=== PATIENT | female | born 1950 | race Caucasian/White ===

== ENCOUNTER → 2016-12-30 | Outpatient (CLI) | payer MEDICARE ==
[2016-12-30 12:18] LABS: CH 31.4; CHCM 33.3; HCT 38.4 % (34.0-46.0); HDW 2.89; HGB 12.7 gm/dL (11.4-16.0); MCH 31.5 pg (25.0-35.0); MCHC 33.2 g/dL (31.0-37.0); MCV 94.9 fL (80.0-100.0); Mean Platelet Volume 6.9; RBC 4.04 m/uL (3.80-5.40)
[2016-12-30 13:51] LABS: Appearance,Urine Clear (Clear); Bilirubin,Urine Negative (Negative); Glucose,Urine (UA) Negative (Negative); Ketones,Urine Negative (Negative); Leukocyte Esterase,Urine Trace (Negative); Mucus,Urine Rare /hpf; Nitrite,Urine Negative (Negative); Particle Count 331; Protein,Urine Negative (Negative); Specific Gravity,Urine 1.002 (1.001-1.035); Squamous Epithelial Cell,Urine <1 /hpf (0-4); UA Billing (MACRO vs. MICRO) MICRO; Urobilinogen,Urine <2.0 mg/dL (<2.0); WBC,Urine 2 /hpf (0-5)
[2016-12-30 14:56] LABS: Anion Gap 14 mmol/L; Blood Urea Nitrogen 23 mg/dL (7-17); Calcium 10.2 mg/dL (8.4-10.2); Carbon Dioxide 25 mmol/L (22-30); Chloride 104 mmol/L (98-107); Glucose 91 mg/dL (74-99); Iron 91 ug/dL (37-170); Non-African American GFR(MDRD) 56 (>60 ml/min/1.73 sqM); Potassium 4.4 mmol/L (3.5-5.1); Sodium 143 mmol/L (137-145)
[2016-12-30 15:09] LABS: Total Iron Binding Capacity 325 ug/dL (265-497)
[2016-12-31 16:02] LABS: Vitamin D, 1, 25-Dihydroxy 49 pg/mL (20 - 79)
== END | disposition home or self-care (01) ==
LOC: LABWHC1 11:35
PROVIDERS: ATTEND Nurse Practitioner Family
DX: N18.3 Chronic kidney disease, stage 3 (moderate) (principal); E83.52 Hypercalcemia; D64.9 Anemia, unspecified; N39.0 Urinary tract infection, site not specified; E21.3 Hyperparathyroidism, unspecified; E55.9 Vitamin D deficiency, unspecified
CPT/HCPCS: 36415; 80048; 81001; 82164; 82306; 82652; 82728; 83540; 83550; 83970; 85027

== ENCOUNTER → 2017-07-04 | Outpatient (CLI) | payer MEDICARE ==
[2017-07-04 12:07] LABS: Appearance,Urine Clear (Clear); Bilirubin,Urine Negative (Negative); Glucose,Urine (UA) Negative (Negative); Ketones,Urine Negative (Negative); Leukocyte Esterase,Urine Negative (Negative); Nitrite,Urine Negative (Negative); Protein,Urine Negative (Negative); Specific Gravity,Urine 1.004 (1.001-1.035); UA Billing (MACRO vs. MICRO) CHEM; Urobilinogen,Urine <2.0 mg/dL (<2.0)
[2017-07-04 12:36] LABS: Calcium 10.2 mg/dL (8.4-10.2); Magnesium 1.9 mg/dL (1.6-2.3); Phosphorous 3.4 mg/dL (2.5-4.5); Potassium 4.3 mmol/L (3.5-5.1); Uric Acid 5.3 mg/dL (3.7-7.4)
[2017-07-04 12:42] LABS: Basophils # (A) 0.1 k/uL (0-0.2); Basophils % (A) 1 %; CH 32.3; CHCM 33.4; Eosinophils # (A) 0.2 k/uL (0-0.7); Eosinophils % (A) 4 %; HCT 38.3 % (34.0-46.0); HDW 2.79; HGB 12.5 gm/dL (11.4-16.0); Luc # (Auto) 0.12; Luc % (Auto) 2; Lymphocytes # (A) 1.9 k/uL (1.0-4.8); Lymphocytes % (A) 38 %; MCH 31.8 pg (25.0-35.0); MCHC 32.7 g/dL (31.0-37.0); MCV 97.2 fL (80.0-100.0); Mean Platelet Volume 7.6; Monocytes # (A) 0.3 k/uL (0-1.0); Monocytes % (A) 6 %; Neutrophils # (A) 2.4 k/uL (1.3-7.7); Neutrophils % (A) 48 %; RBC 3.94 m/uL (3.80-5.40); RDW 15.3 % (11.5-15.5); WBC (Perox) 3.46
[2017-07-04 18:44] LABS: Iron Saturation 29.34 (12.00-45.00)
== END | disposition home or self-care (01) ==
LOC: LABWHC1 11:27
PROVIDERS: ATTEND Internal Medicine Nephrology
DX: E55.9 Vitamin D deficiency, unspecified (principal); E21.3 Hyperparathyroidism, unspecified; M10.9 Gout, unspecified; N39.0 Urinary tract infection, site not specified; D63.1 Anemia in chronic kidney disease; N18.3 Chronic kidney disease, stage 3 (moderate)
CPT/HCPCS: 36415; 80048; 81003; 82306; 82728; 83540; 83550; 83735; 83970; 84100; 84550; 85025

== ENCOUNTER → 2017-08-11 | Outpatient (CLI) | payer MEDICARE ==
[2017-08-11 14:21] LABS: ALT 25 U/L (9-52); AST 21 U/L (14-36); Alkaline Phosphatase 87 U/L (38-126); Anion Gap 10 mmol/L; Blood Urea Nitrogen 16 mg/dL (7-17); Calcium 10.1 mg/dL (8.4-10.2); Carbon Dioxide 24 mmol/L (22-30); Chloride 108 mmol/L (98-107); Glucose 88 mg/dL (74-99); Non-African American GFR(MDRD) 52 (>60 ml/min/1.73 sqM); Potassium 4.3 mmol/L (3.5-5.1); Sodium 142 mmol/L (137-145); Total Bilirubin 0.3 mg/dL (0.2-1.3); Total Protein 7.3 g/dL (6.3-8.2)
== END | disposition home or self-care (01) ==
LOC: LABWHC1 13:32
PROVIDERS: ATTEND Internal Medicine Endocrinology, Diabetes & Metabolism
DX: E21.0 Primary hyperparathyroidism (principal)
CPT/HCPCS: 36415; 80053; 81050; 82306; 82340; 83970

== ENCOUNTER → 2017-08-20 | Outpatient (CLI) | payer MEDICARE ==
--- NOTE | 2017-08-20 16:57 | US ---
EXAMINATION TYPE: US thyroid st tissue head/neck DATE OF EXAM: 08/20/2017 COMPARISON: NM parathyroid 07/22/2017 CLINICAL HISTORY: E21.0 HYPERPARATHYROIDISM. Patient states she has been taking thyroid medication si [id number]. Had radiation treatment for thyroid in 1982 due to Graves Disease. Difficult exam due to pa tient body habitus GLAND SIZE: Right Lobe: Unable to visualize thyroid tissue with certainty Left Lobe: Unable to visualize thyroid tissue with certainty NODULES RIGHT: # of nodules measured on right: 0 LEFT: # of nodules measured on left: 0 ISTHMUS: # of nodules measured in the isthmus: 0 Unable to visualize thyroid tissue with certainty. Had second techShyla, come in to confirm. Bila teral neck scanned, no evidence of lymphadenopathy. IMPRESSION: No thyroid gland tissue identified. No evidence of a discrete neck mass.
--- NOTE | 2017-08-21 17:47 | BD ---
EXAMINATION TYPE: MG DEXA axial skeleton. DATE OF EXAM: 08/20/2017 COMPARISON: NONE CLINICAL HISTORY: 66-year-old female hyperparathyroidism Height: 5 FT 2 1/2 IN Weight: 210 FRAX RISK QUESTIONS: Alcohol (3 or more units per day): NO Family History (Parent hip fracture): NO Glucocorticoids (More than 3mos): NO (Ex: prednisone, prednisolone, methylprednisolone, dexamethasone, and hydrocortisone). History of Fracture in Adulthood: NO Secondary Osteoporosis: 1. Type 1 Diabetes: NO 2. Hyperthyroidism: YES 3. Menopause before 45: YES 4. Malnutrition: NO 5. Chronic liver disease: NO Rheumatoid Arthritis: YES Current Tobacco Use: NO RISK FACTORS HISTORY OF: Surgery to Spine/Hip(right/left)/Wrist (right/left): LUMBAR SURG When: 2014 RT HIP REPLACEMENT 1994 REVISION IN 2004 Family History of Osteoporosis: YES Active: YES Postmenopausal woman: AGE 47 MEDICATIONS: Thyroid Medications: YES Which medication: LEVOTHYROXINE How Long: SINCE 1982 Additional Medications: LISINOPRIL, LASIX, AMITRIPTYLINE, AMBIEN, MUSCLE RELAXER, LEVOTHYROXINE ,ALLP URINAL, POTASSIUM Additional History: BOTH SHOULDERS HAVE BEEN REPLACED EXAM MEASUREMENTS: Bone mineral density about the L hip (g/cm2): 0.738 T Score values are as follows: -----L Neck: -2.2 -----L Total: -1.2 Bone mineral density has: DECREASED -9.9% since study of: 2007 IMPRESSION: Osteopenia (T Score between -2.5 and -1 as noted by T score values There is slightly increased risk of fracture and the patient may be considered for treatment. Re-Screen 2-5 years. NOTE: T-SCORE=SD OF THE YOUNG ADULT MEAN.
== END | disposition home or self-care (01) ==
LOC: RADUSWWP 15:54
PROVIDERS: ATTEND Internal Medicine Endocrinology, Diabetes & Metabolism
DX: M85.80 Other specified disorders of bone density and structure, unspecified site (principal); E21.0 Primary hyperparathyroidism
CPT/HCPCS: 76536; 77080

== ENCOUNTER → 2017-11-03 | Outpatient (CLI) | payer MEDICARE ==
--- NOTE | 2017-11-04 11:31 | MM ---
Reason for exam: screening (asymptomatic). Last mammogram was performed 2 years and 4 months ago. History: Patient is postmenopausal and has history of other cancer at age 32. Physical Findings: A clinical breast exam by your physician is recommended on an annual basis and results should be correlated with mammographic findings. MG 3D Screening Mammo W/Cad Bilateral CC and MLO view(s) were taken. Prior study comparison: June 27, 2015, bilateral MG screening mammo w CAD. June 04, 2012, bilateral digital screening mammo w/CAD. There are scattered fibroglandular densities. There is no discrete abnormality. No significant changes when compared with prior studies. ASSESSMENT: Negative, BI-RAD 1 RECOMMENDATION: Routine screening mammogram of both breasts in 1 year.
== END | disposition home or self-care (01) ==
LOC: RADMAMWWP 12:59
PROVIDERS: ATTEND Family Medicine
DX: Z12.31 Encounter for screening mammogram for malignant neoplasm of breast (principal)
CPT/HCPCS: 77063; 77067

== ENCOUNTER 2017-11-04 09:31 | Day surgery (SDC) | payer MEDICARE ==
[2017-11-03 09:13] VITALS: BMI 36.6
[~2017-11-04 09:31] MED LIST: LACTATED RINGERS 1,000 ML IV SCH
[2017-11-04] MEDS ORDERED: LIDOCAINE 1% 20 ML VIAL (10MG/ML) FOR IV START INTRADERMA ONE (10:05)
[2017-11-04 10:07] VITALS: TEMP 98.2
[2017-11-04] MEDS ORDERED: PROPOFOL 10 MG/ML 20 ML VIAL IV ONE (10:50)
[2017-11-04 11:28] VITALS: PULSE 89; RESP 16
--- NOTE | 2017-11-04 11:33 | P.PCN ---
Date of Procedure: 11/04/17 Procedure(s) Performed: Procedure: Total colonoscopy. Preoperative diagnosis: Screening for neoplasia, patient has history of diverticulitis. Postoperative diagnosis: Diverticulosis with no evidence of acute diverticulitis , strictures, polyps or cancer. Preparation: HalfLytely prep. Sedation: Was provided by anesthesia. Brief clinical history: The patient is a 67-year-old female who is scheduled for this evaluation for screening for neoplasia age being her risk factor. She had a colonoscopy back in 2009 and that showed sigmoid diverticulosis. The patient had a bout of diverticulitis at that time. No recent such episodes or any overt bleeding or anemia. Procedure: With the patient on her left lateral decubitus position and after informed consent and adequate sedation, the perianal area was inspected and it did not show any fissures or fistulas. There were no masses felt on digital rectal examination. The Olympus CFQ 160L video colonoscope was then inserted in the rectum in the usual fashion and advanced to the cecum. There were multiple diverticular orifices seen scattered, mostly on the left side with some on the right side and around the hepatic flexure with no evidence of acute diverticulitis or strictures. The mucosa appeared healthy. No polyps or tumors were seen. The patient tolerated the procedure well. Plan: The patient was reassured. Discussed dietary measures. She will follow- up with you as planned and I recommended repeat exam in 10 years.
[2017-11-04 11:43] VITALS: BP 124/70
== END 2017-11-04 12:12 | disposition home or self-care (01) ==
LOC: ORWHC2ENDO 09:31
DX: Z12.11 Encounter for screening for malignant neoplasm of colon (principal); K57.30 Diverticulosis of large intestine without perforation or abscess without bleeding; K21.9 Gastro-esophageal reflux disease without esophagitis; M79.7 Fibromyalgia; I10 Essential (primary) hypertension; Z86.718 Personal history of other venous thrombosis and embolism; M19.90 Unspecified osteoarthritis, unspecified site; E07.9 Disorder of thyroid, unspecified; M06.9 Rheumatoid arthritis, unspecified; Z79.899 Other long term (current) drug therapy
CPT/HCPCS: J2704; G0121; 45378

== ENCOUNTER → 2017-12-08 | Outpatient (CLI) | payer MEDICARE ==
[2017-12-08 13:21] LABS: HCT 35.9 % (34.0-46.0); HGB 12.4 gm/dL (11.4-16.0); MCH 32.1 pg (25.0-35.0); MCHC 34.5 g/dL (31.0-37.0); Mean Platelet Volume 7.1; Platelet Count 256 k/uL (150-450); RBC 3.86 m/uL (3.80-5.40); RDW 14.4 % (11.5-15.5); WBC 5.8 k/uL (3.8-10.6)
[2017-12-08 13:48] LABS: Albumin 4.1 g/dL (3.5-5.0); Calcium 10.1 mg/dL (8.4-10.2); Potassium 4.6 mmol/L (3.5-5.1); Total Bilirubin 0.4 mg/dL (0.2-1.3); Total Protein 6.9 g/dL (6.3-8.2)
[2017-12-08 14:06] LABS: T4, Free (Free Thyroxine) 1.84 ng/dL (0.78-2.19)
[2017-12-08 20:27] LABS: Parathyroid Hormone Intact 43.4 pg/mL (14.0-72.0)
[2017-12-08 20:42] LABS: Vitamin D 25 Hydroxy 26.9 ng/mL (30.0-100.0)
[2017-12-08 20:57] LABS: Thyroid Peroxidase Antibodies <28.0 U/mL (0.0-60.0)
[2017-12-09 16:38] LABS: Thyroid Stim Immun Quant <0.10 IU/L (<0.10)
[2017-12-12 18:36] LABS: Selenium 61 mcg/L (63-160)
== END | disposition home or self-care (01) ==
LOC: LABWHC1 12:50
PROVIDERS: ATTEND Internal Medicine Endocrinology, Diabetes & Metabolism
DX: E83.52 Hypercalcemia (principal); D64.9 Anemia, unspecified; N18.3 Chronic kidney disease, stage 3 (moderate); D55.9 Anemia due to enzyme disorder, unspecified; E56.9 Vitamin deficiency, unspecified; E05.00 Thyrotoxicosis with diffuse goiter without thyrotoxic crisis or storm
CPT/HCPCS: 36415; 80053; 82306; 83970; 84255; 84439; 84443; 84445; 84481; 85027; 86376

== ENCOUNTER → 2018-06-08 | Outpatient (CLI) | payer MEDICARE ==
[2018-06-08 14:22] LABS: HCT 43.3 % (34.0-46.0); MCH 30.6 pg (25.0-35.0); MCHC 32.3 g/dL (31.0-37.0); MCV 94.8 fL (80.0-100.0); Mean Platelet Volume 7.2; Platelet Count 288 k/uL (150-450); RBC 4.57 m/uL (3.80-5.40); RDW 14.3 % (11.5-15.5); WBC 7.7 k/uL (3.8-10.6)
[2018-06-08 14:26] LABS: Creatinine,Urine Random 65.6 mg/dL
[2018-06-08 14:44] LABS: Albumin 4.5 g/dL (3.5-5.0); Calcium 10.1 mg/dL (8.4-10.2); Potassium 4.2 mmol/L (3.5-5.1); Total Bilirubin 0.6 mg/dL (0.2-1.3); Total Protein 7.7 g/dL (6.3-8.2); Uric Acid 5.3 mg/dL (3.7-7.4)
[2018-06-08 19:23] LABS: Vitamin D 25 Hydroxy 39.2 ng/mL (30.0-100.0)
[2018-06-08 19:59] LABS: Parathyroid Hormone Intact 95.3 pg/mL (14.0-72.0)
== END | disposition home or self-care (01) ==
LOC: LABWHC1 13:46
PROVIDERS: ATTEND Internal Medicine Endocrinology, Diabetes & Metabolism
DX: N18.3 Chronic kidney disease, stage 3 (moderate) (principal); D63.1 Anemia in chronic kidney disease; E55.9 Vitamin D deficiency, unspecified; M10.9 Gout, unspecified; E21.3 Hyperparathyroidism, unspecified; E03.8 Other specified hypothyroidism
CPT/HCPCS: 36415; 80053; 82306; 82570; 83970; 84156; 84443; 84550; 85027

== ENCOUNTER → 2018-12-21 | Outpatient (CLI) | payer MEDICARE ==
[2018-12-21 19:34] LABS: Albumin 4.6 g/dL (3.80-4.90); Albumin/Globulin Ratio 2.09 (1.60-3.17); Anion Gap 11.7 mmol/L (4.00-12.00); Carbon Dioxide 26.3 mmol/L (21.6-31.8); Globulin 2.2 g/dL (1.6-3.3); LDL Cholesterol,Calculated 82.8 mg/dL (0.0-131.0); Potassium 4.3 mmol/L (3.5-5.5); Total Bilirubin 0.5 mg/dL (0.2-1.2); Total Protein 6.8 g/dL (6.2-8.2); VLDL Calculation 48.2 mg/dL (5.00-40.00); Vitamin D 25 Hydroxy 36.7 ng/mL (30.0-100.0)
[2018-12-21 20:05] LABS: Parathyroid Hormone Intact 66.5 pg/mL (14.0-72.0)
== END | disposition home or self-care (01) ==
LOC: LABWHC1 11:38
PROVIDERS: ATTEND Family Medicine
DX: N18.3 Chronic kidney disease, stage 3 (moderate) (principal); E21.0 Primary hyperparathyroidism
CPT/HCPCS: 36415; 80053; 80061; 82306; 83970; 84443

== ENCOUNTER → 2019-02-02 | Outpatient (CLI) | payer MEDICARE ==
[2019-02-02 12:22] LABS: HCT 41.3 % (34.0-46.0); HGB 13.5 gm/dL (11.4-16.0); MCH 30.8 pg (25.0-35.0); MCHC 32.8 g/dL (31.0-37.0); Platelet Count 265 k/uL (150-450); RBC 4.39 m/uL (3.80-5.40); RDW 15.3 % (11.5-15.5); WBC 5.4 k/uL (3.8-10.6)
[2019-02-02 19:02] LABS: Parathyroid Hormone Intact 71.1 pg/mL (14.0-72.0)
[2019-02-02 20:11] LABS: Anion Gap 10.6 mmol/L (4.00-12.00); Calcium 9.6 mg/dL (8.7-10.3); Carbon Dioxide 24.4 mmol/L (21.6-31.8); Potassium 3.9 mmol/L (3.5-5.5); Uric Acid 4.9 mg/dL (2.9-7.7)
[2019-02-02 20:23] LABS: Creatinine,Urine Random 11.5 mg/dL; Vitamin D 25 Hydroxy 36.9 ng/mL (30.0-100.0)
[2019-02-02 20:24] LABS: Total Protein,Urine Random <4.0 mg/dL (0.0-13.5)
== END | disposition home or self-care (01) ==
LOC: LABWHC1 11:45
PROVIDERS: ATTEND Nurse Practitioner Family
DX: N18.3 Chronic kidney disease, stage 3 (moderate) (principal); N25.81 Secondary hyperparathyroidism of renal origin; E55.9 Vitamin D deficiency, unspecified; M10.9 Gout, unspecified
CPT/HCPCS: 36415; 80048; 82306; 82570; 83970; 84156; 84550; 85027

== ENCOUNTER → 2019-03-10 | Outpatient (CLI) | payer MEDICARE ==
--- NOTE | 2019-03-10 11:22 | XR ---
EXAM TYPE: LUMBAR SPINE X RAY SERIES COMPARISON: NONE HISTORY: Pain TECHNIQUE: 3 views are submitted. FINDINGS: Extensive postsurgical changes are seen. Diffuse osteopenia noted. Hypertrophic arthropathy of the SI joints. Multilevel degenerative disc disease. Vascular calcifications noted. Grade 1 anterolisthesis L4 on L5. IMPRESSION: 1. Extensive postsurgical change with grade 1 anterolisthesis L4 on L5. 2. Multilevel degenerative disc disease with diffuse osteopenia. Suspect multilevel foraminal encroac hment. There is poor definition of the superior margin of the L3 vertebral body which may be technica l rather than related pathology or infection. Recommend follow-up CT or MRI.
== END | disposition home or self-care (01) ==
LOC: RADXRMAIN 10:52
PROVIDERS: ATTEND Family Medicine
DX: M43.16 Spondylolisthesis, lumbar region (principal); M51.36 Other intervertebral disc degeneration, lumbar region; M85.88 Other specified disorders of bone density and structure, other site; Z98.890 Other specified postprocedural states
CPT/HCPCS: 72100

== ENCOUNTER → 2019-04-28 | Outpatient (CLI) | payer MEDICARE ==
[2019-04-28 19:27] LABS: Vitamin D 25 Hydroxy 42.2 ng/mL (30.0-100.0)
[2019-04-28 19:29] LABS: African American GFR (CKD) 54.5 (60.0-200.0); Albumin 4.5 g/dL (3.80-4.90); Albumin/Globulin Ratio 2.14 (1.60-3.17); Anion Gap 11.3 mmol/L (4.00-12.00); Calcium 9.7 mg/dL (8.7-10.3); Carbon Dioxide 24.7 mmol/L (21.6-31.8); Globulin 2.1 g/dL (1.6-3.3); Potassium 4.2 mmol/L (3.5-5.5); Total Bilirubin 0.3 mg/dL (0.2-1.2); Total Protein 6.6 g/dL (6.2-8.2)
== END | disposition home or self-care (01) ==
LOC: LABWHC1 12:30
PROVIDERS: ATTEND Internal Medicine Endocrinology, Diabetes & Metabolism
DX: E21.0 Primary hyperparathyroidism (principal)
CPT/HCPCS: 36415; 80053; 82306; 83970

== ENCOUNTER → 2019-10-05 | Outpatient (CLI) | payer MEDICARE ==
[2019-10-05 15:42] LABS: Basophils # (A) 0.1 k/uL (0-0.2); Basophils % (A) 1 %; Eosinophils # (A) 0.3 k/uL (0-0.7); Eosinophils % (A) 4 %; HCT 43.1 % (34.0-46.0); HGB 13.7 gm/dL (11.4-16.0); Lymphocytes # (A) 2.2 k/uL (1.0-4.8); Lymphocytes % (A) 27 %; MCH 30.1 pg (25.0-35.0); MCHC 31.8 g/dL (31.0-37.0); MCV 94.5 fL (80.0-100.0); Mean Platelet Volume 7.4; Monocytes # (A) 0.6 k/uL (0-1.0); Monocytes % (A) 7 %; Neutrophils # (A) 4.7 k/uL (1.3-7.7); Neutrophils % (A) 59 %; Platelet Count 298 k/uL (150-450); RBC 4.56 m/uL (3.80-5.40); RDW 13.5 % (11.5-15.5); WBC 8.1 k/uL (3.8-10.6)
[2019-10-05 16:16] LABS: Appearance,Urine Clear (Clear); Bilirubin,Urine Negative (Negative); Blood,Urine Negative (Negative); Color,Urine Light Yellow; Glucose,Urine (UA) Negative (Negative); Hyaline Casts,Urine 6 /lpf (0-2); Ketones,Urine Negative (Negative); Leukocyte Esterase,Urine Moderate (Negative); Mucus,Urine Rare /hpf; Nitrite,Urine Negative (Negative); PH, Urine 6.5 (5.0-8.0); Protein,Urine Negative (Negative); RBC,Urine <1 /hpf (0-5); Specific Gravity,Urine 1.013 (1.001-1.035); Squamous Epithelial Cell,Urine 1 /hpf (0-4); Urobilinogen,Urine <2.0 mg/dL (<2.0); WBC,Urine 15 /hpf (0-5)
[2019-10-05 16:29] LABS: Protein/Creatinine Ratio,Urine 0.1
[2019-10-06 00:11] LABS: % Iron Saturation 19.34 (12.00-45.00); African American GFR (CKD) 49.5 (60.0-200.0); Albumin 4.8 g/dL (3.80-4.90); Anion Gap 9.9 mmol/L (4.00-12.00); BUN/Creat Ratio 18.46 Ratio (12.00-20.00); Calcium 9.6 mg/dL (8.7-10.3); Carbon Dioxide 28.1 mmol/L (21.6-31.8); Magnesium 2.1 mg/dL (1.5-2.4); Non-African American GFR(CKD) 42.7 (60.0-200.0); Phosphorus 3.3 mg/dL (2.4-5.1); Potassium 4.1 mmol/L (3.5-5.5); Uric Acid 4.9 mg/dL (2.9-7.7)
[2019-10-06 00:19] LABS: Ferritin 120.2 ng/mL (10.0-291.0)
== END | disposition home or self-care (01) ==
LOC: LABWHC1 14:44
PROVIDERS: ATTEND Internal Medicine Nephrology
DX: N39.0 Urinary tract infection, site not specified (principal); D63.1 Anemia in chronic kidney disease; N18.9 Chronic kidney disease, unspecified; E55.9 Vitamin D deficiency, unspecified; N25.81 Secondary hyperparathyroidism of renal origin; R80.9 Proteinuria, unspecified
CPT/HCPCS: 36415; 80048; 81001; 82040; 82306; 82570; 82728; 83540; 83550; 83735; 83970; 84100; 84156; 84550; 85025

== ENCOUNTER → 2019-11-01 | Outpatient (CLI) | payer MEDICARE ==
[2019-11-02 01:01] LABS: African American GFR (CKD) 54.2 (60.0-200.0); Albumin 4.6 g/dL (3.80-4.90); Albumin/Globulin Ratio 2.09 (1.60-3.17); Anion Gap 12.7 mmol/L (4.00-12.00); BUN/Creat Ratio 21.67 Ratio (12.00-20.00); Calcium 9.8 mg/dL (8.7-10.3); Carbon Dioxide 26.3 mmol/L (21.6-31.8); Globulin 2.2 g/dL (1.6-3.3); Non-African American GFR(CKD) 46.7 (60.0-200.0); Potassium 4.4 mmol/L (3.5-5.5); Total Bilirubin 0.4 mg/dL (0.3-1.2); Total Protein 6.8 g/dL (6.2-8.2)
== END | disposition home or self-care (01) ==
LOC: LABWHC1 14:21
PROVIDERS: ATTEND Internal Medicine Endocrinology, Diabetes & Metabolism
DX: N18.3 Chronic kidney disease, stage 3 (moderate) (principal); E21.0 Primary hyperparathyroidism
CPT/HCPCS: 36415; 80053; 82306; 83970

== ENCOUNTER → 2020-03-29 | Outpatient (CLI) | payer MEDICARE ==
[2020-03-29 15:35] LABS: Appearance,Urine Clear (Clear); Bilirubin,Urine Negative (Negative); Blood,Urine Negative (Negative); Color,Urine Light Yellow; Glucose,Urine (UA) Negative (Negative); Hyaline Casts,Urine 4 /lpf (0-2); Ketones,Urine Negative (Negative); Leukocyte Esterase,Urine Small (Negative); Mucus,Urine Rare /hpf; Nitrite,Urine Negative (Negative); Protein,Urine Negative (Negative); Specific Gravity,Urine 1.008 (1.001-1.035); Squamous Epithelial Cell,Urine <1 /hpf (0-4); Urobilinogen,Urine <2.0 mg/dL (<2.0); WBC,Urine 3 /hpf (0-5)
[2020-03-29 15:45] LABS: Basophils # (A) 0.1 k/uL (0-0.2); Basophils % (A) 1 %; Eosinophils # (A) 0.2 k/uL (0-0.7); Eosinophils % (A) 3 %; HCT 41.3 % (34.0-46.0); HGB 13.1 gm/dL (11.4-16.0); Lymphocytes # (A) 1.4 k/uL (1.0-4.8); Lymphocytes % (A) 19 %; MCH 30.8 pg (25.0-35.0); MCHC 31.9 g/dL (31.0-37.0); MCV 96.6 fL (80.0-100.0); Mean Platelet Volume 8.4; Monocytes # (A) 0.5 k/uL (0-1.0); Monocytes % (A) 7 %; Neutrophils # (A) 5.2 k/uL (1.3-7.7); Neutrophils % (A) 69 %; Platelet Count 257 k/uL (150-450); RBC 4.27 m/uL (3.80-5.40); RDW 14.4 % (11.5-15.5); WBC 7.5 k/uL (3.8-10.6)
[2020-03-29 23:36] LABS: % Iron Saturation 12.65 (12.00-45.00)
[2020-03-29 23:37] LABS: African American GFR (CKD) 54.2 (60.0-200.0); Albumin 4.5 g/dL (3.80-4.90); BUN/Creat Ratio 15.83 Ratio (12.00-20.00); Calcium 9.9 mg/dL (8.7-10.3); Magnesium 2.2 mg/dL (1.5-2.4); Non-African American GFR(CKD) 46.7 (60.0-200.0); Phosphorus 2.8 mg/dL (2.4-5.1); Potassium 4.8 mmol/L (3.5-5.5)
[2020-03-29 23:44] LABS: Ferritin 63.8 ng/mL (10.0-291.0)
[2020-03-30 01:21] LABS: Creatinine,Urine Random 39.1 mg/dL
[2020-03-30 02:05] LABS: Total Protein,Urine Random <4.0 mg/dL (0.0-13.5)
== END | disposition home or self-care (01) ==
LOC: LABWHC1 12:52
PROVIDERS: ATTEND Internal Medicine Nephrology
DX: N18.3 Chronic kidney disease, stage 3 (moderate) (principal); D63.1 Anemia in chronic kidney disease; E55.9 Vitamin D deficiency, unspecified; N25.81 Secondary hyperparathyroidism of renal origin; M10.9 Gout, unspecified; N39.0 Urinary tract infection, site not specified; R80.9 Proteinuria, unspecified
CPT/HCPCS: 36415; 80048; 81001; 82040; 82306; 82570; 82728; 83540; 83550; 83735; 83970; 84100; 84156; 84550; 85025

== ENCOUNTER → 2020-04-05 | Outpatient (CLI) | payer MEDICARE ==
--- NOTE | 2020-04-05 14:11 | XR ---
EXAMINATION TYPE: XR chest 2V DATE OF EXAM: 04/05/2020 COMPARISON: 05/02/14 HISTORY: Shortness of breath TECHNIQUE: Frontal and lateral views of the chest are obtained. FINDINGS: Scattered senescent parenchymal changes noted. Hyperinflation compatible with COPD. No evidence for infiltrate. No evidence for atelectasis. Heart size is stable. Mediastinal structures are stable and grossly unremarkable. No evidence for hilar prominence. Degenerative changes dorsal spine. IMPRESSION: 1. No evidence for acute pulmonary disease.
== END | disposition home or self-care (01) ==
LOC: RADXRMAIN 13:51
PROVIDERS: ATTEND Family Medicine
DX: R06.09 Other forms of dyspnea (principal)
CPT/HCPCS: 71046

== ENCOUNTER → 2020-05-26 | Outpatient (CLI) | payer MEDICARE ==
[2020-05-26 20:45] LABS: African American GFR (CKD) 60.2 (60.0-200.0); Albumin 4.5 g/dL (3.80-4.90); Albumin/Globulin Ratio 1.88 (1.60-3.17); Anion Gap 7.2 mmol/L (4.00-12.00); Calcium 10.2 mg/dL (8.7-10.3); Carbon Dioxide 28.8 mmol/L (21.6-31.8); Globulin 2.4 g/dL (1.6-3.3); Non-African American GFR(CKD) 51.9 (60.0-200.0); Potassium 4.8 mmol/L (3.5-5.5); Total Bilirubin 0.5 mg/dL (0.2-1.2); Total Protein 6.9 g/dL (6.2-8.2)
== END | disposition home or self-care (01) ==
LOC: LABWHC1 11:44
PROVIDERS: ATTEND Internal Medicine Endocrinology, Diabetes & Metabolism
DX: E21.0 Primary hyperparathyroidism (principal); E03.8 Other specified hypothyroidism
CPT/HCPCS: 36415; 80053; 82306; 83970; 84443

== ENCOUNTER → 2020-05-26 | Outpatient (CLI) | payer MEDICARE ==
--- NOTE | 2020-05-30 13:55 | MM ---
Reason for exam: screening (asymptomatic). Last mammogram was performed 2 years and 7 months ago. History: Patient is postmenopausal and has history of other cancer at age 32. Physical Findings: A clinical breast exam by your physician is recommended on an annual basis and results should be correlated with mammographic findings. MG 3D Screening Mammo W/Cad Bilateral CC and MLO view(s) were taken. XCCL view(s) were taken of the left breast. Prior study comparison: November 03, 2017, bilateral MG 3d screening mammo w/cad. June 27, 2015, bilateral MG screening mammo w CAD. There are scattered fibroglandular densities. No significant changes when compared with prior studies. ASSESSMENT: Benign, BI-RAD 2 RECOMMENDATION: Routine screening mammogram of both breasts in 1 year.
== END | disposition home or self-care (01) ==
LOC: RADMAMWWP 11:03
PROVIDERS: ATTEND Family Medicine
DX: Z12.31 Encounter for screening mammogram for malignant neoplasm of breast (principal)
CPT/HCPCS: 77063; 77067

== ENCOUNTER → 2020-10-16 | Outpatient (CLI) | payer MEDICARE ==
[2020-10-16 13:23] LABS: Basophils # (A) 0.1 k/uL (0-0.2); Basophils % (A) 1 %; Eosinophils # (A) 0.4 k/uL (0-0.7); Eosinophils % (A) 5 %; HCT 42.5 % (34.0-46.0); HGB 13.7 gm/dL (11.4-16.0); Lymphocytes # (A) 2.1 k/uL (1.0-4.8); Lymphocytes % (A) 27 %; MCH 30.9 pg (25.0-35.0); MCHC 32.2 g/dL (31.0-37.0); MCV 95.8 fL (80.0-100.0); Mean Platelet Volume 7.6; Monocytes # (A) 0.5 k/uL (0-1.0); Monocytes % (A) 7 %; Neutrophils # (A) 4.5 k/uL (1.3-7.7); Neutrophils % (A) 59 %; Platelet Count 289 k/uL (150-450); RBC 4.43 m/uL (3.80-5.40); RDW 15.3 % (11.5-15.5); WBC 7.7 k/uL (3.8-10.6)
[2020-10-16 13:46] LABS: Creatinine,Urine Random 18.5 mg/dL; Protein/Creatinine Ratio,Urine 0.595
[2020-10-16 13:48] LABS: Appearance,Urine Clear (Clear); Bilirubin,Urine Negative (Negative); Blood,Urine Negative (Negative); Color,Urine Colorless; Glucose,Urine (UA) Negative (Negative); Ketones,Urine Negative (Negative); Leukocyte Esterase,Urine Small (Negative); Mucus,Urine Rare /hpf; Nitrite,Urine Negative (Negative); PH, Urine 5.5 (5.0-8.0); Protein,Urine Negative (Negative); Specific Gravity,Urine 1.005 (1.001-1.035); Urobilinogen,Urine <2.0 mg/dL (<2.0); WBC,Urine 2 /hpf (0-5)
[2020-10-16 21:03] LABS: Ferritin 90.1 ng/mL (10.0-291.0)
[2020-10-16 21:13] LABS: % Iron Saturation 43.17 (12.00-45.00); African American GFR (CKD) 60.2 (60.0-200.0); Albumin 4.9 g/dL (3.80-4.90); Anion Gap 12.4 mmol/L (4.00-12.00); Carbon Dioxide 26.6 mmol/L (21.6-31.8); Non-African American GFR(CKD) 51.9 (60.0-200.0); Phosphorus 3.2 mg/dL (2.4-5.1); Uric Acid 5.2 mg/dL (2.9-7.7)
== END | disposition home or self-care (01) ==
LOC: LABWHC1 11:50
PROVIDERS: ATTEND Nurse Practitioner Family
DX: N18.30 Chronic kidney disease, stage 3 unspecified (principal); D63.1 Anemia in chronic kidney disease; E55.9 Vitamin D deficiency, unspecified; N25.81 Secondary hyperparathyroidism of renal origin; M10.9 Gout, unspecified; N39.0 Urinary tract infection, site not specified; R80.9 Proteinuria, unspecified
CPT/HCPCS: 36415; 80048; 81001; 82040; 82306; 82570; 82728; 83540; 83550; 83735; 83970; 84100; 84156; 84550; 85025

== ENCOUNTER → 2020-10-18 | Outpatient (CLI) | payer MEDICARE ==
[2020-10-18 20:15] LABS: Chol/HDL Ratio 2.75; LDL Cholesterol,Calculated 50.4 mg/dL (0.0-131.0); VLDL Calculation 33.6 mg/dL (5.00-40.00)
== END | disposition home or self-care (01) ==
LOC: LABWHC1 12:30
PROVIDERS: ATTEND Family Medicine
DX: I10 Essential (primary) hypertension (principal)
CPT/HCPCS: 36415; 80061

== ENCOUNTER → 2021-07-27 | Outpatient (CLI) | payer MEDICARE ==
[2021-07-27 13:58] LABS: Appearance,Urine Clear (Clear); Bilirubin,Urine Negative (Negative); Blood,Urine Negative (Negative); Color,Urine Light Yellow; Glucose,Urine (UA) Negative (Negative); Hyaline Casts,Urine 1 /lpf (0-2); Ketones,Urine Negative (Negative); Leukocyte Esterase,Urine Large (Negative); Mucus,Urine Rare /hpf; Nitrite,Urine Negative (Negative); PH, Urine 5.5 (5.0-8.0); Protein,Urine Negative (Negative); RBC,Urine 1 /hpf (0-5); Specific Gravity,Urine 1.011 (1.001-1.035); Squamous Epithelial Cell,Urine <1 /hpf (0-4); Urobilinogen,Urine <2.0 mg/dL (<2.0); WBC,Urine 7 /hpf (0-5)
[2021-07-27 14:06] LABS: Basophils # (A) 0.1 k/uL (0-0.2); Basophils % (A) 1 %; Eosinophils # (A) 0.3 k/uL (0-0.7); Eosinophils % (A) 4 %; HCT 41.9 % (34.0-46.0); HGB 13.7 gm/dL (11.4-16.0); Lymphocytes % (A) 28 %; MCH 31.3 pg (25.0-35.0); MCHC 32.6 g/dL (31.0-37.0); MCV 95.8 fL (80.0-100.0); Mean Platelet Volume 7.9; Monocytes # (A) 0.5 k/uL (0-1.0); Monocytes % (A) 6 %; Neutrophils # (A) 4.4 k/uL (1.3-7.7); Neutrophils % (A) 59 %; Platelet Count 278 k/uL (150-450); RBC 4.37 m/uL (3.80-5.40); RDW 14.2 % (11.5-15.5); WBC 7.4 k/uL (3.8-10.6)
[2021-07-27 14:14] LABS: INR 0.9 (<1.2); Partial Thromboplastin Time 23.2 sec (22.0-30.0)
[2021-07-27 14:26] LABS: Albumin 4.5 g/dL (3.5-5.0); Calcium 10.7 mg/dL (8.4-10.2); Total Bilirubin 0.5 mg/dL (0.2-1.3); Total Protein 7.4 g/dL (6.3-8.2)
== END | disposition home or self-care (01) ==
LOC: LABPAT 13:06
PROVIDERS: ATTEND Orthopaedic Surgery
DX: Z01.812 Encounter for preprocedural laboratory examination (principal)
CPT/HCPCS: 80053; 81001; 85025; 85610; 85730; 86850; 86900; 86901; 87070

== ENCOUNTER 2021-08-07 11:49 | Day surgery (SDC) | payer MEDICARE ==
[2021-08-03 11:23] VITALS: BMI 38.4
[~2021-08-07 11:49] MED LIST changes: +ACETAMINOPHEN TAB 500 MG TAB PO PRN; +GABAPENTIN 300 MG CAP PO PRN; -LACTATED RINGERS 1,000 ML IV SCH; +MELOXICAM 7.5 MG TAB PO PRN; +TRANEXAMIC ACID 1,000 MG in SODIUM CHLORIDE 0.9% 100 ML IVPB PRN
[2021-08-07] MEDS ORDERED: MIDAZOLAM 2 MG/2 ML VIAL IV PRN (11:50)
[2021-08-07] MEDS ORDERED: ONDANSETRON 4 MG/2 ML VIAL IVP ONE (11:50)
[2021-08-07] MEDS ORDERED: LIDOCAINE 1% (10MG/ML) FOR IV START INTRADERMA PRN (11:50)
[2021-08-07] MEDS ORDERED: DEXAMETHASONE SOD PHOSPHATE 4 MG/ML 1 ML VIAL IV ONE (11:50)
[2021-08-07] MEDS ORDERED: LACTATED RINGERS 1,000 ML IV SCH (11:50)
[2021-08-07] MEDS ORDERED: HYDROmorphone 0.5 MG/0.5 ML SYRINGE IVP PRN ×2 (13:13)
[2021-08-07] MEDS ORDERED: ONDANSETRON 4 MG/2 ML VIAL IVP PRN (13:13)
[2021-08-07] MEDS ORDERED: NALOXONE 0.4 MG/ML 1 ML VIAL IV PRN (13:13)
[2021-08-07] MEDS ORDERED: HYDROmorphone 0.2 MG/1 ML SYRINGE IVP PRN (13:13)
[2021-08-07] MEDS ORDERED: MAGNESIUM HYDROXIDE 2,400 MG/10 ML CUP PO PRN (13:13)
[2021-08-07] MEDS ORDERED: SODIUM CHLORIDE 0.9% IRRIG 1,000 ML BTL IRRIGATION ONE (13:14)
[2021-08-07] MEDS ORDERED: PROPOFOL 10 MG/ML 20 ML VIAL IV ONE (13:14)
[2021-08-07] MEDS ORDERED: MIDAZOLAM 2 MG/2 ML VIAL ONE (13:14)
[2021-08-07] MEDS ORDERED: TRANEXAMIC ACID 1,000 MG/10 ML VIAL ONE (13:14)
[2021-08-07] MEDS ORDERED: HEPARIN SODIUM,PORCINE 10,000 UNIT/ML 1 ML VIAL ONE (13:14)
[2021-08-07] MEDS ORDERED: fentaNYL (PF) 50 MCG/ML 2 ML AMP ONE (13:14)
[2021-08-07] MEDS ORDERED: SODIUM CHLORIDE 0.9% 100 ML BAG ONE (13:14)
[2021-08-07] MEDS ORDERED: HYDROcodone/APAP 7.5-325MG 1 EACH TAB PO PRN (13:15)
[2021-08-07] MEDS ORDERED: ceFAZolin 1,000 MG in SODIUM CHLORIDE 0.9% 1,000 ML IRRIGATION ONE (13:19)
[2021-08-07] MEDS: ROPIVACAINE/EPI/CLONIDINE/KET 50 ML SYRINGE MISCELLANE PRN ×2 (13:44→14:24)
--- NOTE | 2021-08-07 14:27 | P.OP ---
Date of Procedure: 08/07/21 Preoperative Diagnosis: Severe osteoarthritis left hip Postoperative Diagnosis: Severe osteoarthritis left hip Procedure(s) Performed: Left total hip arthroplasty with a direct anterior approach Implants: [employer] Polarstem standard size 3 [employer] R3, 3 hole hemispherical acetabular shell, 48 mm [employer] Reflection 6.5 mm cancellus screw, 20 mm 2 [employer] R3, XLPE 20 acetabular liner [employer] Oxinium femoral head 32 mm, +0 All components were press-fit. The articulation is Oxinium on polyethylene. Anesthesia: spinal Surgeon: Edgar Ware Telephone Triage Nurse #1: Isabel Rain Estimated Blood Loss (ml): 50 Pathology: other (Femoral head) Condition: stable Disposition: PACU Indications for Procedure: After failure of conservative treatment we discussed the surgical and nonsurgical treatment options at length. Patient wishes to proceed with a total hip arthroplasty with a direct anterior approach. Complications specific to this procedure were discussed at length, including but not limited to infection, leg length discrepancy, dislocation, nerve injury, and fracture. Covid-19 was also discussed at length with the patient, and they are aware of the current policies and procedures. The patient was given the option of delaying surgery, but they elect to proceed knowing these risks. Patient is aware of all these complications and informed consent was obtained Operative Findings: The operative findings are consistent with severe osteoarthritis the left hip Description of Procedure: Patient was seen and evaluated in the preoperative area and the consent was reviewed. The operative site was marked with a skin marker. The patient was then brought to the operating room and given preoperative antibiotics intr avenously. 1 g of Tranexamic acid was also given intravenously. A spinal anesthetic was administered by the anesthesia department. The patient was then placed on the [place] table with the bony prominences well-padded. The hip area was then prepped with a ChloraPrep solution and draped in the usual sterile fashion. A universal timeout was then performed, which confirmed the patient's name, surg ical site, ALLERGIES, and procedure being performed on the consent. Next the incision site was located at 1 cm distal and 2 cm lateral to the anterior superior iliac spine. The skin and subcutaneous tissues were sharply incised. Incision was carefully dissected down to the fascia overlying the tensor fascia ga muscle. This fascia was then incised in line with the incision. Care was taken to stay laterally in order to avoid injuring the lateral femoral cutaneous nerve. Next, using blunt finger dissection, the tensor fascia ga muscle was dissected off its investing fascia. The muscle was then carefully retracted laterally with a cobra retractor over the lateral neck of the femur. Next, the circumflex vessels were identified and cauterized using the AquaMantis device. The anterior hip capsule was then exposed. The capsule was then opened and an inverted T fashion. Cobra retractors were then placed intracapsularly. The retractors were maintained intracapsular throughout the procedure. The proximal femur was then visualized. Fluoroscopic x-rays were then taken in order to evaluate the preoperative leg lengths. A small amount of traction was placed on the leg. The femoral neck was then osteotomized appropriate level above the lesser trochanter. A small wedge of bone was then removed from the remaining femoral head. Next, using a corkscrew the femoral head was removed from the acetabulum. On gross visual inspection, the femoral head had complete loss of articular cartilage and multiple periarticular osteophytes. The femoral head was then measured. Attention was then turned to the acetabulum. The acetabulum was exposed and any remaining labrum was excised. Sequential reaming of the acetabulum was performed using fluoroscopic guidance until there was a good bed of bleeding cancellus bone. When the appropriate size was reached, a trial was then placed. The position and fit of the trial was checked with fluoroscopy. The trial was then removed. Then, using fluoroscopic guidance, the final implant was impacted at 20 of anteversion and 40 of abduction, and fully seated in the acetabulum. 2 screws were then placed in the acetabulum. Again fluoroscopy was used to check position of the screws. Next, the liner was then impacted, with a 20 elevated liner located in the anterior superior quadrant. Component locking was confirmed. Attention was then directed to the femur. With the aid of the [place] table, the femur was externally rotated to approximately 130, extended, and adducted under the opposite leg. A side hook was then placed under the proximal femur, and the side hook elevator was used to elevate the proximal femur while releasing the capsule. Retractors were then placed. A capsular release was performed, as well as a release of the conjoined tendon, which afforded excellent visualization of the proximal femur. Next, a box osteotome was used to lateralize the proximal femur. A icer hand was then used to locate the femoral canal. Sequential broaching was then performed with appropriate size which afforded excellent fixation in the proximal femur. A trial was then placed with appropriate head and neck, and the hip was gently reduced with the aid of the [place] table. Fluoroscopy was then used to check position of the components, as well as to ensure equal leg lengths. The hip was then gently dislocated and the trials were then removed. Final implants were then impacted and the hip was again reduced. Final fluoroscopic x-rays confirmed that the components were in anatomic position, as well as equal leg lengths. The hip was also taken through range of motion, and found to be stable. The hip was then copiously irrigated with antibiotic solution with pulsatile lavage. The hip was then irrigated with Irrisept solution. The soft tissues were then injected with a ropivacaine solution, which consisted of 246.25 mg of ropivacaine, 0.5 mg of epinephrine, 30 mg of Toradol, 80 g of clonidine, and 48.45 mL of sterile water, for a total of 100 mL of fluid injected. A second dose of 1 g of Tranexamic acid was also given intravenously. Any blood collected by [employer] was then returned to the patient at this time. The fascia was then closed with 2-0 strata fix suture. The subcutaneous tissue was closed with 3-0 Vicryl. The subcuticular tissue was closed with 3-0 strata fix suture. The skin was then closed with Exofin skin glue. After the glue and dried, and Optifoam silver impregnated dressing was applied. The patient was then transferred to the recovery room in stable condition. The data entry assistant YOANNA Keyes was required due to the complexity of surgery, and the need for skilled neurosurgical nurse for positioning, draping, exposure, retraction, and closure of the wound.
[2021-08-07] MEDS ORDERED: LACTATED RINGERS 1,000 ML IV ONE (14:35)
--- NOTE | 2021-08-07 14:41 | FL ---
EXAMINATION TYPE: FL guidance operating room, XR Hip Limited LT DATE OF EXAM: 08/07/2021 CLINICAL HISTORY: Left hip pain and osteoarthritis. TECHNIQUE: Fluoroscopy. Intraoperative limited views left hip. COMPARISON: None. FINDINGS: Fluoroscopic guidance was provided during left hip replacement procedure performed by Dr. Ware. A total of 33 seconds of fluoroscopic time was utilized during the procedure and 5 spot in traoperative images are acquired. Images acquired show partial bony resection with placement of metallic prosthesis that appears satisf actory in position on frontal projection on intraoperative images obtained. IMPRESSION: As Above.
[2021-08-07] MEDS: HYDROmorphone 0.5 MG/0.5 ML SYRINGE IVP PRN ×2 (14:59→16:15)
--- NOTE | 2021-08-07 15:38 | XR ---
EXAMINATION TYPE: XR Hip Limited LT DATE OF EXAM: 08/07/2021 CLINICAL HISTORY: Left hip pain and osteoarthritis. TECHNIQUE: Single AP portable view of left hip is obtained immediately postoperatively. COMPARISON: None. FINDINGS: Metallic hardware from left hip arthroplasty is seen and appears satisfactory in alignment and position. There is evidence of recent surgery with surrounding subcutaneous gas. Oval calcifica tion in pelvis suspected 3.5 cm bladder calculus. Correlate clinically. Urology referral advised if n ot known finding. IMPRESSION: Metallic hardware from left hip arthroplasty is satisfactory in position.
[2021-08-07] MEDS: SODIUM CHLORIDE 0.9% 1,000 ML IV SCH (17:41)
[2021-08-07] MEDS ORDERED: SENNOSIDES-DOCUSATE SODIUM 1 EACH TAB PO SCH (21:00)
[2021-08-07 21:08] VITALS: RESP 20
[2021-08-07] MEDS: HYDROcodone/APAP 7.5-325MG 1 EACH TAB PO PRN (21:29)
[2021-08-08] MEDS: HYDROcodone/APAP 7.5-325MG 1 EACH TAB PO PRN ×2 (02:06→07:58)
[2021-08-08] MEDS: SODIUM CHLORIDE 0.9% 1,000 ML IV SCH (06:04)
[2021-08-08 06:18] VITALS: BP 110/68; PULSE 76; TEMP 97.6
[2021-08-08 06:21] LABS: Basophils # (A) 0.1 k/uL (0-0.2); Basophils % (A) 1 %; Eosinophils # (A) 0.2 k/uL (0-0.7); Eosinophils % (A) 2 %; HCT 33.9 % (34.0-46.0); HGB 11.6 gm/dL (11.4-16.0); Lymphocytes % (A) 24 %; MCH 32.8 pg (25.0-35.0); MCHC 34.2 g/dL (31.0-37.0); MCV 95.8 fL (80.0-100.0); Mean Platelet Volume 7.6; Monocytes # (A) 0.6 k/uL (0-1.0); Monocytes % (A) 7 %; Neutrophils # (A) 5.5 k/uL (1.3-7.7); Neutrophils % (A) 65 %; Platelet Count 228 k/uL (150-450); RBC 3.54 m/uL (3.80-5.40); RDW 14.7 % (11.5-15.5); WBC 8.4 k/uL (3.8-10.6)
--- NOTE | 2021-08-08 07:49 | P.DS ---
Providers Expected date of discharge: 08/08/21 Attending physician: Edgar Ware Consults: 08/07/21 13:13 Consult Physician Routine Consulting Provider: Vaughn Hazel Consult Reason/Comments: medical management Do you want consulting provider notified?: Yes Primary care physician: Vaughn Hazel - Discharge Diagnosis(es) (1) Primary localized osteoarthritis of left hip Current Visit: Yes Status: Acute (2) Status post total replacement of left hip Current Visit: Yes Status: Acute Hospital Course: This is a 70-year-old female with known history of degenerative arthritis of the left hip. The patient presents for evaluation. After discussion and consideration patient elects to proceed with total hip arthroplasty with direct anterior approach. The patient is seen preoperatively by primary care physician and cleared for surgery. Patient is admitted to [facility] on 08/07/2021 for total hip arthroplasty with direct anterior approach. The procedure is performed without complication or sequelae. The patient is doing well postoperatively. Labs and vital signs are stable on day of discharge. On day of discharge patient's hip incision is healing well. There is minimal erythema. There is no drainage noted at this time. There is minimal soft tissue swelling to the hip and thigh. Patient has full foot and ankle motion without difficulty or pain. Neurovascular status to the left lower extremity is intact. Patient is discharged to home in good condition. Please see med rec for accurate list of home medications. Patient Condition at Discharge: Good Plan - Discharge Summary Discharge Rx Participant: Yes New Discharge Prescriptions: New Sennosides [Senokot] 2 tab PO DAILY PRN #60 tablet PRN Reason: Constipation Ondansetron Odt [Zofran Odt] 1 tab PO Q8HR PRN #10 tab PRN Reason: Nausea Apixaban [Eliquis] 2.5 mg PO BID 35 Days #70 tab HYDROcodone/APAP 7.5-325MG [[place] 7.5-325] 1 - 2 tab PO Q6H PRN #32 tab PRN Reason: Pain No Action busPIRone HCl [Buspar] 10 mg PO DAILY PRN PRN Reason: Anxiety Cholecalciferol [Vitamin D3] 2,000 unit PO DAILY lisinopriL [Zestril] 20 mg PO HS Amitriptyline HCl [Elavil] 25 mg PO W/SUPPER Levothyroxine Sodium [Synthroid] 125 mcg PO QAM Furosemide [Lasix] 20 mg PO DAILY Aspirin 325 mg PO W/SUPPER allopurinoL [Zyloprim] 300 mg PO DAILY Cetirizine HCl [Zyrtec] 10 mg PO DAILY Potassium Chloride [Klor-Con 10] 10 meq PO BID L.acidoph/B.long/L.plant/B.lac [Probiotic Acidophilus Beads] 1 cap PO DAILY tiZANidine [Zanaflex] 2 mg PO HS Selenium 200 mcg PO W/SUPPER Zaleplon [Sonata] 10 mg PO HS Acetaminophen [Tylenol Extra Strength] 1,000 mg PO DIRECTED PRN PRN Reason: Pain Pravastatin Sodium [Pravachol] 40 mg PO HS Discharge Medication List Amitriptyline HCl [Elavil] 25 mg PO W/SUPPER 05/12/14 [History] Aspirin 325 mg PO W/SUPPER 05/12/14 [History] Cetirizine HCl [Zyrtec] 10 mg PO DAILY 05/12/14 [History] Cholecalciferol [Vitamin D3] 2,000 unit PO DAILY 05/12/14 [History] Furosemide [Lasix] 20 mg PO DAILY 05/12/14 [History] L.acidoph/B.long/L.plant/B.lac [Probiotic Acidophilus Beads] 1 cap PO DAILY 05/12/14 [History] Levothyroxine Sodium [Synthroid] 125 mcg PO QAM 05/12/14 [History] Potassium Chloride [Klor-Con 10] 10 meq PO BID 05/12/14 [History] allopurinoL [Zyloprim] 300 mg PO DAILY 05/12/14 [History] busPIRone HCl [Buspar] 10 mg PO DAILY PRN 05/12/14 [History] lisinopriL [Zestril] 20 mg PO HS 05/12/14 [History] tiZANidine [Zanaflex] 2 mg PO HS 05/13/14 [History] Selenium 200 mcg PO W/SUPPER 02/09/18 [History] Zaleplon [Sonata] 10 mg PO HS 02/09/18 [History] Acetaminophen [Tylenol Extra Strength] 1,000 mg PO DIRECTED PRN 08/03/21 [History] Pravastatin Sodium [Pravachol] 40 mg PO HS 11/12/21 [History] Apixaban [Eliquis] 2.5 mg PO BID 35 Days #70 tab 08/07/21 [Rx] HYDROcodone/APAP 7.5-325MG [[place] 7.5-325] 1 - 2 tab PO Q6H PRN #32 tab 08/07/21 [Rx] Ondansetron Odt [Zofran Odt] 1 tab PO Q8HR PRN #10 tab 08/07/21 [Rx] Sennosides [Senokot] 2 tab PO DAILY PRN #60 tablet 08/07/21 [Rx] Follow up Appointment(s)/Referral(s): Edgar Ware DO [Doctor of Osteopathic Medicine] - 2 Weeks Activity/Diet/Wound Care/Special Instructions: Weightbearing as tolerated with walker. Leave dressing intact. Dressing may be removed by home care nurse or by patient in 7 days. Then change dressing twice daily until follow up. May shower with initial dressing intact and after removal. If dressing become saturated, please remove. Please take Eliquis postoperatively to lower the risk of blood clots. Recommend use of compression stockings daily until follow up to help prevent swelling and blood clots. May remove at night before sleeping. Please follow-up with [facility] in 2 weeks and call with any questions or concerns, . Discharge Disposition: HOME WITH HOME HEALTH SERVICES
[2021-08-08] MEDS ORDERED: APIXABAN 2.5 MG TABLET PO SCH (09:00)
== END 2021-08-08 12:28 | disposition home health service (06) ==
LOC: OR 11:49 → 5NMEDONC 16:37 → OR 08-08 12:28
PROVIDERS: ATTEND Orthopaedic Surgery
DX: M16.12 Unilateral primary osteoarthritis, left hip (principal); I10 Essential (primary) hypertension; E03.9 Hypothyroidism, unspecified; N28.9 Disorder of kidney and ureter, unspecified; H91.90 Unspecified hearing loss, unspecified ear; Z87.891 Personal history of nicotine dependence; E05.00 Thyrotoxicosis with diffuse goiter without thyrotoxic crisis or storm; M06.9 Rheumatoid arthritis, unspecified; Z86.718 Personal history of other venous thrombosis and embolism; E66.01 Morbid (severe) obesity due to excess calories; Z68.38 Body mass index [BMI] 38.0-38.9, adult; M85.80 Other specified disorders of bone density and structure, unspecified site; N25.81 Secondary hyperparathyroidism of renal origin; G47.00 Insomnia, unspecified; F32.A Depression, unspecified; Z90.49 Acquired absence of other specified parts of digestive tract; Z98.890 Other specified postprocedural states; M79.7 Fibromyalgia; Z98.51 Tubal ligation status; Z98.49 Cataract extraction status, unspecified eye; Z97.3 Presence of spectacles and contact lenses; Z83.3 Family history of diabetes mellitus; Z82.49 Family history of ischemic heart disease and other diseases of the circulatory system; Z83.42 Family history of familial hypercholesterolemia; Z84.89 Family history of other specified conditions; Z83.49 Family history of other endocrine, nutritional and metabolic diseases; Z79.890 Hormone replacement therapy; Z79.82 Long term (current) use of aspirin; Z79.899 Other long term (current) drug therapy; Z88.1 Allergy status to other antibiotic agents; Z88.5 Allergy status to narcotic agent; Z88.2 Allergy status to sulfonamides; Z88.8 Allergy status to other drugs, medicaments and biological substances; Z88.0 Allergy status to penicillin
CPT/HCPCS: 97162; 97166; 86891; 86900; 86901; 85025; 86850; 88300; 87635; 73501; 27130; C1776; J2250; J1644; J0690 ×3; J2405; J3010; J2704; J1170

== ENCOUNTER 2021-09-05 13:17 | Emergency (ER) | payer MEDICARE ==
[2021-09-05 13:27] VITALS: TEMP 98.3
[2021-09-05] MEDS ORDERED: HYDROmorphone 1 MG/ML 1 ML SYRINGE IVP STA (13:44)
--- NOTE | 2021-09-05 14:40 | XR ---
EXAMINATION TYPE: XR Hip LT and AP Pelvis DATE OF EXAM: 09/05/2021 COMPARISON: 08/07/2021 HISTORY: Pain TECHNIQUE: A single AP view of the pelvis is obtained. Two views of the left hip are obtained. FINDINGS: There is postsurgical changes bilaterally with diffuse osteopenia. Correlate for bladder c alculus. Surgical change lower lumbar spine. SI joints symmetric. No acute fracture. No dislocation. IMPRESSION: 1. Postsurgical change with no acute fracture. If concern for loosening or infection correlate with n [place] medicine exam. 2. Correlate for bladder calculus.
--- NOTE | 2021-09-05 16:13 | ED ---
Lower Extremity Injury HPI - General Chief Complaint: Extremity Injury, Lower Stated Complaint: hip pain Time Seen by Provider: 09/05/21 13:33 Source: patient, RN notes reviewed Mode of arrival: wheelchair Limitations: no limitations - History of Present Illness Initial Comments: 70-year-old female presents to emergency department complaining of left hip pain. She notes she recently had a hip replacement done fell yesterday and thinks that her hip is out. She notes that she called her orthopedics they got her appointment at 1:15 today. She notes that she was unable to make it that long so she came to the emergency room for evaluation. She denied any other issues or complaints. She notes it is painful to walk on. She does have good range of motion sensation and strength in her left lower extremity. She denied chest pain shortness of breath headache nausea vomiting diarrhea constipation fever fatigue chills. - Related Data Home Medications Medication Instructions Recorded Confirmed Amitriptyline HCl [Elavil] 25 mg PO W/SUPPER 05/12/14 08/07/21 Aspirin 325 mg PO W/SUPPER 05/12/14 08/07/21 Cetirizine HCl [Zyrtec] 10 mg PO DAILY 05/12/14 08/07/21 Cholecalciferol [Vitamin D3] 2,000 unit PO DAILY 05/12/14 08/07/21 Furosemide [Lasix] 20 mg PO DAILY 05/12/14 08/07/21 L.acidoph/B.long/L.plant/B.lac 1 cap PO DAILY 05/12/14 08/07/21 [Probiotic Acidophilus Beads] Levothyroxine Sodium [Synthroid] 125 mcg PO QAM 05/12/14 08/07/21 Potassium Chloride [Klor-Con 10] 10 meq PO BID 05/12/14 08/07/21 allopurinoL [Zyloprim] 300 mg PO DAILY 05/12/14 08/07/21 busPIRone HCl [Buspar] 10 mg PO DAILY PRN 05/12/14 08/07/21 lisinopriL [Zestril] 20 mg PO HS 05/12/14 08/07/21 tiZANidine [Zanaflex] 2 mg PO HS 05/13/14 08/07/21 Selenium 200 mcg PO W/SUPPER 02/09/18 08/07/21 Zaleplon [Sonata] 10 mg PO HS 02/09/18 08/07/21 Acetaminophen [Tylenol Extra 1,000 mg PO DIRECTED PRN 08/03/21 08/07/21 Strength] Pravastatin Sodium [Pravachol] 40 mg PO HS 08/03/21 08/07/21 Previous Rx's Medication Instructions Recorded Apixaban [Eliquis] 2.5 mg PO BID 35 Days #70 tab 08/07/21 HYDROcodone/APAP 7.5-325MG [[place] 1 - 2 tab PO Q6H PRN #32 tab 08/07/21 7.5-325] Ondansetron Odt [Zofran Odt] 1 tab PO Q8HR PRN #10 tab 08/07/21 Sennosides [Senokot] 2 tab PO DAILY PRN #60 tablet 08/07/21 Allergies Allergy/AdvReac Type Severity Reaction Status Date / Time cephalexin Allergy Abdominal Verified 09/05/21 13:23 Pain codeine Allergy Abdominal Verified 09/05/21 13:23 Pain Neuromuscular Blockers, Allergy Rash/Hives Verified 09/05/21 13:23 Steroidal [Steroidal Neuromuscular Blockers] Penicillins Allergy Abdominal Verified 09/05/21 13:23 Pain propoxyphene napsylate Allergy ache all Verified 09/05/21 13:23 [From Darvocet-N] over-flu like symptoms Sulfa (Sulfonamide Allergy rash, ache Verified 09/05/21 13:23 Antibiotics) all over ciprofloxacin [From Cipro] AdvReac Nausea & Verified 09/05/21 13:23 Vomiting ciprofloxacin HCl AdvReac Nausea & Verified 09/05/21 13:23 [From Cipro] Vomiting levofloxacin [From Levaquin] AdvReac Vomiting Verified 09/05/21 13:23 Review of Systems ROS Statement: Those systems with pertinent positive or pertinent negative responses have been documented in the HPI. ROS Other: All systems not noted in ROS Statement are negative. Past Medical History Past Medical History: Deep Vein Thrombosis (DVT), Eye Disorder, Fibromyalgia, GERD/Reflux, Hypertension, Osteoarthritis (OA), Rheumatoid Arthritis (RA), Thyroid Disorder Additional Past Medical History / Comment(s): Gato cataracts, hx of kidney stones, past hx of kidney problems due to fci use of anti inflammatory meds, no problems now, hx DVT in leg, hx of diverticulitis History of Any Multi-Drug Resistant Organisms: None Reported Past Surgical History: Appendectomy, Back Surgery, Joint Replacement, Orthopedic Surgery, Tubal Ligation Additional Past Surgical History / Comment(s): right hip replaced & revision, left total shoulder, left fused ankle, sinus surg. x 2, RT SHOULDE ATHROPLASTY,back-rods and screws L1-L5 Past Anesthesia/Blood Transfusion Reactions: Previous Problems w/ Anesthesia, Postoperative Nausea & Vomiting (PONV) Additional Past Anesthesia/Blood Transfusion Reaction / Comment(s): BP low after one of surg. CLAUSTERPHOBIA Past Psychological History: Anxiety, Depression Smoking Status: Former smoker Past Alcohol Use History: Rare Past Drug Use History: None Reported - Past Family History Mother Family Medical History: Coronary Artery Disease (CAD) Additional Family Medical History / Comment(s): CABG Father Family Medical History: Myocardial Infarction ([place]) General Exam Limitations: no limitations General appearance: alert, in no apparent distress Head exam: Present: atraumatic, normocephalic, normal inspection Eye exam: Present: normal appearance, PERRL, EOMI. Absent: scleral icterus, conjunctival injection, periorbital swelling ENT exam: Present: normal exam, mucous membranes moist Neck exam: Present: normal inspection Respiratory exam: Present: normal lung sounds bilaterally. Absent: respiratory distress, wheezes, rales, rhonchi, stridor Cardiovascular Exam: Present: regular rate, normal rhythm, normal heart sounds. Absent: systolic murmur, diastolic murmur, rubs, gallop, clicks Extremities exam: Present: normal inspection, full ROM, normal capillary refill. Absent: tenderness, pedal edema, joint swelling, calf tenderness Left Hip exam: Present: normal inspection, tenderness (Round incision.). Absent: full ROM, swelling, abrasion, laceration, ecchymosis, deformity, crepitus, dislocation Neurological exam: Present: alert, oriented X3 Psychiatric exam: Present: normal affect, normal mood Skin exam: Present: warm, dry, intact, normal color. Absent: rash Course Vital Signs 09/05/21 13:23 Temperature 98.3 F Pulse Rate 79 Respiratory 20 Rate Blood Pressure 135/83 O2 Sat by Pulse 98 Oximetry Medical Decision Making - Medical Decision Making 70-year-old female with left hip pain after falling. Recent hip replacement. X-ray of the left hip, 1 mg of Dilaudid ordered. X-ray of the left hip and pelvis negative for any acute fractures dislocations or hardware malfunction. Patient was informed of results and is agreeable with discharge home with follow-up to orthopedics. Case discussed with Dr. Del Rio - Radiology Data Radiology results: report reviewed, image reviewed X-ray left hip and pelvis: Postsurgical change with no acute fracture. His concern for loosening or infection correlate with nuclear medicine exam. Correlate for bladder calculus. Disposition Clinical Impression: Left hip pain Disposition: HOME SELF-CARE Condition: Stable Instructions (If sedation given, give patient instructions): Hip Pain (ED) Additional Instructions: Please return to the Emergency Department if symptoms worsen or any other con cerns. Follow-up with orthopedics as soon as possible. Continue take at home pain medication as prescribed. Get plenty or rest. Avoid any strenuous activity or exercise. Is patient prescribed a controlled substance at d/c from ED?: No Referrals: Vaughn Hazel DO [Primary Care Provider] - 1-2 days Time of Disposition: 16:12
[2021-09-05 16:45] VITALS: BP 128/70; PULSE 89; RESP 16
== END 2021-09-05 16:42 | disposition home or self-care (01) ==
LOC: EC 13:17
DX: M25.552 Pain in left hip (principal); I10 Essential (primary) hypertension; M06.9 Rheumatoid arthritis, unspecified; M79.7 Fibromyalgia; K21.9 Gastro-esophageal reflux disease without esophagitis; F32.A Depression, unspecified; F41.9 Anxiety disorder, unspecified; Z87.891 Personal history of nicotine dependence; Z86.718 Personal history of other venous thrombosis and embolism; Z79.82 Long term (current) use of aspirin; Z79.890 Hormone replacement therapy; Z79.899 Other long term (current) drug therapy; Z96.642 Presence of left artificial hip joint; Z79.01 Long term (current) use of anticoagulants; Z88.5 Allergy status to narcotic agent; Z88.2 Allergy status to sulfonamides; Z88.0 Allergy status to penicillin; Z88.1 Allergy status to other antibiotic agents; Z88.8 Allergy status to other drugs, medicaments and biological substances; W19.XXXA Unspecified fall, initial encounter
CPT/HCPCS: 73502; 99284; 96374; J1170

== ENCOUNTER → 2021-09-07 | Outpatient (CLI) | payer MEDICARE ==
--- NOTE | 2021-09-07 19:22 | CT ---
EXAMINATION TYPE: CT hip LT wo con CT DLP: 464.4 mGycm, Automated exposure control for dose reduction was used. DATE OF EXAM: 09/07/2021 10:32 AM COMPARISON: Extremity radiograph 09/05/2021. CLINICAL INDICATION:Female, 70 years old with history of m25.552 L hip pain, inability to ambulate, p ain, post hip replacement TECHNIQUE: Axial images were obtained of the left hip without the use of IV contrast. Additional cor onal and sagittal reformatted images and soft tissue and bone window were obtained for review. 3-D re construction was created on a separate workstation. FINDINGS: Left hip arthroplasty changes. There is periprosthetic fractures through the proximal porti on of the femur. This fracture line is seen extending from the pleural femur along the the anterior c ortex and rotating medially and terminating approximately 4.2 cm from the stem tip inferiorly. It gutierrez dware appears intact. About 6 mm displacement noted of the cortex. Tissues trach mild left lateral hi p subcutaneous edema. Few scattered colonic diverticula are present. IMPRESSION: Left proximal femur periprosthetic fracture 6 mm displacement cortex. Hardware appears intact.
== END | disposition home or self-care (01) ==
LOC: RADCTMAIN 09:58
PROVIDERS: ATTEND Orthopaedic Surgery
DX: M97.02XA Periprosthetic fracture around internal prosthetic left hip joint, initial encounter (principal)

== ENCOUNTER 2021-09-11 12:57 | Observation (INO) | payer MEDICARE ==
[2021-09-11] MEDS ORDERED: LACTATED RINGERS 1,000 ML IV ONE ×2 (13:52→17:30)
[2021-09-11] MEDS ORDERED: ONDANSETRON 4 MG/2 ML VIAL ONE (13:55)
[2021-09-11 14:30] LABS: Basophils # (A) 0.1 k/uL (0-0.2); Basophils % (A) 1 %; Eosinophils # (A) 0.1 k/uL (0-0.7); Eosinophils % (A) 2 %; HCT 39.5 % (34.0-46.0); HGB 12.8 gm/dL (11.4-16.0); Lymphocytes # (A) 1.1 k/uL (1.0-4.8); Lymphocytes % (A) 17 %; MCH 31.3 pg (25.0-35.0); MCHC 32.4 g/dL (31.0-37.0); MCV 96.5 fL (80.0-100.0); Mean Platelet Volume 8.3; Monocytes # (A) 0.3 k/uL (0-1.0); Monocytes % (A) 4 %; Neutrophils # (A) 4.7 k/uL (1.3-7.7); Neutrophils % (A) 74 %; Platelet Count 266 k/uL (150-450); RBC 4.09 m/uL (3.80-5.40); RDW 14.6 % (11.5-15.5); WBC 6.3 k/uL (3.8-10.6)
[2021-09-11 14:40] LABS: Albumin 4.1 g/dL (3.5-5.0); Calcium 10.1 mg/dL (8.4-10.2); Potassium 4.1 mmol/L (3.5-5.1); Total Bilirubin 0.4 mg/dL (0.2-1.3)
[2021-09-11 14:44] LABS: Partial Thromboplastin Time 25.9 sec (22.0-30.0); Prothrombin Time 10.8 sec (9.0-12.0)
[2021-09-11] MEDS ORDERED: MAGNESIUM HYDROXIDE 2,400 MG/10 ML CUP PO PRN (15:23)
[2021-09-11] MEDS ORDERED: HYDROmorphone 0.2 MG/1 ML SYRINGE IVP PRN (15:23)
[2021-09-11] MEDS ORDERED: NALOXONE 0.4 MG/ML 1 ML VIAL IV PRN (15:23)
[2021-09-11] MEDS ORDERED: ONDANSETRON 4 MG/2 ML VIAL IVP PRN (15:23)
[2021-09-11] MEDS ORDERED: HYDROmorphone 0.5 MG/0.5 ML SYRINGE IVP PRN (15:23)
[2021-09-11] MEDS ORDERED: HYDROcodone/APAP 7.5-325MG 1 EACH TAB PO PRN (15:27)
[2021-09-11] MEDS ORDERED: CISATRACURIUM 2 MG/ML 5 ML VIAL IV ONE (15:58)
[2021-09-11] MEDS ORDERED: KETAMINE 10 MG/ML 20 ML VIAL ONE (15:58)
[2021-09-11] MEDS ORDERED: SODIUM CHLORIDE 0.9% IRRIG 1,000 ML BTL IRRIGATION ONE (15:58)
[2021-09-11] MEDS ORDERED: TRANEXAMIC ACID 1,000 MG/10 ML VIAL ONE (15:58)
[2021-09-11] MEDS ORDERED: HEPARIN SODIUM,PORCINE 10,000 UNIT/ML 1 ML VIAL ONE (15:58)
[2021-09-11] MEDS ORDERED: PROPOFOL 10 MG/ML 20 ML VIAL IV ONE (15:58)
[2021-09-11] MEDS ORDERED: HYDROmorphone (PF) 1 MG/ML ONE (15:58)
[2021-09-11] MEDS ORDERED: fentaNYL (PF) 50 MCG/ML 2 ML AMP ONE (15:58)
[2021-09-11] MEDS ORDERED: SODIUM CHLORIDE 0.9% 100 ML BAG ONE (15:58)
[2021-09-11] MEDS ORDERED: NEOSTIGMINE 1 MG/ML 10 ML VIAL ONE (15:58)
[2021-09-11] MEDS ORDERED: MIDAZOLAM 2 MG/2 ML VIAL ONE (15:58)
[2021-09-11] MEDS ORDERED: LIDOCAINE 1% INJ 10MG/ML (20 ML MDV) ONE (15:58)
[2021-09-11] MEDS ORDERED: GLYCOPYRROLATE 0.2 MG/ML 2 ML VIAL ONE (15:58)
[2021-09-11] MEDS ORDERED: SUCCINYLCHOLINE CHLORIDE 100 MG/5 ML SYR IV ONE (15:58)
[2021-09-11] MEDS ORDERED: CLINDAMYCIN 600 MG in SODIUM CHLORIDE 0.9% 1,000 ML IRRIGATION ONE ×4 (16:33)
--- NOTE | 2021-09-11 18:05 | P.OP ---
Date of Procedure: 09/11/21 Preoperative Diagnosis: Periprosthetic femur fracture left hip Postoperative Diagnosis: Periprosthetic femur fracture left hip Procedure(s) Performed: 1. Open reduction and internal fixation left periprosthetic femur fracture 2. Revision left total hip arthroplasty Implants: [employer] readapt femoral standard offset size 18, 190 mm revision femoral component [employer] OR30, 36 mm ID, 48 mm OD, Oxinium dual mobility liner [employer] OR30, 22 mm ID, 36 mm OD, XLPE Dual mobility insert [employer] Oxinium femoral head 22 m, +0 Accord 2.0 mm cable 5 All components were press-fit. The articulation is Oxinium on polyethylene. Anesthesia: ABHISHEK Surgeon: Edgar Ware Ammonia Operator #1: Isabel Rain Estimated Blood Loss (ml): 400 (150 mL returned with Cell Saver) Pathology: none sent Condition: stable Disposition: PACU Indications for Procedure: This is a 62-year-old female that has had a recent total hip arthroplasty approximately 1 month ago. Last week she experienced immediate pain in her left hip and presented to the emergency room where x-rays were obtained. X-rays were read as negative and told to follow-up with me in the office. Patient was seen and evaluated in the office and a CAT scan was ordered of her left hip which showed a periprosthetic fracture of her left hip. After discussing the surgical nonsurgical treatment options with her at length I've recommended a revision of her total hip arthroplasty with open reduction and internal fixation of the periprosthetic fracture. Informed Consent was obtained. Operative Findings: The operative findings are consistent with a periprosthetic fracture of the left proximal femur and subsidence of the femoral stem. Description of Procedure: Patient was seen and evaluated in the preoperative area, consent was reviewed, and the surgical site was marked with a skin marker. Patient was then brought to the operating room and given prophylactic antibiotics intravenously. 1 g of Tranexamic acid was also given. A general anesthetic was administered by the anesthesia department. The patient was then placed on the operative table and placed in the lateral decubitus position with the bony prominences well-padded. The hip area was then prepped and draped in usual sterile fashion. A universal timeout was then performed, which confirmed the patient's name, surgical site, ALLERGIES, and procedure being performed. Next the incision site was located in the lateral aspect of the hip, centered at the tip of the greater trochanter.. The skin and subcutaneous tissues were sharply incised. Incision was carefully dissected down to the fascia. This fascia was then incised in line with the incision. Next, a Charnley retractor was then placed in the abductors were identified. The anterior one third of the abductors was released off the trochanter and one large sleeve. The anterior hip capsule was then exposed. The capsule was then opened. The proximal femur was then visualized. The hip was then gently dislocated. The proximal femur was then evaluated and found to have a periprosthetic fracture of the medial aspect of the proximal femur. The femoral stem had subsided as well. The femoral stem was easily removed with a Rominger. Next, using a cable passer 5 cables were passed across the proximal femur which afforded excellent reduction and fixation of the fracture. Attention was then directed to the acetabulum. The acetabulum was found to be well fixed. The acetabular liner was easily removed removed with removal tool. A dual mobility liner was then inserted with component locking confirmed. Attention was then directed to re-directed to the femur. The proximal femur was reexposed. Retractors were then placed. The potential reaming of the femoral canal was performed to 18 mm, which afforded excellent fixation a trial head neck was then placed in the hip was then reduced. The leg lengths were checked and found to be equal. Hip was then taken through full range of motion, was stable throughout. Next, the hip was gently dislocated, and the trials were removed. Final implants were then impacted and the hip was again reduced. The leg lengths were again examined and found to be equal. The hip was also taken through range of motion, and found to be stable. The hip was then copiously irrigated with antibiotic solution with pulsatile lavage. The hip was then irrigated with Irrisept solution. The abductors were then repaired with #5 Ethibond suture with drill holes to the bone. The fascia was closed with #2 strata fix suture. The subcutaneous tissue was closed with 3-0 Vicryl. The subcuticular tissue was closed with 3-0 strata fix suture. The skin was then closed with Exofin glue. The patient was then transferred to the recovery room in stable condition. The Asst.Isabel José Antonio, PA was required due to the complexity of surgery, and the need for skilled surgical garment inspector for positioning, draping, exposure, retraction, and closure of the wound.and closure of the wound.
[2021-09-11] MEDS ORDERED: HYDROmorphone 0.5 MG/0.5 ML SYRINGE IVP ONE ×2 (18:50→18:55)
[2021-09-11] MEDS: HYDROmorphone 1 MG/ML 1 ML SYRINGE IVP ONE ×4 (19:02→19:22)
--- NOTE | 2021-09-11 19:55 | XR ---
EXAMINATION TYPE: XR Hip Limited LT DATE OF EXAM: 09/11/2021 COMPARISON: 09/05/2021 HISTORY: Hip surgery TECHNIQUE: Single view FINDINGS: There is left hip prosthesis. Components appear in anatomic position. There is a revision c ompared to last exam. IMPRESSION: No complicating process seen.
[2021-09-11] MEDS ORDERED: APIXABAN 5 MG TAB PO SCH (21:00)
[2021-09-11] MEDS: SENNOSIDES-DOCUSATE SODIUM 1 EACH TAB PO SCH (21:44)
[2021-09-11] MEDS: SODIUM CHLORIDE 0.9% 1,000 ML IV SCH (21:44)
[2021-09-12] MEDS: HYDROmorphone 0.5 MG/0.5 ML SYRINGE IVP PRN ×5 (00:04→19:21)
[2021-09-12] MEDS: APIXABAN 2.5 MG TABLET PO SCH ×2 (07:36→20:23)
[2021-09-12] MEDS: HYDROcodone/APAP 7.5-325MG 1 EACH TAB PO PRN ×3 (08:37→22:31)
[2021-09-12] MEDS: SODIUM CHLORIDE 0.9% 1,000 ML IV SCH ×2 (08:38→21:37)
[2021-09-12 09:26] LABS: Basophils # (A) 0.04 X 10*3/uL (0.00-0.10); Basophils % (A) 0.4 %; Eosinophils # (A) 0 X 10*3/uL (0.04-0.35); Eosinophils % (A) 0 %; HCT 33.6 % (37.2-46.3); HGB 10.2 g/dL (12.0-15.0); Lymphocytes # (A) 1.52 X 10*3/uL (0.90-5.00); Lymphocytes % (A) 16.3 %; MCH 30.6 pg (27.0-32.0); MCHC 30.4 g/dL (32.0-37.0); MCV 100.9 fL (80.0-97.0); Mean Platelet Volume 9.9 fL (9.5-12.2); Monocytes # (A) 0.89 X 10*3/uL (0.20-1.00); Monocytes % (A) 9.5 %; Neutrophils # (A) 6.85 X 10*3/uL (1.80-7.70); Neutrophils % (A) 73.5 %; Platelet Count 254 X 10*3/uL (140-440); RBC 3.33 X 10*6/uL (4.10-5.20); RDW 14.8 % (11.5-14.5); WBC 9.33 X 10*3/uL (4.50-10.00)
--- NOTE | 2021-09-12 11:18 | P.PN ---
Subjective Progress Note Date: 09/12/21 This patient is a 70- year old female who is status-post open reduction and internal fixation left periprosthetic femur fracture on 09/11/[address] Edgar Ware. Patient is also status-post left total hip arthoplasty on 08/07/21. Today is post-operative day #1. Patient is seen and examined bedside. She has not yet been up with physical therapy, she has been up to the bedside commode this morning. Patient is feeling ok without any specific complaints. She denies chest pain, shortness of breath, nausea, vomiting. Vital signs stable. Objective - Vital Signs Vital signs: Vital Signs Temp 97.6 F 09/12/21 08:18 Pulse 100 09/12/21 08:18 Resp 16 09/12/21 08:18 BP 90/57 09/12/21 08:18 Pulse Ox 98 09/12/21 08:18 Intake & Output 09/11/21 09/12/21 09/12/21 18:59 06:59 18:59 Intake Total 1151 0 Output Total 400 Balance 751 0 Weight 92.079 kg 92.079 kg Intake: IV 1151 0 Output: Estimated Blood Loss 400 Other: Voiding Method Bedside Commode # Voids 1 - Exam On examination, the patient is sitting up in bed in no apparent distress. She is alert and oriented 3. On inspection of the left hip, there is a clean, dry, intact Optifoam dressing in place along the lateral hip. There is also a well- healing incision at the anterior hip. There is mild swelling of the thigh, the thigh is soft and compressible. Patient has good strength and gxawa-ud-pegeue of her left ankle and toes. Motor and sensory function is intact of the left lower extremity. Left lower extremity warm and well perfused with brisk capillary refill distally. The calf is soft and nontender to palpation. - Labs CBC & Chem 7: 09/12/21 05:52 09/11/21 14:14 Labs: Abnormal Lab Results - Last 24 Hours (Table) 09/12/21 Range/Units 05:52 RBC 3.33 L (4.10-5.20) X 10*6/uL Hgb 10.2 L (12.0-15.0) g/dL Hct 33.6 L (37.2-46.3) % MCV 100.9 H (80.0-97.0) fL MCHC 30.4 L (32.0-37.0) g/dL RDW 14.8 H (11.5-14.5) % Eosinophils # 0 L (0.04-0.35) X 10*3/uL Assessment and Plan Assessment: Status-post open reduction and internal fixation left periprosthetic femur fracture on 09/11/21. Post-operative day #1. Plan: - 50% weightbearing on operative extremity. Up with assistance, up with a walker. - Physical therapy for gait and balance training. - Resume Eliquis for DVT prophylaxis. - Pain management as needed. Decrease use of IV diluadid as tolerated. - Post-operative antibiotics complete. - Internal medicine consulted for yumiko-operative medical management. - Anticipate discharge home with home health care on Friday.
[2021-09-12] MEDS ORDERED: SENNOSIDES 8.6 MG TAB PO PRN (12:16)
[2021-09-12] MEDS ORDERED: ONDANSETRON ODT 4 MG TAB PO PRN (12:16)
[2021-09-12] MEDS ORDERED: busPIRone HCl 10 MG TAB PO PRN (12:16)
--- NOTE | 2021-09-12 12:26 | P.HPIM ---
History of Present Illness Patient is a 70-year-old female admitted for open reduction and internal fixation of the periprosthetic fracture. Patient is still in a lot of pain because of which is not being discharged today. Patient is on Eliquis for DVT prophylaxis. Patient does have history of insomnia. Patient denied any fever chills nausea dysuria. REVIEW OF SYSTEMS: CONSTITUTIONAL: No fever, no malaise, no fatigue. HEENT: No recent visual problems or hearing problems. Denied any sore throat. CARDIOVASCULAR: No chest pain, orthopnea, PND, no palpitations, no syncope. PULMONARY: No shortness of breath, no cough, no hemoptysis. GASTROINTESTINAL: No diarrhea, no nausea, no vomiting, no abdominal pain. NEUROLOGICAL: No headaches, no weakness, no numbness. HEMATOLOGICAL: Denies any bleeding or petechiae. GENITOURINARY: Denies any burning micturition, frequency, or urgency. MUSCULOSKELETAL/RHEUMATOLOGICAL: Denies any joint pain, swelling, or any muscle pain. ENDOCRINE: Denies any polyuria or polydipsia. The rest of the 14-point review of systems is negative. PHYSICAL EXAMINATION: GENERAL: The patient is alert and oriented x3, not in any acute distress. obese HEENT: Pupils are round and equally reacting to light. EOMI. No scleral icterus. No conjunctival pallor. Normocephalic, atraumatic. No pharyngeal erythema. No thyromegaly. CARDIOVASCULAR: S1 and S2 present. No murmurs, rubs, or gallops. PULMONARY: Chest is clear to auscultation, no wheezing or crackles. ABDOMEN: Soft, nontender, nondistended, normoactive bowel sounds. No palpable organomegaly. MUSCULOSKELETAL: Deferred to orthopedic surgery EXTREMITIES: No cyanosis, clubbing, or pedal edema. NEUROLOGICAL: Gross neurological examination did not reveal any focal deficits. SKIN: No rashes. Assessment and plan -Open reduction and and internal fixation and intramedullary nailing: Pain management as per primary service patient is on Eliquis for DVT prophylaxis Hypogastrics. 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 x 2, RT SHOULDE ATHROPLASTY,back-rods and screws L1-L5 Past Anesthesia/Blood Transfusion Reactions: Previous Problems w/ Anesthesia, Postoperative Nausea & Vomiting (PONV) Additional Past Anesthesia/Blood Transfusion Reaction / Comment(s): BP low after one of surg. CLAUSTERPHOBIA Past Psychological History: Anxiety, Depression Smoking Status: Former smoker Past Alcohol Use History: Rare Additional Past Alcohol Use History / Comment(s): quit smoking 1990, smoked for 20 yrs-< 1 PPD Past Drug Use History: None Reported - Past Family History Mother Family Medical History: Coronary Artery Disease (CAD) Additional Family Medical History / Comment(s): CABG Father Family Medical History: Myocardial Infarction (MO) Medications and Allergies Home Medications Medication Instructions Recorded Confirmed Type Amitriptyline HCl [Elavil] 25 mg PO W/SUPPER 05/12/14 09/11/21 History Aspirin 325 mg PO W/SUPPER 05/12/14 09/11/21 History Cetirizine HCl [Zyrtec] 10 mg PO DAILY 05/12/14 09/11/21 History Cholecalciferol [Vitamin D3] 2,000 unit PO DAILY 05/12/14 09/11/21 History Furosemide [Lasix] 20 mg PO DAILY 05/12/14 09/11/21 History L.acidoph/B.long/L.plant/B.lac 1 cap PO DAILY 05/12/14 09/11/21 History [Probiotic Acidophilus Beads] Levothyroxine Sodium [Synthroid] 125 mcg PO QAM 05/12/14 09/11/21 History Potassium Chloride [Klor-Con 10] 10 meq PO BID 05/12/14 09/11/21 History allopurinoL [Zyloprim] 300 mg PO DAILY 05/12/14 09/11/21 History busPIRone HCl [Buspar] 10 mg PO DAILY PRN 05/12/14 09/11/21 History lisinopriL [Zestril] 20 mg PO HS 05/12/14 09/11/21 History tiZANidine [Zanaflex] 2 mg PO HS 05/13/14 09/11/21 History Selenium 200 mcg PO W/SUPPER 02/09/18 09/11/21 History Zaleplon [Sonata] 10 mg PO HS 02/09/18 09/11/21 History Acetaminophen [Tylenol Extra 1,000 mg PO DIRECTED PRN 08/03/21 09/11/21 History Strength] Pravastatin Sodium [Pravachol] 40 mg PO HS 08/03/21 09/11/21 History Apixaban [Eliquis] 2.5 mg PO BID 35 Days #70 tab 08/07/21 09/11/21 Rx HYDROcodone/APAP 7.5-325MG [[place] 1 - 2 tab PO Q6H PRN #32 tab 08/07/21 09/11/21 Rx 7.5-325] Ondansetron Odt [Zofran Odt] 1 tab PO Q8HR PRN #10 tab 08/07/21 09/11/21 Rx Sennosides [Senokot] 2 tab PO DAILY PRN #60 tablet 08/07/21 09/11/21 Rx Apixaban [Eliquis] 2.5 mg PO BID 35 Days #70 tab 09/11/21 Rx Cyclobenzaprine [Flexeril] 10 mg PO TID 09/11/21 09/11/21 History HYDROcodone/APAP 7.5-325MG [[place] 1 - 2 tab PO Q6H PRN #32 tab 09/11/21 Rx 7.5-325] Ibuprofen 200 mg PO Q8H 09/11/21 09/11/21 History Ondansetron Odt [Zofran Odt] 1 tab PO Q8HR PRN #10 tab 09/11/21 Rx Red Yeast Rice 500 mg PO ONCE 09/11/21 09/11/21 History Sennosides [Senokot] 2 tab PO DAILY PRN #60 tablet 09/11/21 Rx Turmeric Root Extract [Turmeric] 500 mg PO ONCE 09/11/21 09/11/21 History Ubidecarenone [Co Q-10] 400 mg PO ONCE 09/11/21 09/11/21 History Allergies Allergy/AdvReac Type Severity Reaction Status Date / Time codeine Allergy Abdominal Verified 09/11/21 15:11 Pain Neuromuscular Blockers, Allergy Rash/Hives Verified 09/11/21 15:11 Steroidal [Steroidal Neuromuscular Blockers] Penicillins Allergy Abdominal Verified 09/11/21 15:11 Pain propoxyphene napsylate Allergy ache all Verified 09/11/21 15:11 [From Darvocet-N] over-flu like symptoms Sulfa (Sulfonamide Allergy rash, ache Verified 09/11/21 15:11 Antibiotics) all over ciprofloxacin [From Cipro] AdvReac Nausea & Verified 09/11/21 15:11 Vomiting ciprofloxacin HCl AdvReac Nausea & Verified 09/11/21 15:11 [From Cipro] Vomiting levofloxacin [From Levaquin] AdvReac Vomiting Verified 09/11/21 15:11 STEROIDS Allergy Rash/Hives Uncoded 09/11/21 15:11 Physical Exam Vitals: Vital Signs Temp Pulse Pulse Resp BP Pulse Ox 09/12/21 08:18 97.6 F 100 16 90/57 98 09/12/21 00:34 97.5 F L 102 H 15 108/58 97 09/11/21 22:25 99 112/78 09/11/21 22:10 99 110/75 09/11/21 21:55 94 110/77 09/11/21 21:40 98 123/88 09/11/21 21:25 97.4 F L 95 97/64 09/11/21 21:10 85 15 112/66 100 09/11/21 20:16 97 16 134/68 99 09/11/21 20:01 97 16 136/73 99 09/11/21 19:47 92 16 142/95 99 09/11/21 19:31 86 16 113/58 99 09/11/21 19:16 69 16 113/55 99 09/11/21 19:01 92 16 127/59 99 09/11/21 18:45 79 16 108/58 99 09/11/21 18:38 96.5 F L 68 13 117/58 99 09/11/21 13:50 98 F 80 17 139/60 97 Intake and Output 09/11/21 09/12/21 09/12/21 22:59 06:59 14:59 Intake Total 1051 Output Total 400 Balance 651 Intake: IV 1051 Output: Estimated Blood Loss 400 Other: Voiding Method Bedside Commode # Voids 1 Weight 92.079 kg Results CBC & Chem 7: 09/12/21 05:52 09/11/21 14:14 Labs: Abnormal Lab Results - Last 24 Hours (Table) 09/12/21 Range/Units 05:52 RBC 3.33 L (4.10-5.20) X 10*6/uL Hgb 10.2 L (12.0-15.0) g/dL Hct 33.6 L (37.2-46.3) % MCV 100.9 H (80.0-97.0) fL MCHC 30.4 L (32.0-37.0) g/dL RDW 14.8 H (11.5-14.5) % Eosinophils # 0 L (0.04-0.35) X 10*3/uL Thrombosis Risk Factor Assmnt - Choose All That Apply Any of the Below Risk Factors Present?: Yes Each Factor Represents 1 point: Obesity (BMI >25) Each Risk Factor Represents 2 Points: Age 61-74 years, Major surgery Each Risk Factor Represents 5 Points: Elective major lower extremity arthoplasty Thrombosis Risk Factor Assessment Total Risk Factor Score: 10 Thrombosis Risk Factor Assessment Level: High Risk
[2021-09-12] MEDS: AMITRIPTYLINE HCL 25 MG TAB PO SCH (15:53)
[2021-09-12] MEDS ORDERED: SELENIUM 200 MCG PO SCH (17:30)
[2021-09-12] MEDS: SENNOSIDES-DOCUSATE SODIUM 1 EACH TAB PO SCH (20:23)
[2021-09-12] MEDS: TEMAZEPAM 15 MG CAP PO SCH (20:23)
[2021-09-12] MEDS: PRAVASTATIN SODIUM 40 MG TAB PO SCH (20:23)
[2021-09-13] MEDS: HYDROmorphone 0.5 MG/0.5 ML SYRINGE IVP PRN ×2 (02:36→08:35)
[2021-09-13] MEDS: LEVOTHYROXINE 125 MCG TAB PO SCH (06:06)
[2021-09-13] MEDS: HYDROcodone/APAP 7.5-325MG 1 EACH TAB PO PRN ×3 (06:08→21:05)
[2021-09-13] MEDS: LACTOBACILLUS ACIDOPH & BULGAR 1 EACH PACKET PO SCH (07:50)
[2021-09-13] MEDS: APIXABAN 2.5 MG TABLET PO SCH ×2 (07:50→20:59)
[2021-09-13] MEDS: allopurinoL 300 MG TAB PO SCH (07:50)
[2021-09-13] MEDS: CHOLECALCIFEROL 25 MCG (1000 IU) TABLET PO SCH (07:51)
[2021-09-13] MEDS: LORATADINE 10 MG TAB PO SCH (07:52)
--- NOTE | 2021-09-13 10:56 | P.PN ---
Subjective Patient is a 70-year-old female admitted for open reduction and internal fixation of the periprosthetic fracture. Patient is still in a lot of pain because of which is not being discharged today. Patient is on Eliquis for DVT prophylaxis. Patient does have history of insomnia. Patient denied any fever chills nausea dysuria. 09/13/2021 Patient's pain is better no overnight events, passing gas. Constitutional: Denied any fatigue denied any fever. Cardio vascular: denied any chest pain, palpitations Gastrointestinal denied any nausea vomiting Pulmonary: Denied any shortness of breath cough Neurologic denied any new focal deficits All inpatient medications were reviewed and appropriate changes in these medications as dictated in the interval history and assessment and plan. PHYSICAL EXAMINATION: GENERAL: The patient is alert and oriented x3, not in any acute distress. obese HEENT: Pupils are round and equally reacting to light. EOMI. No scleral icterus. No conjunctival pallor. Normocephalic, atraumatic. No pharyngeal erythema. No thyromegaly. CARDIOVASCULAR: S1 and S2 present. No murmurs, rubs, or gallops. PULMONARY: Chest is clear to auscultation, no wheezing or crackles. ABDOMEN: Soft, nontender, nondistended, normoactive bowel sounds. No palpable organomegaly. MUSCULOSKELETAL: Deferred to orthopedic surgery EXTREMITIES: No cyanosis, clubbing, or pedal edema. NEUROLOGICAL: Gross neurological examination did not reveal any focal deficits. SKIN: No rashes. Assessment and plan -Open reduction and and internal fixation and intramedullary nailing: Pain management as per primary service patient is on Eliquis for DVT prophylaxis Hypogastrics. Reflux disease -Hypertension -Obesity -Hypothyroidism -Chronic insomnia -History of DVT in the past patient is presently on Eliquis for DVT prophylaxis Objective - Vital Signs Vital signs: Vital Signs Temp 98.2 F 09/13/21 08:00 Pulse 105 H 09/13/21 08:00 Resp 16 09/13/21 08:00 BP 99/62 09/13/21 08:00 Pulse Ox 92 L 09/13/21 08:00 Intake & Output 09/12/21 09/13/21 09/13/21 18:59 06:59 18:59 Intake Total 354 1000 236 Balance 354 1000 236 Intake: Intake, IV Titration 700 Amount Sodium Chloride 0.9% 1, 700 000 ml @ 70 mls/hr IV . [id number] [facility] Rx#:[id number] Oral 354 300 236 Other: Voiding Method Bedside Commode # Voids 1 2 - Labs CBC & Chem 7: 09/12/21 05:52 09/11/21 14:14
--- NOTE | 2021-09-13 11:18 | P.PN ---
Subjective Progress Note Date: 09/13/21 This is a 70-year-old female who is status post revision left total hip arthroplasty and ORIF left periprosthetic femur fracture. This is postoperative day #2 and patient is seen and evaluated at bedside today. Patient states that her pain is well controlled and she denies any new complaints today. Objective - Vital Signs Vital signs: Vital Signs Temp 98.2 F 09/13/21 08:00 Pulse 105 H 09/13/21 08:00 Resp 16 09/13/21 08:00 BP 99/62 09/13/21 08:00 Pulse Ox 92 L 09/13/21 08:00 Intake & Output 09/12/21 09/13/21 09/13/21 18:59 06:59 18:59 Intake Total 354 1000 236 Balance 354 1000 236 Intake: Intake, IV Titration 700 Amount Sodium Chloride 0.9% 1, 700 000 ml @ 70 mls/hr IV . [id number] [facility] Rx#:[id number] Oral 354 300 236 Other: Voiding Method Bedside Commode # Voids 1 2 - Exam Vital signs are stable. Patient is in no acute distress and is alert and oriented 3. Calf is soft and nontender to palpation. Dressing is clean, dry, and intact. Anterior hip incision is healing. Patient has full foot and ankle motion without pain or difficulty. Sensation intact. Neurovascular status and circulatory status are intact. - Labs CBC & Chem 7: 09/12/21 05:52 09/11/21 14:14 Assessment and Plan (1) Periprosthetic fracture of hip Current Visit: Yes Status: Acute Code(s): M97.8XXA - PERIPROSTH FRACTURE AROUND OTHER INTERNAL PROSTH JOINT, INIT; Z96.649 - PRESENCE OF UNSPECIFIED ARTIFICIAL HIP JOINT SNOMED Code(s): 202774907 (2) Status post revision of total hip replacement Current Visit: Yes Status: Acute Code(s): Z96.649 - PRESENCE OF UNSPECIFIED ARTIFICIAL HIP JOINT SNOMED Code(s): 906761355 Plan: 1. 50% weightbearing to the left lower extremity. 2. Dressing to stay intact for 10 days. Patient is instructed to let her anterior hip incision air out to keep it as clean and dry as possible. 3. Recommend physical therapy for mobilization. 4. Continue routine postoperative care and pain control. 5. Planning for discharge home with home care tomorrow.
[2021-09-13] MEDS: SODIUM CHLORIDE 0.9% 1,000 ML IV SCH (11:30)
[2021-09-13 14:36] LABS: Appearance,Urine Clear (Clear); Bilirubin,Urine Negative (Negative); Blood,Urine Negative (Negative); Color,Urine Light Yellow; Glucose,Urine (UA) Negative (Negative); Ketones,Urine Negative (Negative); Leukocyte Esterase,Urine Trace (Negative); Mucus,Urine Rare /hpf; Nitrite,Urine Negative (Negative); PH, Urine 5.5 (5.0-8.0); Protein,Urine Negative (Negative); RBC,Urine <1 /hpf (0-5); Squamous Epithelial Cell,Urine <1 /hpf (0-4); Urobilinogen,Urine <2.0 mg/dL (<2.0); WBC,Urine 5 /hpf (0-5)
[2021-09-13] MEDS: AMITRIPTYLINE HCL 25 MG TAB PO SCH (17:52)
[2021-09-13] MEDS: SENNOSIDES-DOCUSATE SODIUM 1 EACH TAB PO SCH (20:59)
[2021-09-13] MEDS: TEMAZEPAM 15 MG CAP PO SCH (20:59)
[2021-09-13] MEDS: PRAVASTATIN SODIUM 40 MG TAB PO SCH (20:59)
[2021-09-14] MEDS: SODIUM CHLORIDE 0.9% 1,000 ML IV SCH (00:59)
[2021-09-14] MEDS: HYDROcodone/APAP 7.5-325MG 1 EACH TAB PO PRN ×2 (04:15→08:40)
[2021-09-14] MEDS: LEVOTHYROXINE 125 MCG TAB PO SCH (05:45)
[2021-09-14] MEDS: LORATADINE 10 MG TAB PO SCH (08:40)
[2021-09-14] MEDS: APIXABAN 2.5 MG TABLET PO SCH (08:40)
[2021-09-14] MEDS: allopurinoL 300 MG TAB PO SCH (08:40)
[2021-09-14] MEDS: LACTOBACILLUS ACIDOPH & BULGAR 1 EACH PACKET PO SCH (08:40)
[2021-09-14] MEDS: CHOLECALCIFEROL 25 MCG (1000 IU) TABLET PO SCH (08:40)
[2021-09-14 09:09] VITALS: BP 124/70; PULSE 99; RESP 16; TEMP 98.2
[2021-09-14 09:23] LABS: Basophils # (A) 0.05 X 10*3/uL (0.00-0.10); Basophils % (A) 0.6 %; Eosinophils # (A) 0.35 X 10*3/uL (0.04-0.35); Eosinophils % (A) 4.2 %; HCT 26.7 % (37.2-46.3); HGB 8.3 g/dL (12.0-15.0); Lymphocytes # (A) 1.74 X 10*3/uL (0.90-5.00); Lymphocytes % (A) 20.8 %; MCH 30.7 pg (27.0-32.0); MCHC 31.1 g/dL (32.0-37.0); MCV 98.9 fL (80.0-97.0); Mean Platelet Volume 10.1 fL (9.5-12.2); Monocytes # (A) 0.98 X 10*3/uL (0.20-1.00); Monocytes % (A) 11.7 %; Neutrophils # (A) 5.23 X 10*3/uL (1.80-7.70); Neutrophils % (A) 62.3 %; Platelet Count 223 X 10*3/uL (140-440); RDW 15.2 % (11.5-14.5); WBC 8.38 X 10*3/uL (4.50-10.00)
--- NOTE | 2021-09-14 10:01 | P.DS ---
Providers Date of admission: 09/13/21 10:55 Expected date of discharge: 09/14/21 Attending physician: Edgar Ware Consults: 09/11/21 21:15 Consult Physician Routine Consulting Provider: Alonso Ramirez Consult Reason/Comments: medical management Do you want consulting provider notified?: Yes, Notify in am Primary care physician: Vaughn Hazel - Discharge Diagnosis(es) (1) Periprosthetic fracture of hip Current Visit: Yes Status: Acute (2) Status post revision of total hip replacement Current Visit: Yes Status: Acute Hospital Course: This is a 70-year-old female who is admitted for periprosthetic femur fracture of her left hip. Patient is status post left total hip arthroplasty on 08/07/2021. The patient presented for evaluation as an outpatient and a CT scan revealed periprosthetic fracture of her left hip. After discussion and consideration patient elects to proceed with revision left total hip arthroplasty with open reduction and internal fixation of periprosthetic femur fracture. The patient is seen preoperatively by Dr. Ware. Patient is admitted to [facility] on 09/11/2021 for revision left total hip arthroplasty with open reduction and internal fixation of periprosthetic femur fracture. The procedure is performed without complication or sequelae. The patient is doing well postoperatively. Labs and vital signs are stable on day of discharge. On day of discharge patient's hip incision is healing well. There is minimal erythema. There is no drainage noted at this time. There is minimal soft tissue swelling to the hip and thigh. Patient has full foot and ankle motion without difficulty or pain. Calf is soft and nontender to palpation. Neurovascular status to the left lower extremity is intact. Patient is discharged home in good condition. Please see med rec for accurate list of home medications. Plan - Discharge Summary Discharge Rx Participant: Yes New Discharge Prescriptions: New Sennosides [Senokot] 2 tab PO DAILY PRN #60 tablet PRN Reason: Constipation Ondansetron Odt [Zofran Odt] 1 tab PO Q8HR PRN #10 tab PRN Reason: Nausea Apixaban [Eliquis] 2.5 mg PO BID 35 Days #70 tab HYDROcodone/APAP 7.5-325MG [[place] 7.5-325] 1 - 2 tab PO Q6H PRN #32 tab PRN Reason: Pain No Action busPIRone HCl [Buspar] 10 mg PO DAILY PRN PRN Reason: Anxiety Cholecalciferol [Vitamin D3] 2,000 unit PO DAILY lisinopriL [Zestril] 20 mg PO HS Amitriptyline HCl [Elavil] 25 mg PO W/SUPPER Levothyroxine Sodium [Synthroid] 125 mcg PO QAM Furosemide [Lasix] 20 mg PO DAILY Aspirin 325 mg PO W/SUPPER allopurinoL [Zyloprim] 300 mg PO DAILY Cetirizine HCl [Zyrtec] 10 mg PO DAILY Potassium Chloride [Klor-Con 10] 10 meq PO BID L.acidoph/B.long/L.plant/B.lac [Probiotic Acidophilus Beads] 1 cap PO DAILY tiZANidine [Zanaflex] 2 mg PO HS Selenium 200 mcg PO W/SUPPER Zaleplon [Sonata] 10 mg PO HS Acetaminophen [Tylenol Extra Strength] 1,000 mg PO DIRECTED PRN PRN Reason: Pain Sennosides [Senokot] 2 tab PO DAILY PRN #60 tablet PRN Reason: Constipation Ondansetron Odt [Zofran Odt] 1 tab PO Q8HR PRN #10 tab PRN Reason: Nausea Apixaban [Eliquis] 2.5 mg PO BID 35 Days #70 tab Cyclobenzaprine [Flexeril] 10 mg PO TID Ubidecarenone [Co Q-10] 400 mg PO ONCE Turmeric Root Extract [Turmeric] 500 mg PO ONCE Pravastatin Sodium [Pravachol] 40 mg PO HS HYDROcodone/APAP 7.5-325MG [[place] 7.5-325] 1 - 2 tab PO Q6H PRN #32 tab PRN Reason: Pain Ibuprofen 200 mg PO Q8H Red Yeast Rice 500 mg PO ONCE Discharge Medication List Amitriptyline HCl [Elavil] 25 mg PO W/SUPPER 05/12/14 [History] Aspirin 325 mg PO W/SUPPER 05/12/14 [History] Cetirizine HCl [Zyrtec] 10 mg PO DAILY 05/12/14 [History] Cholecalciferol [Vitamin D3] 2,000 unit PO DAILY 05/12/14 [History] Furosemide [Lasix] 20 mg PO DAILY 08/21/14 [History] L.acidoph/B.long/L.plant/B.lac [Probiotic Acidophilus Beads] 1 cap PO DAILY 05/12/14 [History] Levothyroxine Sodium [Synthroid] 125 mcg PO QAM 05/12/14 [History] Potassium Chloride [Klor-Con 10] 10 meq PO BID 05/12/14 [History] allopurinoL [Zyloprim] 300 mg PO DAILY 05/12/14 [History] busPIRone HCl [Buspar] 10 mg PO DAILY PRN 05/12/14 [History] lisinopriL [Zestril] 20 mg PO HS 05/12/14 [History] tiZANidine [Zanaflex] 2 mg PO HS 05/13/14 [History] Selenium 200 mcg PO W/SUPPER 02/09/18 [History] Zaleplon [Sonata] 10 mg PO HS 02/09/18 [History] Acetaminophen [Tylenol Extra Strength] 1,000 mg PO DIRECTED PRN 08/03/21 [History] Pravastatin Sodium [Pravachol] 40 mg PO HS 08/03/21 [History] Apixaban [Eliquis] 2.5 mg PO BID 35 Days #70 tab 08/07/21 [Rx] HYDROcodone/APAP 7.5-325MG [[place] 7.5-325] 1 - 2 tab PO Q6H PRN #32 tab 08/07/21 [Rx] Ondansetron Odt [Zofran Odt] 1 tab PO Q8HR PRN #10 tab 08/07/21 [Rx] Sennosides [Senokot] 2 tab PO DAILY PRN #60 tablet 08/07/21 [Rx] Apixaban [Eliquis] 2.5 mg PO BID 35 Days #70 tab 09/11/21 [Rx] Cyclobenzaprine [Flexeril] 10 mg PO TID 09/11/21 [History] Ibuprofen 200 mg PO Q8H 09/11/21 [History] Ondansetron Odt [Zofran Odt] 1 tab PO Q8HR PRN #10 tab 09/11/21 [Rx] Red Yeast Rice 500 mg PO ONCE 09/11/21 [History] Sennosides [Senokot] 2 tab PO DAILY PRN #60 tablet 09/11/21 [Rx] Turmeric Root Extract [Turmeric] 500 mg PO ONCE 09/11/21 [History] Ubidecarenone [Co Q-10] 400 mg PO ONCE 09/11/21 [History] HYDROcodone/APAP 7.5-325MG [[place] 7.5-325] 1 - 2 tab PO Q6H PRN #32 tab 09/13/21 [Rx] Follow up Appointment(s)/Referral(s): Edgar Ware DO [Doctor of Osteopathic Medicine] - 2 Weeks Activity/Diet/Wound Care/Special Instructions: 50% weightbearing left lower extremity. Continue dislocation precautions with abductor pillow for 6 weeks. Leave dressing intact. Dressing may be removed by home care nurse or by patient in 7 days. Then change dressing twice daily until follow up. May shower with initial dressing intact and after removal. If dressing become saturated, please remove. Keep anterior hip incision clean and as dry as possible, cover in the shower. Please take Eliquis as prescribed to help prevent blood clots. Recommend use of compression stockings daily until follow up to help prevent swelling and blood clots. May remove at night before sleeping. Please follow-up with [facility] in 2 weeks and call with any questions or concerns, . Patient requires a bedside commode because she is room confined due to left femur fracture. Discharge Disposition: HOME WITH HOME HEALTH SERVICES
== END 2021-09-14 11:58 | disposition home health service (06) ==
LOC: OR 12:57 → 4SSUR 20:14 → OR 09-13 10:47 → 4SSUR 09-13 10:55
PROVIDERS: ADMIT Orthopaedic Surgery; ATTEND Orthopaedic Surgery
DX: M97.02XA Periprosthetic fracture around internal prosthetic left hip joint, initial encounter (principal); I10 Essential (primary) hypertension; K21.9 Gastro-esophageal reflux disease without esophagitis; E03.9 Hypothyroidism, unspecified; F51.04 Psychophysiologic insomnia; M79.7 Fibromyalgia; M06.9 Rheumatoid arthritis, unspecified; M19.90 Unspecified osteoarthritis, unspecified site; K57.90 Diverticulosis of intestine, part unspecified, without perforation or abscess without bleeding; M10.9 Gout, unspecified; I25.10 Atherosclerotic heart disease of native coronary artery without angina pectoris; F32.A Depression, unspecified; F41.9 Anxiety disorder, unspecified; E66.9 Obesity, unspecified; Z68.37 Body mass index [BMI] 37.0-37.9, adult; H91.90 Unspecified hearing loss, unspecified ear; F40.240 Claustrophobia; H26.9 Unspecified cataract; Z20.822 Contact with and (suspected) exposure to COVID-19; Z79.01 Long term (current) use of anticoagulants; Z79.82 Long term (current) use of aspirin; Z79.890 Hormone replacement therapy; Z79.899 Other long term (current) drug therapy; Z88.6 Allergy status to analgesic agent; Z88.1 Allergy status to other antibiotic agents; Z88.5 Allergy status to narcotic agent; Z88.0 Allergy status to penicillin; Z88.2 Allergy status to sulfonamides; Z88.8 Allergy status to other drugs, medicaments and biological substances; Z86.718 Personal history of other venous thrombosis and embolism; Z87.442 Personal history of urinary calculi; Z98.51 Tubal ligation status; Z96.641 Presence of right artificial hip joint; Z87.891 Personal history of nicotine dependence; Z97.3 Presence of spectacles and contact lenses; Z90.49 Acquired absence of other specified parts of digestive tract; Z98.1 Arthrodesis status; Z96.612 Presence of left artificial shoulder joint; Z96.611 Presence of right artificial shoulder joint; Z98.890 Other specified postprocedural states; Z82.49 Family history of ischemic heart disease and other diseases of the circulatory system; Z83.3 Family history of diabetes mellitus
CPT/HCPCS: 27134; 27236; 97530; 97162; 97166; 86891; 86900; 86901; 80053; 85025 ×3; 85610; 85730; 86850; 81001; 87635; 73501; G0378 ×2; P9022; C1776; J2250; J1644; J2710; J0690 ×2; J2405; J2001; J3010; J1170 ×4; J0330; J2704

== ENCOUNTER → 2021-10-23 | Outpatient (CLI) | payer MEDICARE ==
--- NOTE | 2021-10-23 14:28 | BD ---
EXAMINATION TYPE: Axial Bone Density DATE OF EXAM: 10/23/2021 COMPARISON: DEXA bone scan 2017 CLINICAL HISTORY: Postmenopausal female Height: 5 FT 2 IN Weight: 200 FRAX RISK QUESTIONS: Alcohol (3 or more units per day): NO Family History (Parent hip fracture): NO Glucocorticoids (More than 3mos): NO (Ex: prednisone, prednisolone, methylprednisolone, dexamethasone, and hydrocortisone). History of Fracture in Adulthood: YES Secondary Osteoporosis: 1. Type 1 Diabetes: NO 2. Hyperthyroidism: 1982 IODINE TREATMENT 3. Menopause before 45: YES 4. Malnutrition: NO 5. Chronic liver disease: NO Rheumatoid Arthritis: YES Current Tobacco Use: NO RISK FACTORS HISTORY OF: Surgery to Spine/Hip(right/left)/Wrist (right/left): RT 1994 REVISION 2005 LEFT JUL 2021 AND AUG 2021 , SPINE SURG 2013 Family History of Osteoporosis: YES Active: NO Diet low in dairy products/other sources of calcium: NO Postmenopausal woman: YES Take estrogen and/or progesterone medications: TOOK HRT FOR [employer] 10 YEARS Lost more than 2 inches in height since high school: NO Frequent falls: NO Poor Health: GOOD Hyperparathyroidism: NO Adrenal Insufficiency: NO MEDICATIONS: Thyroid Medications: YES Which medication: LEVOTHYROXINE How Long: SINCE 1982 Additional Medications: VIT D , LEVOTHYROXINE, LISINOPRIL, AMITRIPTYLINE, ZALEPLON, MUSCLE RELAXER, A LL ADE NAL, POTASSIUM Additional History: DOUG HIP REPLACEMENT SPINE SURG DOUG SHOULDER REPLACEMENTS EXAM MEASUREMENTS: Bone mineral density about the R Wrist (g/cm2): 0.585 T Score values are as follows: -----Dist. R+U: -0.4 -----Prox. R+U: -2.1 -----Radius total: -1.6 FIRST TIME FOR WRIST IMPRESSION: Osteopenia (T Score between -2.5 and -1). There is slightly increased risk of fracture and the patient may be considered for treatment. Re-Screen 2-5 years. NOTE: T-SCORE=SD OF THE YOUNG ADULT MEAN.
--- NOTE | 2021-10-24 12:12 | MM ---
Reason for exam: screening (asymptomatic). Last mammogram was performed 1 year and 5 months ago. History: Patient is postmenopausal and has history of other cancer at age 32. Physical Findings: A clinical breast exam by your physician is recommended on an annual basis and results should be correlated with mammographic findings. MG 3D Screening Mammo W/Cad Bilateral CC, MLO, and XCCL view(s) were taken. Prior study comparison: May 26, 2020, bilateral MG 3d screening mammo w/cad. November 03, 2017, bilateral MG 3d screening mammo w/cad. There are scattered fibroglandular densities. No significant changes when compared with prior studies. ASSESSMENT: Negative, BI-RAD 1 RECOMMENDATION: Routine screening mammogram of both breasts in 1 year.
== END | disposition home or self-care (01) ==
LOC: RADMAMWWP 11:32
PROVIDERS: ATTEND Family Medicine
DX: Z12.31 Encounter for screening mammogram for malignant neoplasm of breast (principal); M85.89 Other specified disorders of bone density and structure, multiple sites; Z78.0 Asymptomatic menopausal state
CPT/HCPCS: 77063; 77067; 77080

== ENCOUNTER → 2021-11-19 | Outpatient (CLI) | payer MEDICARE ==
[2021-11-19 12:52] LABS: Appearance,Urine Clear (Clear); Bilirubin,Urine Negative (Negative); Blood,Urine Negative (Negative); Color,Urine Colorless; Glucose,Urine (UA) Negative (Negative); Ketones,Urine Negative (Negative); Leukocyte Esterase,Urine Moderate (Negative); Nitrite,Urine Negative (Negative); Protein,Urine Negative (Negative); RBC,Urine <1 /hpf (0-5); Specific Gravity,Urine 1.005 (1.001-1.035); Squamous Epithelial Cell,Urine <1 /hpf (0-4); Urobilinogen,Urine <2.0 mg/dL (<2.0); WBC,Urine 8 /hpf (0-5)
[2021-11-19 12:53] LABS: Creatinine,Urine Random 14.8 mg/dL; Protein/Creatinine Ratio,Urine 0.608
[2021-11-19 18:20] LABS: Basophils # (A) 0.12 X 10*3/uL (0.00-0.10); Basophils % (A) 1.6 %; Eosinophils % (A) 3.9 %; HCT 43.3 % (37.2-46.3); HGB 12.9 g/dL (12.0-15.0); Immature Grans, Automated 0.3 %; Lymphocytes # (A) 2.53 X 10*3/uL (0.90-5.00); Lymphocytes % (A) 32.8 %; MCHC 29.8 g/dL (32.0-37.0); MCV 94.1 fL (80.0-97.0); Mean Platelet Volume 10.4 fL (9.5-12.2); Monocytes # (A) 0.66 X 10*3/uL (0.20-1.00); Monocytes % (A) 8.6 %; NRBC Per 100 WBC 0 /100 WBCS (0.0-0.0); Neutrophils # (A) 4.08 X 10*3/uL (1.80-7.70); Neutrophils % (A) 52.8 %; Platelet Count 334 X 10*3/uL (140-440); RDW 15.6 % (11.5-14.5); WBC 7.71 X 10*3/uL (4.50-10.00)
[2021-11-19 19:01] LABS: Albumin 4.9 g/dL (3.8-4.9); Ferritin 45.9 ng/mL (10.0-291.0)
[2021-11-19 20:18] LABS: % Iron Saturation 14.87 (12.00-45.00); African American GFR (CKD) 69.6 (60.0-200.0); Anion Gap 15.7 mmol/L (10.00-18.00); BUN/Creat Ratio 22.82 Ratio (12.00-20.00); Calcium 10.5 mg/dL (8.7-10.3); Carbon Dioxide 21.8 mmol/L (20.0-27.5); Magnesium 2.1 mg/dL (1.5-2.4); Phosphorus 3.5 mg/dL (2.4-5.1); Potassium 4.4 mmol/L (3.5-5.5); Uric Acid 4.6 mg/dL (2.9-7.7)
== END | disposition home or self-care (01) ==
LOC: LABWHC1 10:10
PROVIDERS: ATTEND Nurse Practitioner Family
DX: N25.81 Secondary hyperparathyroidism of renal origin (principal); E55.9 Vitamin D deficiency, unspecified; M10.9 Gout, unspecified; N39.0 Urinary tract infection, site not specified; D64.9 Anemia, unspecified; R80.9 Proteinuria, unspecified; N18.30 Chronic kidney disease, stage 3 unspecified
CPT/HCPCS: 36415; 80048; 81001; 82040; 82306; 82570; 82728; 83540; 83550; 83735; 83970; 84100; 84156; 84550; 85025

== ENCOUNTER 2022-08-07 16:36 | Emergency (ER) | payer MEDICARE ==
[2022-08-07 18:03] LABS: Basophils # (A) 0.1 k/uL (0-0.2); Basophils % (A) 1 %; Eosinophils # (A) 0.2 k/uL (0-0.7); Eosinophils % (A) 3 %; HCT 42.4 % (34.0-46.0); HGB 14.3 gm/dL (11.4-16.0); Lymphocytes # (A) 1.9 k/uL (1.0-4.8); Lymphocytes % (A) 20 %; MCH 31.5 pg (25.0-35.0); MCHC 33.8 g/dL (31.0-37.0); MCV 93.1 fL (80.0-100.0); Monocytes # (A) 0.5 k/uL (0-1.0); Monocytes % (A) 5 %; Neutrophils # (A) 6.5 k/uL (1.3-7.7); Neutrophils % (A) 69 %; Platelet Count 261 k/uL (150-450); RBC 4.56 m/uL (3.80-5.40); RDW 14.2 % (11.5-15.5); WBC 9.4 k/uL (3.8-10.6)
[2022-08-07] MEDS: HYDROmorphone 0.5 MG/0.5 ML SYRINGE IVP PRN ×2 (18:08→20:34)
[2022-08-07 18:12] LABS: Calcium 9.7 mg/dL (8.4-10.2); Potassium 4.3 mmol/L (3.5-5.1)
[2022-08-07 18:27] LABS: INR 0.9 (<1.2); Prothrombin Time 9.8 sec (9.0-12.0)
[2022-08-07 18:28] LABS: Partial Thromboplastin Time 21.9 sec (22.0-30.0)
--- NOTE | 2022-08-07 19:40 | CT ---
EXAMINATION TYPE: CT brain cspine wo con, CT facial bones wo con CT DLP: 1461.1 mGycm, Automated exposure control for dose reduction was used. DATE OF EXAM: 08/07/2022 7:08 PM COMPARISON: None. CLINICAL INDICATION:Female, 71 years old with history of head trauma, moderate; FALL, LEFT EYE AND FA CIAL SWELLING TECHNIQUE: Brain: Multiple axial CT images of the brain were obtained without IV contrast. Cspine: Axial CT images from the skull base to the inferior aspect of T2 we obtained without intraven ous contrast. Coronal and sagittal reformatted images were also reviewed. Facial: Axial images of the facial structures with sagittal and coronal reformats. FINDINGS: Brain: Extra-axial spaces: Density blood products are layering within the sylvian fissure on the left. Ventricular system: Within normal limits Cerebral parenchyma: No acute intraparenchymal hemorrhage or mass effect. The polanco-white junction is well differentiated. Cerebellum: Unremarkable. Mass effect: No evidence of midline shift. Intracranial vasculature: unremarkable Soft tissues: Normal. Calvarium/osseous structures: No depressed skull fracture. Paranasal sinuses and mastoid air cells: High density blood product in left maxillary sinus. Cervical spine: Fracture: None. Osseous structures: Unremarkable Vertebral alignment: Within normal limits. Spinal canal/Neural Foramina: No evidence of significant spinal canal narrowing. No evidence for sign ificant neural foraminal stenosis. Neck soft tissues: Prevertebral soft tissues are within normal limits. Other: The airway is patent. The lung apices are clear. Facial: Left inferior orbital wall fracture with at least 8 mm displacement inferiorly. The inferior rectus m uscle is in close proximity to this fracture site. Blood products are layering within the left maxill antionette sinus. Additional nondisplaced fracture of the medial left orbital wall. The left globe has a irregular morphology with high density retrobulbar density series 2 image 13. Hi gh density material is also seen within the posterior chamber of the globe. Curvilinear material is s een within the globe best appreciated on sagittal imaging suggestive of retinal detachment. A there is acute fracture of the left nasal bone with mild displacement up to 2 mm. Soft tissue edema involving the left cheek with suspected subcutaneous hematoma measuring 23 x 8 mm. Right antrostomy changes of the maxillary sinus. Findings communicated to Dr. Sami Masters on 08/07/2022 7:[address] Lucio Tlaavera. IMPRESSION: 1. Findings suspicious for left retinal detachment with vitreous hemorrhage. Additionally there is a asymmetric morphology to the left globe suggestive of globe rupture with questionable small retrobul bar hematoma. Ophthalmology consultation is recommended. 2. Left inferior orbital wall fracture with 8 mm displacement and left medial orbital wall fracture without displacement. Associated layering blood products within the maxillary sinus. 3. Subarachnoid hemorrhage layering within the left sylvian fissure. 4. Left nasal bone fracture with minimal displacement. 5. No evidence of cervical spine fracture. 6. Mild multilevel degenerative disc disease.
--- NOTE | 2022-08-07 19:42 | XR ---
EXAMINATION TYPE: XR shoulder complete LT DATE OF EXAM: 08/07/2022 7:13 PM INDICATION: Patient age:Female; 71 years old; Reason for study: fall; COMPARISON: None TECHNIQUE: The left shoulder was examined in AP, internally rotated and scapular Y projections. . FINDINGS: Arthroplasty changes with hardware placement in appropriate position. No evidence of fracture. No evidence of acute osseous pathology, joint dislocation, or soft tissue swelling. The remaining por tions of the visualized chest are unremarkable. IMPRESSION: 1. No acute osseous pathology. 2. Postsurgical changes of left shoulder with hardware in appropriate position.
--- NOTE | 2022-08-07 19:45 | XR ---
EXAMINATION TYPE: XR Hip LT and AP Pelvis DATE OF EXAM: 08/07/2022 7:13 PM INDICATION: Patient age:Female; 71 years old; Reason for study: Fall; PHH. COMPARISON: None. TECHNIQUE: The left hip was examined in the frontal and lateral projections and a AP pelvis. FINDINGS: Bilateral arthroplasty changes of the hips. The right hip is mildly elevated compared to th e left. Hardware appears intact. The lower spine demonstrates fixation changes with hardware intact. No evidence of fracture. IMPRESSION: 1. No acute process. 2. Post surgical changes of the hips and lower spine. Hardware appears intact.
[2022-08-07 20:55] VITALS: BP 138/82; PULSE 68; RESP 16; TEMP 97.9
[2022-08-07] MEDS ORDERED: VANCOMYCIN 1,000 MG in SODIUM CHLORIDE 0.9% 250 ML IVPB STA (21:10)
--- NOTE | 2022-08-07 21:14 | ED ---
General Adult HPI - General Chief complaint: Fall Stated complaint: Fall,Head injury Time Seen by Provider: 08/07/22 17:07 Source: patient, family Mode of arrival: wheelchair Limitations: no limitations - History of Present Illness Initial comments: This is 71-year-old female who presents emergency department after mechanical fall. The patient stated that she was going out of the hair salon when she tripped and fell, landing on the left side of her face. The patient stated that she had pain in the left eye left side of the face and was unable to [place] after this as she has had previous prosthetics of the bilateral hips as well as bilateral shoulders. The patient stated that her left shoulder with source of she could not get up at that time. The patient did call her family and she was picked up and brought to the emergency department. On arrival, the patient had pain in the left side her face with decreased vision in the left eye. The patient had full range of motion of her upper and lower extremities without any numbness or tingling noted. The patient denied any loss of consciousness. The patient did state that she had a left-sided headache as well but does not have any lightheadedness or dizziness currently. - Related Data Home Medications Medication Instructions Recorded Confirmed Amitriptyline HCl [Elavil] 25 mg PO W/SUPPER 05/12/14 09/11/21 Aspirin 325 mg PO W/SUPPER 05/12/14 09/11/21 Cetirizine HCl [Zyrtec] 10 mg PO DAILY 05/12/14 09/11/21 Cholecalciferol [Vitamin D3] 2,000 unit PO DAILY 05/12/14 09/11/21 Furosemide [Lasix] 20 mg PO DAILY 05/12/14 09/11/21 L.acidoph,Plant/B.animal,Long 1 cap PO DAILY 05/12/14 09/11/21 [Probiotic Acidophilus Beads] Levothyroxine Sodium [Synthroid] 125 mcg PO QAM 05/12/14 09/11/21 Potassium Chloride [Klor-Con 10] 10 meq PO BID 05/12/14 09/11/21 allopurinoL [Zyloprim] 300 mg PO DAILY 05/12/14 09/11/21 busPIRone HCl [Buspar] 10 mg PO DAILY PRN 05/12/14 09/11/21 lisinopriL [Zestril] 20 mg PO HS 05/12/14 09/11/21 tiZANidine [Zanaflex] 2 mg PO HS 05/13/14 09/11/21 Selenium 200 mcg PO W/SUPPER 02/09/18 09/11/21 Zaleplon [Sonata] 10 mg PO HS 02/09/18 09/11/21 Acetaminophen [Tylenol Extra 1,000 mg PO DIRECTED PRN 08/03/21 09/11/21 Strength] Pravastatin Sodium [Pravachol] 40 mg PO HS 08/03/21 09/11/21 Cyclobenzaprine [Flexeril] 10 mg PO TID 09/11/21 09/11/21 Ibuprofen 200 mg PO Q8H 09/11/21 09/11/21 Red Yeast Rice 500 mg PO ONCE 09/11/21 09/11/21 Turmeric Root Extract [Turmeric] 500 mg PO ONCE 09/11/21 09/11/21 Ubidecarenone [Co Q-10] 400 mg PO ONCE 09/11/21 09/11/21 Previous Rx's Medication Instructions Recorded Apixaban [Eliquis] 2.5 mg PO BID 35 Days #70 tab 08/07/21 HYDROcodone/APAP 7.5-325MG [[place] 1 - 2 tab PO Q6H PRN #32 tab 08/07/21 7.5-325] Ondansetron Odt [Zofran Odt] 1 tab PO Q8HR PRN #10 tab 08/07/21 Sennosides [Senokot] 2 tab PO DAILY PRN #60 tablet 08/07/21 Apixaban [Eliquis] 2.5 mg PO BID 35 Days #70 tab 09/11/21 Ondansetron Odt [Zofran Odt] 1 tab PO Q8HR PRN #10 tab 09/11/21 Sennosides [Senokot] 2 tab PO DAILY PRN #60 tablet 09/11/21 HYDROcodone/APAP 7.5-325MG [[place] 1 - 2 tab PO Q6H PRN #32 tab 09/13/21 7.5-325] Allergies Allergy/AdvReac Type Severity Reaction Status Date / Time codeine Allergy Abdominal Verified 09/11/21 15:11 Pain Neuromuscular Blockers, Allergy Rash/Hives Verified 09/11/21 15:11 Steroidal [Steroidal Neuromuscular Blockers] Penicillins Allergy Abdominal Verified 09/11/21 15:11 Pain propoxyphene napsylate Allergy ache all Verified 09/11/21 15:11 [From Darvocet-N] over-flu like symptoms Sulfa (Sulfonamide Allergy rash, ache Verified 09/11/21 15:11 Antibiotics) all over ciprofloxacin [From Cipro] AdvReac Nausea & Verified 09/11/21 15:11 Vomiting ciprofloxacin HCl AdvReac Nausea & Verified 09/11/21 15:11 [From Cipro] Vomiting levofloxacin [From Levaquin] AdvReac Vomiting Verified 09/11/21 15:11 STEROIDS Allergy Rash/Hives Uncoded 09/11/21 15:11 Review of Systems ROS Statement: Those systems with pertinent positive or pertinent negative responses have been documented in the HPI. ROS Other: All systems not noted in ROS Statement are negative. Past Medical History Past Medical History: Deep Vein Thrombosis (DVT), Eye Disorder, Fibromyalgia, GERD/Reflux, Hypertension, Osteoarthritis (OA), Rheumatoid Arthritis (RA), Thyroid Disorder Additional Past Medical History / Comment(s): Gato cataracts, hx of kidney stones, past hx of kidney problems due to fdc use of anti inflammatory meds, no problems now, hx DVT in leg, hx of diverticulitis History of Any Multi-Drug Resistant Organisms: None Reported Past Surgical History: Appendectomy, Back Surgery, Joint Replacement, Orthopedic Surgery, Tubal Ligation Additional Past Surgical History / Comment(s): right hip replaced & revision, left total shoulder, left fused ankle, sinus surg. x 2, RT SHOULDE ATHROPLASTY,back-rods and screws L1-L5 Past Anesthesia/Blood Transfusion Reactions: Previous Problems w/ Anesthesia, Postoperative Nausea & Vomiting (PONV) Additional Past Anesthesia/Blood Transfusion Reaction / Comment(s): BP low after one of surg. CLAUSTERPHOBIA Past Psychological History: Anxiety, Depression Smoking Status: Former smoker Past Alcohol Use History: Rare Past Drug Use History: None Reported - Past Family History Mother Family Medical History: Coronary Artery Disease (CAD) Additional Family Medical History / Comment(s): CABG Father Family Medical History: Myocardial Infarction ([place]) General Exam Limitations: no limitations General appearance: alert, in no apparent distress Head exam: Present: other (Contusion noted around the left orbit. There was abrasions noted around the left orbit as well.) Eye exam: Present: other (Right eye normal, without any abrasion or injected s clera present. Left eye proptotic with hemorrhagic chemosis noted. The patient reported no vision noted in the left eye. No visual field testing to be performed left eye is a patient denied any vision noted.) Pupils: Present: normal accommodation ENT exam: Present: normal exam, mucous membranes moist Neck exam: Present: normal inspection, full ROM Respiratory exam: Present: normal lung sounds bilaterally Cardiovascular Exam: Present: regular rate, normal rhythm, normal heart sounds GI/Abdominal exam: Present: soft, normal bowel sounds Extremities exam: Present: normal inspection, full ROM, normal capillary refill Back exam: Present: normal inspection, full ROM Neurological exam: Present: alert, oriented X3 Psychiatric exam: Present: normal affect, normal mood Skin exam: Present: warm, dry Course Vital Signs 08/07/22 08/07/22 08/07/22 16:47 18:16 20:51 Temperature 97.6 F 97.9 F Pulse Rate 92 86 68 Respiratory 18 18 16 Rate Blood Pressure 157/90 133/68 138/82 O2 Sat by Pulse 97 98 97 Oximetry Medical Decision Making - Medical Decision Making The patient was seen and evaluated in the emergency department. Physical exam, the patient was resting in bed without any acute distress. Did have a left- sided headache noted. On physical exam, vital signs were stable and within normal limits. Due to the nature the patient's injuries, CT head, CT maxillofacial as well as x-rays were obtained. X-rays were within normal limits. CT of the had and facial bones showed findings suspicious for a left retinal detachment with vitreous hemorrhage. There was additionally asymmetric morphologies the left globe suggestive of globe rupture with questionable small retrobulbar hematoma. There was a left inferior wall fracture with 8 mm displacement and left medial orbital wall fracture without displacement. There was subarachnoid hemorrhage with layering within the left sylvian fissure. There was also a left nasal bone fracture with minimal displacement. Due to these findings, our classer, Dr. Menjivar, was contacted but stated that this was beyond his scope of practice. He suggested referring to [facility] for a retinal specialist. I did get in contact with [facility] and spoke with the classer, Dr. Fernandes, and she did accept the patient for transfer. She did recommend 1 g of vancomycin as well as an eye shield. She did recommended neurosurgery and trauma surgery consultation as soon as the patient does arrive. Due to the patient's subarachnoid hemorrhage, the patient's head of the bed was raised at 45 and she remained stable and within n ormal limits with normal blood pressures. Dr. Roth also accepted the patient from the emergency room and the patient's family was told this plan. The patient's family had all their questions answered appropriate. The patient was acceptable of this plan and was transferred via EMS in stable condition. - Lab Data Result diagrams: 08/07/22 17:56 08/07/22 17:56 Lab Results 08/07/22 08/07/22 08/07/22 Range/Units 17:56 17:56 17:56 WBC 9.4 (3.8-10.6) k/uL RBC 4.56 (3.80-5.40) m/uL Hgb 14.3 (11.4-16.0) gm/dL Hct 42.4 (34.0-46.0) % MCV 93.1 (80.0-100.0) fL MCH 31.5 (25.0-35.0) pg MCHC 33.8 (31.0-37.0) g/dL RDW 14.2 (11.5-15.5) % Plt Count 261 (150-450) k/uL MPV 8.0 Neutrophils % 69 % Lymphocytes % 20 % Monocytes % 5 % Eosinophils % 3 % Basophils % 1 % Neutrophils # 6.5 (1.3-7.7) k/uL Lymphocytes # 1.9 (1.0-4.8) k/uL Monocytes # 0.5 (0-1.0) k/uL Eosinophils # 0.2 (0-0.7) k/uL Basophils # 0.1 (0-0.2) k/uL PT 9.8 (9.0-12.0) sec INR 0.9 (<1.2) APTT 21.9 L (22.0-30.0) sec Sodium 141 (137-145) mmol/L Potassium 4.3 (3.5-5.1) mmol/L Chloride 105 (98-107) mmol/L Carbon Dioxide 26 (22-30) mmol/L Anion Gap 10 mmol/L BUN 29 H (7-17) mg/dL Creatinine 1.02 (0.52-1.04) mg/dL Est GFR (CKD-EPI)AfAm 65 (>60 ml/min/1.73 sqM) Est GFR (CKD-EPI)NonAf 57 (>60 ml/min/1.73 sqM) Glucose 100 H (74-99) mg/dL Calcium 9.7 (8.4-10.2) mg/dL Critical Care Time Critical Care Time: Yes Total Critical Care Time: 124 Disposition Clinical Impression: Fall, Retinal detachment, Vitreous hemorrhage, Ruptured globe of left eye, Subarachnoid bleed, Retrobulbar hematoma Disposition: OTHER INSTITUTION NOT DEFINED Condition: Stable Is patient prescribed a controlled substance at d/c from ED?: No Referrals: None,Stated [REFERRING] - 1-2 days Time of Disposition: 20:30 - Out of Hospital Transfer - Req. Specs Out of Hospital Transfer - Requested Specifics: Other Emergency Center ([facility]
[2022-08-07] MEDS ORDERED: VANCOMYCIN IV PER PHARMACY 1 EACH MISC MISCELLANE PRN (21:15)
[2022-08-07] MEDS ORDERED: VANCOMYCIN 1,500 MG in SODIUM CHLORIDE 0.9% 500 ML 500 ML IVPB STA (21:15)
[2022-08-08] MEDS ORDERED: VANCOMYCIN 1,500 MG in SODIUM CHLORIDE 0.9% 500 ML 500 ML IVPB SCH (22:00)
== END 2022-08-07 21:39 | disposition other institution (70) ==
LOC: EC 16:36
DX: S05.32XA Ocular laceration without prolapse or loss of intraocular tissue, left eye, initial encounter (principal); S06.9X1A Unspecified intracranial injury with loss of consciousness of 30 minutes or less, initial encounter; H33.22 Serous retinal detachment, left eye; H43.12 Vitreous hemorrhage, left eye; H05.231 Hemorrhage of right orbit; I82.409 Acute embolism and thrombosis of unspecified deep veins of unspecified lower extremity; K21.9 Gastro-esophageal reflux disease without esophagitis; I10 Essential (primary) hypertension; M19.90 Unspecified osteoarthritis, unspecified site; E07.9 Disorder of thyroid, unspecified; F32.A Depression, unspecified; F41.9 Anxiety disorder, unspecified; Z87.891 Personal history of nicotine dependence; Z79.82 Long term (current) use of aspirin; Z79.83 Long term (current) use of bisphosphonates; Z79.01 Long term (current) use of anticoagulants; Z88.6 Allergy status to analgesic agent; Z88.5 Allergy status to narcotic agent; Z88.2 Allergy status to sulfonamides; Z88.1 Allergy status to other antibiotic agents; Z79.899 Other long term (current) drug therapy; Z88.8 Allergy status to other drugs, medicaments and biological substances; W01.0XXA Fall on same level from slipping, tripping and stumbling without subsequent striking against object, initial encounter
CPT/HCPCS: 36415; 80048; 85025; 85610; 85730; 73030; 73502; 72125; 70486; 70450; 99285; 96374; J1170

== ENCOUNTER → 2024-01-02 | Outpatient (CLI) | payer MEDICARE ==
[2024-01-02 18:32] LABS: Basophils # (A) 0.08 X 10*3/uL (0.00-0.10); Basophils % (A) 0.7 %; Eosinophils # (A) 0.15 X 10*3/uL (0.04-0.35); Eosinophils % (A) 1.3 %; HCT 44.9 % (37.2-46.3); HGB 14.5 g/dL (12.0-15.0); Lymphocytes # (A) 2.45 X 10*3/uL (0.90-5.00); Lymphocytes % (A) 20.9 %; MCH 30.5 pg (27.0-32.0); MCHC 32.3 g/dL (32.0-37.0); MCV 94.5 FL (80.0-97.0); Mean Platelet Volume 9.9 FL (9.5-12.2); Monocytes # (A) 0.92 X 10*3/uL (0.20-1.00); Monocytes % (A) 7.8 %; NRBC Per 100 WBC 0 X 10*3/uL (0.00-0.01); Neutrophils # (A) 8.09 X 10*3/uL (1.80-7.70); Platelet Count 264 X 10*3/uL (140-440); RBC 4.75 X 10*6/uL (4.10-5.20); RDW 14.7 % (11.5-14.5); WBC 11.73 X 10*3/uL (4.50-10.00)
[2024-01-02 19:16] LABS: % Iron Saturation 27.11 (12.00-45.00); Albumin 4.4 g/dL (3.8-4.9); BUN/Creat Ratio 26.45 Ratio (12.00-20.00); Blood Urea Nitrogen 29.1 mg/dL (9.0-27.0); Calcium 10.5 mg/dL (8.7-10.3); Carbon Dioxide 27.2 mmol/L (21.6-31.8); Chloride 100 mmol/L (96-109); Glucose 106 mg/dL (70-110); Iron 106 UG/DL (50-170); Phosphorus 3.2 mg/dL (2.4-5.1); Potassium 3.4 mmol/L (3.5-5.5); Sodium 143 mmol/L (135-145); Total Iron Binding Capacity 391 UG/DL (228-460); Uric Acid 7.9 mg/dL (2.9-7.7)
[2024-01-03 04:59] LABS: Appearance,Urine Clear (Clear); Bilirubin,Urine Negative (Negative); Blood,Urine Negative (Negative); Color,Urine Yellow (Yellow); Ketones,Urine Negative (Negative); Nitrite,Urine Negative (Negative); PH, Urine 7.5; Specific Gravity,Urine 1.007 (1.001-1.030); Urobilinogen,Urine 0.2 E.U./DL
[2024-01-03 05:06] LABS: Bacteria,Urine 4+ (None Seen)
[2024-01-03 05:40] LABS: Microalbumin Creatinine Ratio <41 mg/g Cr (0-30); Urine Creatinine 29.4 mg/dL (28.0-217.0)
== END | disposition home or self-care (01) ==
LOC: LABWHC1 13:32
PROVIDERS: ATTEND Internal Medicine Nephrology
DX: N18.2 Chronic kidney disease, stage 2 (mild) (principal)
CPT/HCPCS: 36415; 80048; 81001; 82040; 82043; 82306; 82570; 82728; 83540; 83550; 83735; 83970; 84100; 84550; 85025

== ENCOUNTER → 2024-01-02 | Outpatient (CLI) | payer MEDICARE ==
--- NOTE | 2024-01-02 14:48 | CT ---
EXAMINATION TYPE: CT facial bones wo con DATE OF EXAM: 01/02/2024 COMPARISON: 08/07/2022 HISTORY: chronic sinusitis CT DLP: 749 mGycm Automated exposure control for dose reduction was used. TECHNIQUE: CT scan of the sinuses is performed without contrast, axial images are obtained, coronal r eformatted images are also reviewed. FINDINGS: There has been fixation of a blowout fracture of the left infraorbital rim. Currently the intraorbita l contents are normal and symmetric. There is moderate to marked mucosal thickening and mucous retention cysts or polyp in the left maxill antionette sinus consistent with chronic sinusitis. There have been bilateral sinonasal antrostomies.. The f rontal ethmoid and sphenoid sinuses as well as the mastoid air cells and middle ear cavities are well aerated IMPRESSION: 1. Postsurgical changes of fixation of a blowout fracture of the left intraorbital rim and bilateral sinonasal antrostomies 2. Moderate chronic inflammatory change in the left maxillary sinus.
== END | disposition home or self-care (01) ==
LOC: RADCTMAIN 12:36
PROVIDERS: ATTEND Otolaryngology
DX: S02.32XA Fracture of orbital floor, left side, initial encounter for closed fracture (principal); J32.9 Chronic sinusitis, unspecified
CPT/HCPCS: 70486

== ENCOUNTER 2025-04-12 13:40 | Inpatient (IN) | payer MEDICARE ==
--- NOTE | 2025-04-12 14:07 | ED ---
General Adult HPI - General Chief complaint: Recheck/Abnormal Lab/Rx Stated complaint: R Hip Injury Time Seen by Provider: 04/12/25 13:43 Source: patient, family, EMS, RN notes reviewed Mode of arrival: EMS Limitations: no limitations - History of Present Illness Initial comments: 74-year-old female presenting to the emergency department via EMS for complaints of right hip pain after a fall. Patient states that she was walking to get a manicure and pedicure when she planted her left foot on a mildly elevated surface and went to lift her right foot up to get onto the surface with felt uneasy falling back onto her right hand side striking her right hip, scraping her elbow and hitting her head on the pavement. Patient states that she did not lose consciousness. She denies headache, neck pain, nausea or vomiting, blurry or double vision. She is denying neck pain. Denies blood thinner use. Patient endorses pain to the right hip and unable to complete range of motion due to this. She denies loss of bladder bowel control or saddle anesthesia since the fall. 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 Ware. - Related Data Home Medications Medication Instructions Recorded Confirmed Amitriptyline HCl [Elavil] 25 mg PO W/SUPPER 05/12/14 09/11/21 Aspirin 325 mg PO W/SUPPER 05/12/14 09/11/21 Cetirizine HCl [Zyrtec] 10 mg PO DAILY 05/12/14 09/11/21 Cholecalciferol [Vitamin D3] 2,000 unit PO DAILY 05/12/14 09/11/21 Furosemide [Lasix] 20 mg PO DAILY 05/12/14 09/11/21 L.acidoph,Plant/B.animal,Long 1 cap PO DAILY 05/12/14 09/11/21 [Probiotic Acidophilus Beads] Levothyroxine Sodium [Synthroid] 125 mcg PO QAM 05/12/14 09/11/21 Potassium Chloride [Klor-Con 10] 10 meq PO BID 05/12/14 09/11/21 allopurinoL [Zyloprim] 300 mg PO DAILY 05/12/14 09/11/21 busPIRone HCl [Buspar] 10 mg PO DAILY PRN 05/12/14 09/11/21 lisinopriL [Zestril] 20 mg PO HS 05/12/14 09/11/21 tiZANidine [Zanaflex] 2 mg PO HS 05/13/14 09/11/21 Selenium 200 mcg PO W/SUPPER 02/09/18 09/11/21 Zaleplon [Sonata] 10 mg PO HS 02/09/18 09/11/21 Acetaminophen [Tylenol Extra 1,000 mg PO DIRECTED PRN 08/03/21 09/11/21 Strength] Pravastatin Sodium [Pravachol] 40 mg PO HS 08/03/21 09/11/21 Cyclobenzaprine [Flexeril] 10 mg PO TID 09/11/21 09/11/21 Ibuprofen 200 mg PO Q8H 09/11/21 09/11/21 Red Yeast Rice 500 mg PO ONCE 09/11/21 09/11/21 Turmeric Root Extract [Turmeric] 500 mg PO ONCE 09/11/21 09/11/21 Ubidecarenone [Co Q-10] 400 mg PO ONCE 09/11/21 09/11/21 Previous Rx's Medication Instructions Recorded Apixaban [Eliquis] 2.5 mg PO BID 35 Days #70 tab 08/07/21 HYDROcodone/APAP 7.5-325MG [[place]xton 1 - 2 tab PO Q6H PRN #32 tab 08/07/21 7.5-325] Ondansetron Odt [Zofran Odt] 1 tab PO Q8HR PRN #10 tab 08/07/21 Sennosides [Senokot] 2 tab PO DAILY PRN #60 tablet 08/07/21 Apixaban [Eliquis] 2.5 mg PO BID 35 Days #70 tab 09/11/21 Ondansetron Odt [Zofran Odt] 1 tab PO Q8HR PRN #10 tab 09/11/21 Sennosides [Senokot] 2 tab PO DAILY PRN #60 tablet 09/11/21 HYDROcodone/APAP 7.5-325MG [[place] 1 - 2 tab PO Q6H PRN #32 tab 09/13/21 7.5-325] Allergies Allergy/AdvReac Type Severity Reaction Status Date / Time codeine Allergy Abdominal Verified 04/12/25 13:47 Pain Neuromuscular Blockers, Allergy Rash/Hives Verified 04/12/25 13:47 Steroidal [Steroidal Neuromuscular Blockers] Penicillins Allergy Abdominal Verified 04/12/25 13:47 Pain propoxyphene napsylate Allergy ache all Verified 04/12/25 13:47 [From Darvocet-N] over-flu like symptoms Sulfa (Sulfonamide Allergy rash, ache Verified 04/12/25 13:47 Antibiotics) all over ciprofloxacin [From Cipro] AdvReac Nausea & Verified 04/12/25 13:47 Vomiting ciprofloxacin HCl AdvReac Nausea & Verified 04/12/25 13:47 [From Cipro] Vomiting levofloxacin [From Levaquin] AdvReac Vomiting Verified 04/12/25 13:47 STEROIDS Allergy Rash/Hives Uncoded 04/12/25 13:47 Review of Systems ROS Statement: Those systems with pertinent positive or pertinent negative responses have been documented in the HPI. ROS Other: All systems not noted in ROS Statement are negative. Past Medical History Past Medical History: Deep Vein Thrombosis (DVT), Eye Disorder, Fibromyalgia, GERD/Reflux, Hypertension, Osteoarthritis (OA), Rheumatoid Arthritis (RA), Thyroid Disorder Additional Past Medical History / Comment(s): Gato cataracts, hx of kidney stones, past hx of kidney problems due to senior living use of anti inflammatory meds, no problems now, hx DVT in leg, hx of diverticulitis History of Any Multi-Drug Resistant Organisms: None Reported Past Surgical History: Appendectomy, Back Surgery, Joint Replacement, Orthopedic Surgery, Tubal Ligation Additional Past Surgical History / Comment(s): right hip replaced & revision, left total shoulder, left fused ankle, sinus surg. x 2, RT SHOULDE ATHROPLASTY,back-rods and screws L1-L5 Past Anesthesia/Blood Transfusion Reactions: Previous Problems w/ Anesthesia, Postoperative Nausea & Vomiting (PONV) Additional Past Anesthesia/Blood Transfusion Reaction / Comment(s): BP low after one of surg. CLAUSTERPHOBIA Past Psychological History: Anxiety, Depression Smoking Status: Former smoker Past Alcohol Use History: Rare Past Drug Use History: None Reported - Past Family History Mother Family Medical History: Coronary Artery Disease (CAD) Additional Family Medical History / Comment(s): CABG Father Family Medical History: Myocardial Infarction ([place]) General Exam Limitations: no limitations Respiratory exam: Present: normal lung sounds bilaterally. Absent: respiratory distress, wheezes, rales, rhonchi, stridor Cardiovascular Exam: Present: regular rate, normal rhythm, normal heart sounds. Absent: systolic murmur, diastolic murmur, rubs, gallop, clicks GI/Abdominal exam: Present: soft, normal bowel sounds. Absent: distended, tenderness, guarding, rebound, rigid Right Hip exam: Present: normal inspection, tenderness. Absent: full ROM, ecchymosis, deformity Gait: unable to bear weight Back exam: Present: normal inspection Course Vital Signs 04/12/25 04/12/25 04/12/25 13:43 15:39 16:57 Temperature 98 F 97.7 F 98 F Pulse Rate 104 H 79 99 Respiratory 18 16 18 Rate Blood Pressure 148/91 127/58 139/84 O2 Sat by Pulse 96 96 96 Oximetry Medical Decision Making - Medical Decision Making Was pt. sent in by a medical professional or institution (, PA, TRANSLATOR INTERPRETER, urgent care, hospital, or shelter...) When possible be specific @ -No Did you speak to anyone other than the patient for history (EMS, parent, family, police, friend...)? What history was obtained from this source @ -No Did you review nursing and triage notes (agree or disagree)? Why? @ -I reviewed and agree with nursing and triage notes Were old charts reviewed (outside hosp., previous admission, EMS record, old EKG, old radiological studies, urgent care reports/EKG's, shelter records)? Report findings @ -No old charts were reviewed Differential Diagnosis (chest pain, altered mental status, abdominal pain women, abdominal pain men, vaginal bleeding, weakness, fever, dyspnea, syncope, headache, dizziness, GI bleed, back pain, seizure, CVA, palpatations, mental health, musculoskeletal)? @ -Differential Musculoskeletal Muscular strain, contusion, ligament sprain, fracture, arthritis, septic arthritis, bursitis, cellulitis, muscle spasm, nerve compression, DVT, arterial occlusion, herpes zoster, electrolyte abnormality, tumor.... This is not meant to be in all inclusive list EKG interpreted by me (3pts min.). @ -None X-rays interpreted by me (1pt min.). @ -XR of the right hip and AP pelvis Clinical consideration for occult fracture of the mid right pubic ramus CT interpreted by me (1pt min.). @ -CT imaging of the right hip without contrast reveals an acute minimally displaced and comminuted right inferior pubic ramus fracture with a acute minimally displaced right ilium fracture hardware appears intact with appropriate alignment. U/S interpreted by me (1pt. min.). @ -None done What testing was considered but not performed or refused? (CT, X-rays, U/S, labs)? Why? @ -None What meds were considered but not given or refused? Why? @ -None Did you discuss the management of the patient with other professionals (professionals i.e. , PA, TRANSLATOR INTERPRETER, lab, RT, psych nurse, social service agency director, service delivery consultant, teacher, lead security officer, manager case management)? Give summary @ -I spoke with Gloria from [facility] was agreed to meet the patient for pain control with orthopedics on consult. Was smoking cessation discussed for >3mins.? @ -No Was critical care preformed (if so, how long)? @ -No Were there social determinants of health that impacted care today? How? (Homelessness, low income, unemployed, alcoholism, drug addiction, transportation, low edu. Level, literacy, decrease access to med. care, snf, rehab)? @ -No Was there de-escalation of care discussed even if they declined (Discuss DNR or withdrawal of care, Hospice)? DNR status @ -No What co-morbidities impacted this encounter? (DM, HTN, Smoking, COPD, CAD, Cancer, CVA, ARF, Chemo, Hep., AIDS, mental health diagnosis, sleep apnea, morbid obesity)? @ -None Was patient admitted / discharged? Hospital course, mention meds given and route, prescriptions, significant lab abnormalities, going to OR and other pertinent info. @ -Admitted. 72-year-old female presenting with family via EMS after a fall. Patient patient is unable to complete range of motion of the right hip despite pain medication. X-ray imaging possible fracture of the pubic ramus, with poor quality of x-ray CT imaging is ordered. CT reveals a minimally displaced and comminuted right inferior pubic rami fracture with acute minimally displaced right ilium fracture with hardware intact. Attempt to ambulate/transfer patient however she is unable to bear weight on the right leg. She will be admitted for intractable pain of the right hip with consults placed to orthopedics, physical therapy and Occupational Therapy. As needed medication orders placed. Case discussed with my attending Dr. Balbuena and Dr. Monet Undiagnosed new problem with uncertain prognosis? @ -No Drug Therapy requiring intensive monitoring for toxicity (Heparin, Nitro, Insulin, Cardizem)? @ -No Were any procedures done? @ -No Diagnosis/symptom? @ -Pubic rami fracture Acute, or Chronic, or Acute on Chronic? @ -Acute Uncomplicated (without systemic symptoms) or Complicated (systemic symptoms)? @ -Uncomplicated Side effects of treatment? @ -No Exacerbation, Progression, or Severe Exacerbation? @ -No Poses a threat to life or bodily function? How? (Chest pain, [place], [place], pneumonia, PE, COPD, DKA, ARF, appy, cholecystitis, CVA, Diverticulitis, Homicidal, Suicidal, threat to staff... and all critical care pts) @ -No Disposition Clinical Impression: Pubic ramus fracture Disposition: ADMITTED IP TO THIS [facility] Condition: Stable Additional Instructions: Please return to the Emergency Department if symptoms worsen or any other concerns. Please only weight-bear as tolerated and follow-up with provided pest control specialist. Take pain medication as needed and muscle relaxer as needed. Please do not take muscle relaxer with Paxton. You may take ibuprofen/Motrin with the Paxton. Referrals: Susannah Fischer DO [Primary Care Provider] - 1-2 days Time of Disposition: 16:37 Decision to Admit Reason: Admit from EC Decision Date: 04/12/25 Decision Time: 17:10
[2025-04-12] MEDS: HYDROmorphone 1 MG/ML 1 ML SYRINGE IM STA ×2 (14:09→16:58)
--- NOTE | 2025-04-12 14:50 | XR ---
EXAMINATION TYPE: XR Hip RT and AP Pelvis DATE OF EXAM: 04/12/2025 2:42 PM COMPARISON: Left hip 08/17/2022 CLINICAL INDICATION: Female, 74 years old with history of fall, pain, previous replacement, pain TECHNIQUE: 2 view(s) obtained right hip. Exam supplemented with an AP pelvis. FINDINGS: Bilateral hip prostheses are present. Femoral components appear to articulate with the acetabular com ponents on these images. No acute displaced fractures are evident. There is some subtle change along the mid right pubic ramus . An occult fracture should be considered. This may be an interval change from 2021. Symphysis pubis and sacroiliac joints are normal. Normal bowel gas is present. Right hip: Right hip prosthesis with acetabular component is present. Prosthesis appears to articulat e normally without dislocation identified. No acute fractures are evident. IMPRESSION: 1. Clinical consideration for an occult fracture of the mid right pubic ramus. 2. Bilateral hip prostheses without obvious dislocation or fracture. [facility], Workstation: [facility], 04/12/2025 2:47 PM
--- NOTE | 2025-04-12 16:17 | CT ---
EXAMINATION TYPE: CT hip RT wo con CT DLP: 1047.6 mGycm, Automated exposure control for dose reduction was used. DATE OF EXAM: 04/12/2025 3:49 PM COMPARISON: Right hip/pelvic radiographs 04/12/2025 CLINICAL INDICATION:Female, 74 years old with history of fall, possible fx of pubic rami, pain; PHH, FALL, POSS FX OF PUBIC RAMI TECHNIQUE: Axial images were obtained of the right hip without the use of IV contrast. Additional co elvira and sagittal reformatted images and soft tissue and bone window were obtained for review. 3-D r econstruction was created on a separate workstation. FINDINGS: Postsurgical changes from right hip arthroplasty. Hardware appears intact with appropriate alignment. No periprosthetic lucency to suggest loosening. This creates streak artifact which limits evaluation . Acute minimally comminuted and displaced fracture of the inferior pubic ramus. Acute minimally disp laced fracture of the right ilium extending from the level of the hip arthroplasty superiorly. The pu bic symphysis and right SI joint are intact. No dislocation. No significant surrounding soft tissue s welling. No visualized pelvic hematoma. Left proximal femur arthroplasty hardware with cerclage wires on claim analyst radiograph. Additional fixatio n hardware involving the lumbar spine on claim analyst radiograph. Sigmoid diverticulosis without evidence for acute diverticulitis. 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 One of the tracts extends to the anterior aspect of the L5-S1 disc. Calcified left fundal fibroid measuring up to 2.7 cm. IMPRESSION: 1. Acute minimally displaced and comminuted right inferior pubic ramus fracture. 2. Acute minimally displaced right ilium fracture. 3. Sigmoid diverticulosis without evidence for acute diverticulitis. 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 4. Postsurgical changes from right hip arthroplasty. Hardware appears intact with appropriate alignm ent. No evidence for loosening. 5. Fibroid changes of the uterus. [facility], , 04/12/2025 4:14 PM
[2025-04-12] MEDS ORDERED: ACETAMINOPHEN TAB 325 MG TAB PO PRN (17:17)
[2025-04-12] MEDS ORDERED: NALOXONE 0.4 MG/ML 1 ML VIAL IV PRN (17:17)
[2025-04-12] MEDS ORDERED: HYDROmorphone 1 MG/ML 1 ML SYRINGE IVP PRN (17:17)
[2025-04-12] MEDS ORDERED: AMITRIPTYLINE HCL 25 MG TAB PO PRN (20:08)
[2025-04-12] MEDS: PRAVASTATIN SODIUM 20 MG TAB PO SCH (21:42)
[2025-04-12] MEDS: TRIAMCINOLONE 0.1% CREAM 80 GM TUBE TOPICAL SCH (21:42)
[2025-04-12] MEDS: HYDROmorphone 0.5 MG/0.5 ML SYRINGE IVP PRN (21:43)
[2025-04-13] MEDS: LEVOTHYROXINE 100 MCG TAB PO SCH (05:40)
[2025-04-13] MEDS: HYDROcodone/APAP 5-325MG 1 EACH TAB PO PRN (05:40)
[2025-04-13 07:57] LABS: Basophils # (A) 0.10 X 10*3/uL (0.00-0.10); Basophils % (A) 1.1 %; Eosinophils # (A) 0.07 X 10*3/uL (0.04-0.35); Eosinophils % (A) 0.7 %; HCT 43.4 % (37.2-46.3); HGB 14.3 g/dL (12.0-15.0); Immature Grans, Automated 0.70 %; Lymphocytes # (A) 2.41 X 10*3/uL (0.90-5.00); Lymphocytes % (A) 25.6 %; MCH 31.0 pg (27.0-32.0); MCHC 32.9 g/dL (32.0-37.0); MCV 94.1 FL (80.0-97.0); Monocytes # (A) 1.03 X 10*3/uL (0.20-1.00); Monocytes % (A) 10.9 %; NRBC Per 100 WBC 0 X 10*3/uL (0.00-0.01); Neutrophils # (A) 5.73 X 10*3/uL (1.80-7.70); Neutrophils % (A) 61.0 %; Platelet Count 269 X 10*3/uL (140-440); RBC 4.61 X 10*6/uL (4.10-5.20); RDW 14.7 % (11.5-14.5); WBC 9.41 X 10*3/uL (4.50-10.00)
[2025-04-13] MEDS: METOPROLOL SUCCINATE (ER) 25 MG TAB.ER.24H PO SCH (07:57)
[2025-04-13] MEDS: TORSEMIDE 20 MG TAB PO SCH (07:58)
[2025-04-13 08:32] LABS: ALT 18 U/L (8-44); AST 33 U/L (13-35); Albumin 4.1 g/dL (3.8-4.9); Albumin/Globulin Ratio 1.58 Ratio (1.60-3.17); Alkaline Phosphatase 76 U/L (41-126); Anion Gap 17.20 mmol/L (4.00-12.00); BUN/Creat Ratio 20.23 Ratio (12.00-20.00); Blood Urea Nitrogen 26.3 mg/dL (9.0-27.0); Calcium 9.6 mg/dL (8.7-10.3); Carbon Dioxide 25.8 mmol/L (21.6-31.8); Chloride 94 mmol/L (96-109); Globulin 2.6 g/dL (1.6-3.3); Glucose 163 mg/dL (70-110); Potassium 3.7 mmol/L (3.5-5.5); Sodium 137 mmol/L (135-145); Total Protein 6.7 g/dL (6.2-8.2)
--- NOTE | 2025-04-13 11:41 | P.CNOR ---
History of Present Illness - HPI Consult date: 04/13/25 History of present illness: This is a 74-year-old female who is admitted after a fall. Orthopedics is consulted for further evaluation. Patient is seen and evaluated at bedside today. Patient states that she was walking to get her nails done when she lost balance and fell on the right hip. Patient states that she presented to the emergency room and x-rays revealed a right inferior pubic rami fracture. Patient states that she had difficulty with transfers due to pain. Patient states that she has a history of right total hip arthroplasty last [place] [address] Hernandez. Patient denies any numbness, tingling, weakness, fever/chills. Patient's past medical history is significant for DVT, fibromyalgia, GERD, history of kidney stones, hypertension, osteoarthritis, rheumatoid arthritis, kidney disease, diverticulitis, thyroid disorder and cataracts. Review of Systems See HPI. 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 x 2, RT SHOULDE ATHROPLASTY,back-rods and screws L1-L5 Past Anesthesia/Blood Transfusion Reactions: Previous Problems w/ Anesthesia, P ostoperative Nausea & Vomiting (PONV) Additional Past Anesthesia/Blood Transfusion Reaction / Comm: BP low after one of surg. CLAUSTERPHOBIA Past Psychological History: Anxiety, Depression Smoking Status: Former smoker Past Alcohol Use History: Rare Additional Past Alcohol Use History / Comment(s): quit smoking 1990, smoked for 20 yrs-< 1 PPD Past Drug Use History: None Reported - Past Family History Mother Family Medical History: Coronary Artery Disease (CAD) Additional Family Medical History / Comment(s): CABG Father Family Medical History: Myocardial Infarction ([place]) Medications and Allergies Home Medications Medication Instructions Recorded Confirmed Type Amitriptyline HCl [Elavil] 25 mg PO HS PRN 05/12/14 04/12/25 History Potassium Chloride [Klor-Con 10] 10 meq PO TID 05/12/14 04/12/25 History Cyclobenzaprine [Flexeril] 10 mg PO TID PRN 09/11/21 04/12/25 History HYDROcodone/APAP 10-325MG [[place] 1 tab PO Q6HR PRN 04/12/25 04/12/25 History 10-325] Levothyroxine Sodium [Synthroid] 100 mcg PO SUMOWEFR 04/12/25 04/12/25 History Levothyroxine Sodium [Synthroid] 112 mcg PO TUTHSA 04/12/25 04/12/25 History Metoprolol Succinate (ER) [Toprol 25 mg PO DAILY 04/12/25 04/12/25 History Xl] Pravastatin Sodium [Pravachol] 20 mg PO HS 04/12/25 04/12/25 History Torsemide [Demadex] 20 mg PO DAILY 04/12/25 04/12/25 History Triamcinolone 0.1% Cream [Kenalog 1 applicatio TOPICAL BID 04/12/25 04/12/25 History 0.1% Cream] allopurinoL [Zyloprim] 100 mg PO DAILY 04/12/25 04/12/25 History busPIRone HCl [Buspar] 5 mg PO BID 04/12/25 04/12/25 History Allergies Allergy/AdvReac Type Severity Reaction Status Date / Time codeine Allergy Abdominal Verified 04/12/25 19:00 Pain Neuromuscular Blockers, Allergy Rash/Hives Verified 04/12/25 19:00 Steroidal [Steroidal Neuromuscular Blockers] Penicillins Allergy Abdominal Verified 04/12/25 19:00 Pain propoxyphene napsylate Allergy ache all Verified 04/12/25 19:00 [From Darvocet-N] over-flu like symptoms Sulfa (Sulfonamide Allergy rash, ache Verified 04/12/25 19:00 Antibiotics) all over ciprofloxacin [From Cipro] AdvReac Nausea & Verified 04/12/25 19:00 Vomiting ciprofloxacin HCl AdvReac Nausea & Verified 04/12/25 19:00 [From Cipro] Vomiting levofloxacin [From Levaquin] AdvReac Vomiting Verified 04/12/25 19:00 STEROIDS Allergy Rash/Hives Uncoded 04/12/25 19:00 Physical Examination On exam patient is resting comfortably in bed in no acute distress. Patient is alert and oriented 3. Right lower extremity exam: Skin is intact. Minimal soft tissue swelling. Mild pain with logroll of the right lower extremity. Patient is able to actively flex and extend the right lower extremity with some limitation secondary to pain. Calf is soft and non tender to palpation. Patient has full motion of the right foot and ankle. Sensation intact. Neurovascular status and circulatory status are intact. Results X-rays of the right hip and pelvis dated 04/12/2025 shows: 1. Clinical consideration for an occult fracture of the mid right pubic ramus. 2. Bilateral hip prosthesis without obvious dislocation or fracture. A CT of the right hip dated 04/12/2025 shows: 1. Acute minimally displaced and comminuted right inferior pubic ramus fracture. 2. Acute minimally displaced right ilium fracture. 3. Sigmoid diverticulosis without evidence for acute diverticulitis. There is an adjacent complex gas containing fistula involving the sigmoid colon. - Labs Labs: Abnormal Lab Results - Last 24 Hours (Table) 04/13/25 04/13/25 Range/Units 02:47 02:47 RDW 14.7 H (11.5-14.5) % Immature Gran # 0.07 H (0.00-0.04) X 10*3/uL Monocytes # 1.03 H (0.20-1.00) X 10*3/uL Chloride 94 L (96-109) mmol/L Anion Gap 17.20 H (4.00-12.00) mmol/L Est GFR (CKD-EPI) 44 L (>=60) BUN/Creatinine Ratio 20.23 H (12.00-20.00) Ratio Glucose 163 H (70-110) mg/dL Albumin/Globulin Ratio 1.58 L (1.60-3.17) Ratio H & H 04/13/25 Range/Units 02:47 Hgb 14.3 (12.0-15.0) g/dL Hct 43.4 (37.2-46.3) % Result Diagrams: 04/13/25 02:47 04/13/25 02:47 Assessment and Plan (1) Fracture of inferior pubic ramus Current Visit: Yes Status: Acute Code(s): S32.599A - OTH FRACTURE OF UNSP PUBIS, INIT ENCNTR FOR CLOSED FRACTURE SNOMED Code(s): 387055639 Plan: 1. X-rays and CT are reviewed. Recommend toe-touch weightbearing to the right lower extremity with a walker. 2. Continue pain control. 3. Patient has a history of DVT. Recommend aspirin for DVT prophylaxis. 4. No indication for surgical intervention. Recommend physical therapy for mobilization. Patient may follow-up on an outpatient basis.
[2025-04-13] MEDS: CYCLOBENZAPRINE 10 MG TAB PO PRN (14:28)
--- NOTE | 2025-04-13 22:56 | P.HPIM ---
History of Present Illness This is a pleasant 74 years old female who presents because of fall from home. Patient states she tripped and fell. After her fall she was complaining from pain in her right hip area about 10/10. The pain was radiating to her right knee She described the pain as dull increased by movement. After fall she remained on the ground. Patient states that she fell because she lost balance when she was trying to process 1 step She states she has chronic kidney disease and follow-up with Dr. Doan as an outpatient. She denies chest pain or dyspnea. No diarrhea or vomiting. No dysuria urgency. No headache dizziness weakness numbness./ She is hemodynamically stable. No fever. CBC and LFT were unremarkable creatinine 1.3 unknown baseline but from history it looks like this is part of her chronic kidney disease. Hip CT showing acute comminuted fracture of the right inferior pubic ramus and right ilium fracture. Review of Systems Review of systems CONSTITUTIONAL: No fever, no malaise, no fatigue. HEENT: No recent visual problems or hearing problems. Denied any sore throat. CARDIOVASCULAR: No orthopnea, PND, no palpitations, no syncope. PULMONARY: No shortness of breath, no cough, no hemoptysis. GASTROINTESTINAL: No diarrhea, no nausea, no vomiting, no abdominal pain. Normoactive bowel sounds. NEUROLOGICAL: No headaches, no weakness, no numbness. HEMATOLOGICAL: Denies any bleeding or petechiae. GENITOURINARY: Denies any burning micturition, frequency, or urgency. MUSCULOSKELETAL/RHEUMATOLOGICAL: Denies any joint pain, swelling, or any muscle pain. ENDOCRINE: Denies any polyuria or polydipsia. Past Medical History Past Medical History: Deep Vein Thrombosis (DVT), Eye Disorder, Fibromyalgia, GERD/Reflux, Hypertension, Osteoarthritis (OA), Rheumatoid Arthritis (RA), Thyroid Disorder Additional Past Medical History / Comment(s): [place] cataracts, hx of kidney stones, past hx of kidney problems due to group home use of anti inflammatory meds, no problems now, hx DVT in leg, hx of diverticulitis History of Any Multi-Drug Resistant Organisms: None Reported Past Surgical History: Appendectomy, Back Surgery, Joint Replacement, Orthopedic Surgery, Tubal Ligation Additional Past Surgical History / Comment(s): right hip replaced & revision, left total shoulder, left fused ankle, sinus surg. x 2, RT SHOULDE ATHROPLASTY,back-rods and screws L1-L5 Past Anesthesia/Blood Transfusion Reactions: Previous Problems w/ Anesthesia, Postoperative Nausea & Vomiting (PONV) Additional Past Anesthesia/Blood Transfusion Reaction / Comment(s): BP low after one of surg. CLAUSTERPHOBIA Past Psychological History: Anxiety, Depression Smoking Status: Former smoker Past Alcohol Use History: Rare Additional Past Alcohol Use History / Comment(s): quit smoking 1990, smoked for 20 yrs-< 1 PPD Past Drug Use History: None Reported - Past Family History Mother Family Medical History: Coronary Artery Disease (CAD) Additional Family Medical History / Comment(s): CABG Father Family Medical History: Myocardial Infarction (NC) Medications and Allergies Home Medications Medication Instructions Recorded Confirmed Type Amitriptyline HCl [Elavil] 25 mg PO HS PRN 05/12/14 04/12/25 History Potassium Chloride [Klor-Con 10] 10 meq PO TID 05/12/14 04/12/25 History Cyclobenzaprine [Flexeril] 10 mg PO TID PRN 09/11/21 04/12/25 History HYDROcodone/APAP 10-325MG [[place] 1 tab PO Q6HR PRN 04/12/25 04/12/25 History 10-325] Levothyroxine Sodium [Synthroid] 100 mcg PO SUMOWEFR 04/12/25 04/12/25 History Levothyroxine Sodium [Synthroid] 112 mcg PO TUTHSA 04/12/25 04/12/25 History Metoprolol Succinate (ER) [Toprol 25 mg PO DAILY 04/12/25 04/12/25 History Xl] Pravastatin Sodium [Pravachol] 20 mg PO HS 04/12/25 04/12/25 History Torsemide [Demadex] 20 mg PO DAILY 04/12/25 04/12/25 History Triamcinolone 0.1% Cream [Kenalog 1 applicatio TOPICAL BID 04/12/25 04/12/25 History 0.1% Cream] allopurinoL [Zyloprim] 100 mg PO DAILY 04/12/25 04/12/25 History busPIRone HCl [Buspar] 5 mg PO BID 04/12/25 04/12/25 History Allergies Allergy/AdvReac Type Severity Reaction Status Date / Time codeine Allergy Abdominal Verified 04/12/25 19:00 Pain Neuromuscular Blockers, Allergy Rash/Hives Verified 04/12/25 19:00 Steroidal [Steroidal Neuromuscular Blockers] Penicillins Allergy Abdominal Verified 04/12/25 19:00 Pain propoxyphene napsylate Allergy ache all Verified 04/12/25 19:00 [From Darvocet-N] over-flu like symptoms Sulfa (Sulfonamide Allergy rash, ache Verified 04/12/25 19:00 Antibiotics) all over ciprofloxacin [From Cipro] AdvReac Nausea & Verified 04/12/25 19:00 Vomiting ciprofloxacin HCl AdvReac Nausea & Verified 04/12/25 19:00 [From Cipro] Vomiting levofloxacin [From Levaquin] AdvReac Vomiting Verified 04/12/25 19:00 STEROIDS Allergy Rash/Hives Uncoded 04/12/25 19:00 Physical Exam Vitals: Vital Signs Temp Pulse Pulse Resp BP Pulse Ox 04/13/25 20:09 101 H 132/77 04/13/25 13:41 98.4 F 102 H 17 137/81 93 L 04/13/25 07:21 97.4 F L 96 17 130/81 93 L 04/13/25 02:04 98.1 F 94 18 128/78 95 Intake and Output 04/13/25 04/13/25 04/13/25 06:59 14:59 22:59 Output Total 850 Balance -850 Output: Urine 850 Other: Voiding Method External Catheter # Voids 1 GENERAL: The patient is alert and oriented x3, not in any acute distress. Well developed, well nourished. HEENT: Pupils are round and equally reacting to light. EOMI. No scleral icterus. No conjunctival pallor. Normocephalic, atraumatic. No pharyngeal erythema. No thyromegaly. CARDIOVASCULAR: S1 and S2 present. No murmurs, rubs, or gallops. PULMONARY: Chest is clear to auscultation, no wheezing , no crackles. ABDOMEN: Soft, nontender, nondistended, normoactive bowel sounds. No palpable organomegaly. MUSCULOSKELETAL: No joint swelling or deformity. EXTREMITIES: No cyanosis, clubbing, or pedal edema. NEUROLOGICAL: Gross neurological examination did not reveal any focal deficits. SKIN: No rashes. no petechiae. Results CBC & Chem 7: 04/13/25 02:47 04/13/25 02:47 Labs: Abnormal Lab Results - Last 24 Hours (Table) 04/13/25 04/13/25 Range/Units 02:47 02:47 RDW 14.7 H (11.5-14.5) % Immature Gran # 0.07 H (0.00-0.04) X 10*3/uL Monocytes # 1.03 H (0.20-1.00) X 10*3/uL Chloride 94 L (96-109) mmol/L Anion Gap 17.20 H (4.00-12.00) mmol/L Est GFR (CKD-EPI) 44 L (>=60) BUN/Creatinine Ratio 20.23 H (12.00-20.00) Ratio Glucose 163 H (70-110) mg/dL Albumin/Globulin Ratio 1.58 L (1.60-3.17) Ratio Thrombosis Risk Factor Assmnt - Choose All That Apply Any of the Below Risk Factors Present?: Yes Each Factor Represents 1 point: Obesity (BMI >25) Other Risk Factors: Yes Each Risk Factor Represents 2 Points: Age 61-74 years Each Risk Factor Represents 3 Points: History of DVT/PE Other congenital or acquired thrombophilia - If yes, enter type in comment: No Thrombosis Risk Factor Assessment Total Risk Factor Score: 6 Thrombosis Risk Factor Assessment Level: High Risk Assessment and Plan Assessment: Fall without syncope Acute commuted fracture of the right inferior pubic ramus and acute commuted fracture of the right ilium Hypothyroidism Hypertension Dyslipidemia Depression History of DVT and PE Gastroesophageal flux disease Fibromyalgia Osteoarthritis Plan: Continue with pain management Orthopedic team consult Monitor creatinine check urinalysis and rule out bladder obstruction Labs and medication were reviewed.. Continue same treatment. Continue with symptomatic treatment. Resume home medication. Monitor labs and vitals. DVT and GI prophylaxis. Further recommendations as per clinical course of the patient DVT prophylaxis: Subcutaneous heparin GI Prophylaxis: Pepcid PT/OT: Pending Prognosis is guarded
[2025-04-14 02:13] LABS: Bacteria,Urine Rare /hpf; Bilirubin,Urine Negative (Negative); Blood,Urine Negative (Negative); Budding Yeast,Urine Rare /hpf; Calcium Oxalate Crystals,Urine Rare /hpf; Color,Urine Colorless; Glucose,Urine (UA) Negative (Negative); Hyaline Casts,Urine 16 /lpf (0-2); Ketones,Urine Negative (Negative); Leukocyte Esterase,Urine Small (Negative); Nitrite,Urine Negative (Negative); PH, Urine 6.0 (5.0-8.0); Protein,Urine Negative (Negative); RBC,Urine <1 /hpf (0-5); Specific Gravity,Urine 1.010 (1.001-1.035); Squamous Epithelial Cell,Urine 1 /hpf (0-4); Urobilinogen,Urine <2.0 mg/dL (<2.0); WBC,Urine 3 /hpf (0-5)
[2025-04-14 05:27] LABS: African American GFR (CKD) 55 (>60 ml/min/1.73 sqM); Anion Gap 13 mmol/L; Blood Urea Nitrogen 30 mg/dL (7-17); Calcium 9.4 mg/dL (8.4-10.2); Carbon Dioxide 25 mmol/L (22-30); Chloride 92 mmol/L (98-107); Glucose 152 mg/dL (74-99); Non-African American GFR(CKD) 47 (>60 ml/min/1.73 sqM); Potassium 3.3 mmol/L (3.5-5.1); Sodium 130 mmol/L (137-145)
[2025-04-14] MEDS: LEVOTHYROXINE 112 MCG TAB PO SCH (07:38)
[2025-04-14] MEDS: LEVOTHYROXINE 100 MCG TAB PO STA (07:38)
[2025-04-14 09:30] LABS: Basophils # (A) 0.09 X 10*3/uL (0.00-0.10); Basophils % (A) 0.9 %; Eosinophils # (A) 0.24 X 10*3/uL (0.04-0.35); Eosinophils % (A) 2.5 %; HCT 42.1 % (37.2-46.3); HGB 14.0 g/dL (12.0-15.0); Immature Grans, Automated 0.60 %; Lymphocytes # (A) 2.24 X 10*3/uL (0.90-5.00); Lymphocytes % (A) 23.2 %; MCH 31.3 pg (27.0-32.0); MCHC 33.3 g/dL (32.0-37.0); MCV 94.2 FL (80.0-97.0); Monocytes # (A) 0.96 X 10*3/uL (0.20-1.00); Monocytes % (A) 10.0 %; NRBC Per 100 WBC 0 X 10*3/uL (0.00-0.01); Neutrophils # (A) 6.05 X 10*3/uL (1.80-7.70); Neutrophils % (A) 62.8 %; Platelet Count 211 X 10*3/uL (140-440); RBC 4.47 X 10*6/uL (4.10-5.20); RBC Morphology Normal (Normal); RDW 14.4 % (11.5-14.5); WBC 9.64 X 10*3/uL (4.50-10.00)
[2025-04-14] MEDS: LEVOTHYROXINE 25 MCG TAB PO STA (11:00)
[2025-04-14] MEDS ORDERED: Potassium Replacement Protocol 1 EACH MISC MISCELLANE PRN (13:00)
[2025-04-14] MEDS: POTASSIUM CHLORIDE ER 20 MEQ TAB.ER PO SCH (13:42)
--- NOTE | 2025-04-14 14:31 | XR ---
EXAMINATION TYPE: XR chest 1V portable DATE OF EXAM: 04/14/2025 2:05 PM COMPARISON: 04/05/2020 CLINICAL INDICATION: Female, 74 years old with history of chf, TECHNIQUE: XR chest 1V portable view(s) obtained. FINDINGS: The heart size is mildly prominent. The pulmonary vasculature is normal. The lungs are clear. IMPRESSION: 1. No acute pulmonary process. [facility], , 04/14/2025 2:29 PM
[2025-04-14] MEDS: SODIUM CHLORIDE 0.9% 1,000 ML IV SCH (19:39)
[2025-04-14] MEDS: HEPARIN SODIUM,PORCINE 5,000 UNIT/ML 1 ML VIAL SQ SCH (20:58)
--- NOTE | 2025-04-15 04:26 | PN ---
PROGRESS NOTE DATE OF SERVICE: 04/14/2025 SUBJECTIVE: This is a 74-year-old woman who was admitted with fall, had comminuted fracture of the right inferior pubic ramus and comminuted fracture of the right ilium. The patient is complaining of severe pain. No chest pain. No palpitation. OBJECTIVE: VITAL SIGNS: Pulse is 116, blood pressure 118/82, respirations 17. HEENT: Conjunctivae normal. NECK: No jugular venous distention. CARDIOVASCULAR: S1, S2. RESPIRATION: Breath sounds diminished at the bases. ABDOMEN: Soft. MUSCULOSKELETAL: Movement of the right hip is painful. LABORATORY DATA: Noted. ASSESSMENT: 1. Acute comminuted fracture of the right inferior pubic ramus and comminuted fracture of the right ilium with severe pain. 2. Gait dysfunction. 3. Elevated creatinine with possible acute renal failure. 4. Fall. 5. Hypothyroidism. 6. History of dyslipidemia. 7. Depression. 8. History of deep vein thrombosis and pulmonary embolism. RECOMMENDATIONS: Recommend to continue current management and symptomatic treatment, otherwise pain management. Avoid nephrotoxic medications. Recommend IV fluids, PT, OT evaluation. Resume the home medications. Prognosis is guarded because of multiple complex medical issues and further recommendations to follow. See orders for details. MMODL / IJN: [id number] /
[2025-04-15 07:52] LABS: Basophils # (A) 0.09 X 10*3/uL (0.00-0.10); Basophils % (A) 1.1 %; Eosinophils # (A) 0.27 X 10*3/uL (0.04-0.35); Eosinophils % (A) 3.2 %; HCT 40.5 % (37.2-46.3); HGB 13.2 g/dL (12.0-15.0); Immature Grans, Automated 0.60 %; Lymphocytes # (A) 1.96 X 10*3/uL (0.90-5.00); Lymphocytes % (A) 23.1 %; MCH 31.1 pg (27.0-32.0); MCHC 32.6 g/dL (32.0-37.0); MCV 95.5 FL (80.0-97.0); Monocytes # (A) 0.82 X 10*3/uL (0.20-1.00); Monocytes % (A) 9.7 %; NRBC Per 100 WBC 0 X 10*3/uL (0.00-0.01); Neutrophils # (A) 5.30 X 10*3/uL (1.80-7.70); Neutrophils % (A) 62.3 %; Platelet Count 239 X 10*3/uL (140-440); RBC 4.24 X 10*6/uL (4.10-5.20); RDW 14.4 % (11.5-14.5); WBC 8.49 X 10*3/uL (4.50-10.00)
[2025-04-15 08:16] LABS: Anion Gap 12.50 mmol/L (4.00-12.00); BUN/Creat Ratio 19.70 Ratio (12.00-20.00); Blood Urea Nitrogen 19.7 mg/dL (9.0-27.0); Calcium 9.0 mg/dL (8.7-10.3); Carbon Dioxide 25.5 mmol/L (21.6-31.8); Chloride 101 mmol/L (96-109); Glucose 154 mg/dL (70-110); Potassium 4.1 mmol/L (3.5-5.5); Sodium 139 mmol/L (135-145)
[2025-04-16] MEDS: HYDROcodone/APAP 7.5-325MG 1 EACH TAB PO PRN (01:27)
--- NOTE | 2025-04-16 05:33 | P.PN ---
Subjective Progress Note Date: 04/15/25 This is a pleasant 74 years old female who presents because of fall from home. Patient states she tripped and fell. After her fall she was complaining from pain in her right hip area about 10/10. The pain was radiating to her right knee She described the pain as dull increased by movement. After fall she remained on the ground. Patient states that she fell because she lost balance when she was trying to process 1 step She states she has chronic kidney disease and follow-up with Dr. Doan as an out patient. She denies chest pain or dyspnea. No diarrhea or vomiting. No dysuria urgency. No headache dizziness weakness numbness./ She is hemodynamically stable. No fever. CBC and LFT were unremarkable creatinine 1.3 unknown baseline but from history it looks like this is part of her chronic kidney disease. Hip CT showing acute comminuted fracture of the right inferior pubic ramus and right ilium fracture. 04/15/2025 Patient is seen in follow-up today evaluated by orthopedics with no plans of surgical intervention at this time recommended conservative management and patient will be going to ECF as patient is significantly weak and having continued ongoing pain. Patient is currently awaiting insurance authorization for ECF as well. Patient's pain is 10/10 and reports the IV pain medications are the only thing helping at this time. Patient had been refusing the [place] reporting it was not helping. Will adjust medications and increase the [place] and recommending weaning IV Dilaudid. Encourage sitting up in the chair more frequently and increase activity as tolerated. Would recommend incentive spirometer as well and encouraged the patient to use at least 10 times every hour while awake. Review of systems: Constitutional: No reports of fatigue, fever, or chills Cardiovascular: No reports of chest pain or palpitations Respiratory: No reports of shortness of breath or cough GI: No reports of nausea, vomiting, or diarrhea : No reports of dysuria or retention Neurovascular: Reports of continued generalized weakness and significant pain All medications have been reviewed Physical exam: GENERAL: The patient is alert and oriented x3, currently sitting up in the chair reporting significant pain. Well developed, obese HEENT: Pupils are round and equally reacting to light. EOMI. No scleral icterus. No conjunctival pallor. Normocephalic, atraumatic. No pharyngeal erythema. No thyromegaly. CARDIOVASCULAR: S1 and S2 muffled PULMONARY: Diminished breath sounds bilaterally otherwise chest is clear to auscultation, no wheezing , no crackles. ABDOMEN: Soft, obese, nontender, nondistended, normoactive bowel sounds. No palpable organomegaly. MUSCULOSKELETAL: No joint swelling or deformity. EXTREMITIES: No cyanosis, clubbing, or pedal edema. NEUROLOGICAL: Gross neurological examination did not reveal any focal deficits. Diffusely weak SKIN: No rashes. no petechiae. Assessment: Fall without syncope Acute commuted fracture of the right inferior pubic ramus and acute commuted fracture of the right ilium, no plans of surgical intervention, recommending conservative management Hypothyroidism Hypertension Dyslipidemia Depression Obesity with a BMI of 37.5 History of DVT and PE Gastroesophageal reflux disease Fibromyalgia Osteoarthritis GI prophylaxis DVT prophylaxis Full code Plan: Continue with pain management and patient is reporting significant 10/10 pain with any type of movement and reporting Dilaudid is the only thing helping. Recommend weaning Dilaudid and will adjust oral pain medication. Patient was reporting [place] was not helping and will increase the dose and frequency. Orthopedic has evaluated the patient recommending conservative management with no plans of surgical intervention Kidney functions are improving and recommend repeat labs. Replace electrolytes per protocol Recommend incentive spirometer use at least 10 times every hour while awake Plan will be for ECF on discharge and currently awaiting insurance authorization Continue with adjusted pain regimen and will reevaluate for possible discharge planning to ECF in the next 24 hours Due to multiple complex medical issues, overall prognosis is guarded The impression and plan of care has been dictated by Gloria Amato, Nurse Practitioner as directed. Dr. James MD I have performed a history and examination and MDM of this patient, discussed the same with the dictator, and agree with the dictator's assessment and plan as written ,documented as a scribe. Based on total visit time, I have performed more than 50% of the visit. Objective - Vital Signs Vital signs: Vital Signs Temp 98.4 F 04/15/25 14:00 Pulse 100 04/15/25 14:00 Resp 17 04/15/25 14:00 BP 104/72 04/15/25 14:00 Pulse Ox 95 04/15/25 14:00 FiO2 Intake & Output 04/14/25 04/15/25 04/15/25 18:59 06:59 18:59 Output Total 950 300 800 Balance -950 -300 -800 Output: Urine 950 300 800 Other: Voiding Method External Catheter External Catheter External Catheter # Voids 3 1 - Labs CBC & Chem 7: 04/15/25 05:11 04/15/25 05:11 Labs: Abnormal Lab Results - Last 24 Hours (Table) 04/15/25 04/15/25 Range/Units 05:11 05:11 Immature Gran # 0.05 H (0.00-0.04) X 10*3/uL Anion Gap 12.50 H (4.00-12.00) mmol/L Glucose 154 H (70-110) mg/dL
[2025-04-16 10:03] LABS: Anion Gap 11.70 mmol/L (4.00-12.00); BUN/Creat Ratio 20.56 Ratio (12.00-20.00); Blood Urea Nitrogen 18.5 mg/dL (9.0-27.0); Calcium 9.0 mg/dL (8.7-10.3); Carbon Dioxide 25.3 mmol/L (21.6-31.8); Chloride 102 mmol/L (96-109); Glucose 114 mg/dL (70-110); Potassium 4.1 mmol/L (3.5-5.5); Sodium 139 mmol/L (135-145)
[2025-04-16] MEDS: HEPARIN SODIUM,PORCINE 5,000 UNIT/ML 1 ML VIAL SQ SCH (17:55)
--- NOTE | 2025-04-17 02:43 | PN ---
PROGRESS NOTE DATE OF SERVICE: 04/16/2025 SUBJECTIVE: This is a 74-year-old woman, who was admitted with fall without syncope, also had a pubic ramus fracture. The patient has an extremely severe excruciating pain at this time. PT, OT evaluation for possible ECF rehab. OBJECTIVE: VITAL SIGNS: Pulse 98, blood pressure 130/80, respirations 16. CHEST: Clear to auscultation. CARDIOVASCULAR: S1, S2. ABDOMEN: Soft. EXTREMITIES: Wound of the right leg is painful. LABORATORY DATA: Noted. ASSESSMENT: 1. Fall and comminuted fracture of the right inferior pubic ramus and comminuted fracture of the right ilium. 2. Hypertension. 3. Hypothyroidism. 4. Gait dysfunction. 5. Severe pain. 6. Multiple complex medical issues. RECOMMENDATIONS: I recommend to continue current management. Continue with DVT prophylaxis, pain management. PT, OT evaluation, possible ECF rehab. Further recommendations to follow. MMFISHL / IJN: [id number] /
--- NOTE | 2025-04-17 16:07 | PN ---
PROGRESS NOTE DATE OF SERVICE: 04/17/2025 SUBJECTIVE: This is a 74-year-old woman, who was admitted with pelvic fracture, has had significant pain. No chest pain. No palpitations. ECF rehab is being planned. OBJECTIVE: VITAL SIGNS: Pulse is 90, blood pressure 130/70, and respirations 16. CHEST: Clear to auscultation. CARDIOVASCULAR: S1, S2. ABDOMEN: Soft. EXTREMITIES: Movements of leg painful. LABORATORY DATA: Reviewed. ASSESSMENT: 1. Fall and comminuted fracture of the right inferior pubic ramus and comminuted fracture of the right ilium. 2. Hypertension. 3. Hypothyroidism. 4. History of multiple complex medical issues. RECOMMENDATIONS: I recommend to continue current management and continue symptomatic treatment. Continue the pain management. Possible ECF rehab. Further recommendations to follow. MMODL / IJN: [id number] /
[2025-04-18 14:10] VITALS: BP 113/73; PULSE 100; RESP 18; TEMP 98
--- NOTE | 2025-04-18 15:48 | P.DS ---
Providers Date of admission: 04/12/25 17:42 Expected date of discharge: 04/18/25 Attending physician: Ankit Magana MD Consults: 04/12/25 17:17 Consult Physician Routine Consulting Provider: Edgar Ware Consult Reason/Comments: pubic rami fracture Do you want consulting provider notified?: Yes, Notify in am Primary care physician: Susannah Fischer DO Hospital Course: Final diagnosis Fall without syncope Acute commuted fracture of the right inferior pubic ramus and acute commuted fracture of the right ilium, no plans of surgical intervention, recommending conservative management Hypothyroidism Hypertension Dyslipidemia Depression Obesity with a BMI of 37.5 History of DVT and PE Gastroesophageal reflux disease Fibromyalgia Osteoarthritis GI prophylaxis DVT prophylaxis Full code Discharge disposition Patient is being discharged in a stable condition with guarded prognosis to [facility] [address]. Patient will follow-up with Dr. Fischer in the outpatient setting upon discharge. Patient is to continue with outpatient follow-up with orthopedics as scheduled. Total time taken is greater than 35 minutes. Hospital course This is a pleasant 74 years old female who presents because of fall from home. Patient states she tripped and fell. Patient having extensive right hip pain also radiating to her knee and difficulty ambulating. Patient was noted to have an acute comminuted fracture of the right inferior pubic rami and right ilium fracture on CT imaging. Patient evaluated by orthopedics recommending conservative management and continued pain management along with PT/OT therapy. Patient continued to be hospitalized requiring IV pain medications for control having continued significant pain. Patient evaluated by physical therapy recommending rehab and patient is now agreeable. Patient has been accepted at [facility] and has received insurance authorization. Patient to continue with PT/OT therapy outpatient for continued strength and mobility. Patient to follow-up with orthopedics outpatient. Please refer to other consultation notes for further documentation. Guarded prognosis and high risk for readmissions given continued pain and significant comorbidities. Physical exam: GENERAL: The patient is alert and oriented x3, currently sitting up in the chair reporting significant pain. Well developed, obese HEENT: Pupils are round and equally reacting to light. EOMI. No scleral icterus. No conjunctival pallor. Normocephalic, atraumatic. No pharyngeal erythema. No thyromegaly. CARDIOVASCULAR: S1 and S2 muffled PULMONARY: Diminished breath sounds bilaterally otherwise chest is clear to auscultation, no wheezing , no crackles. ABDOMEN: Soft, obese, nontender, nondistended, normoactive bowel sounds. No palpable organomegaly. MUSCULOSKELETAL: No joint swelling or deformity. EXTREMITIES: No cyanosis, clubbing, or pedal edema. NEUROLOGICAL: Gross neurological examination did not reveal any focal deficits. Diffusely weak SKIN: No rashes. no petechiae. Please refer to medication reconciliation sheet for a list of medications. The impression and plan of care has been dictated by Gloria Amato, Nurse Practitioner as directed. Dr. James MD I have performed a history and examination and MDM of this patient, discussed the same with the dictator, and agree with the dictator's assessment and plan as written ,documented as a scribe. Based on total visit time, I have performed more than 50% of the visit. Patient Condition at Discharge: Stable Plan - Discharge Summary Discharge Rx Participant: Yes New Discharge Prescriptions: New Heparin Sodium,Porcine (1 ml) [Heparin Sodium] 5,000 unit SQ Q8HR each HYDROcodone/APAP 7.5-325MG [[place] 7.5-325] 1 each PO Q4H PRN #6 tab PRN Reason: Pain Acetaminophen Tab [Tylenol] 650 mg PO Q6HR PRN tab PRN Reason: Mild Pain Or Fever > 100.5 Continue Amitriptyline HCl [Elavil] 25 mg PO HS PRN PRN Reason: SLEEP Potassium Chloride [Klor-Con 10] 10 meq PO TID Cyclobenzaprine [Flexeril] 10 mg PO TID PRN PRN Reason: Pain busPIRone HCl [Buspar] 5 mg PO BID allopurinoL [Zyloprim] 100 mg PO DAILY Torsemide [Demadex] 20 mg PO DAILY Levothyroxine Sodium [Synthroid] 100 mcg PO SUMOWEFR Pravastatin Sodium [Pravachol] 20 mg PO HS Metoprolol Succinate (ER) [Toprol XL] 25 mg PO DAILY Levothyroxine Sodium [Synthroid] 112 mcg PO TUTHSA Triamcinolone 0.1% Cream [Kenalog 0.1% Cream] 1 applicatio TOPICAL BID Discontinued HYDROcodone/APAP 10-325MG [[place] 10-325] 1 tab PO Q6HR PRN PRN Reason: Pain Discharge Medication List Amitriptyline HCl [Elavil] 25 mg PO HS PRN 05/12/14 [History] Potassium Chloride [Klor-Con 10] 10 meq PO TID 05/12/14 [History] Cyclobenzaprine [Flexeril] 10 mg PO TID PRN 09/11/21 [History] Levothyroxine Sodium [Synthroid] 100 mcg PO SUMOWEFR 04/12/25 [History] Levothyroxine Sodium [Synthroid] 112 mcg PO TUTHSA 04/12/25 [History] Metoprolol Succinate (ER) [Toprol XL] 25 mg PO DAILY 04/12/25 [History] Pravastatin Sodium [Pravachol] 20 mg PO HS 04/12/25 [History] Torsemide [Demadex] 20 mg PO DAILY 04/12/25 [History] Triamcinolone 0.1% Cream [Kenalog 0.1% Cream] 1 applicatio TOPICAL BID 04/12/25 [History] allopurinoL [Zyloprim] 100 mg PO DAILY 04/12/25 [History] busPIRone HCl [Buspar] 5 mg PO BID 04/12/25 [History] Acetaminophen Tab [Tylenol] 650 mg PO Q6HR PRN tab 04/18/25 [Rx] HYDROcodone/APAP 7.5-325MG [[place] 7.5-325] 1 each PO Q4H PRN #6 tab 04/18/25 [Rx] Heparin Sodium,Porcine (1 ml) [Heparin Sodium] 5,000 unit SQ Q8HR each 04/18/25 [Rx] Follow up Appointment(s)/Referral(s): [facility] [place], [NON-STAFF] - As Needed Susannah Fischer DO [Primary Care Provider] - 1-2 days Edgar Ware DO [Doctor of Osteopathic Medicine] - 2 Weeks Activity/Diet/Wound Care/Special Instructions: Patient is going to [facility] Activity as tolerated with restrictions per orthopedics Follow-up with primary care provider on discharge Continue taking medications as prescribed Please return to the Emergency Department if symptoms worsen or any other concerns. Please only weight-bear as tolerated and follow-up with provided o rthopedic specialist. Take pain medication as needed and muscle relaxer as needed. Please do not take muscle relaxer with [place]. You may take ibuprofen/Motrin with the [place]. Toe-touch weight-bearing to the right lower extremity with a walker. Please follow up with [facility] and call with any questions or concerns, . Discharge Disposition: TRANSFER TO SNF/ECF
== END 2025-04-18 17:51 | DRG 536 ==
LOC: EC 13:40 → SUPCPDRO 13:40 → 4SSUR 17:42
PROVIDERS: ADMIT Internal Medicine; ATTEND Internal Medicine
DX: S32.301A Unspecified fracture of right ilium, initial encounter for closed fracture (principal); N17.9 Acute kidney failure, unspecified; S32.591A Other specified fracture of right pubis, initial encounter for closed fracture; E03.9 Hypothyroidism, unspecified; I12.9 Hypertensive chronic kidney disease with stage 1 through stage 4 chronic kidney disease, or unspecified chronic kidney disease; F32.A Depression, unspecified; Z68.37 Body mass index [BMI] 37.0-37.9, adult; N18.9 Chronic kidney disease, unspecified; E78.5 Hyperlipidemia, unspecified; K21.9 Gastro-esophageal reflux disease without esophagitis; E66.9 Obesity, unspecified; W01.0XXA Fall on same level from slipping, tripping and stumbling without subsequent striking against object, initial encounter; M79.7 Fibromyalgia; R79.89 Other specified abnormal findings of blood chemistry; M19.90 Unspecified osteoarthritis, unspecified site; Z86.711 Personal history of pulmonary embolism; Z86.718 Personal history of other venous thrombosis and embolism; Z79.890 Hormone replacement therapy; Z88.5 Allergy status to narcotic agent; Z88.0 Allergy status to penicillin; Z88.2 Allergy status to sulfonamides; Z88.8 Allergy status to other drugs, medicaments and biological substances; Z87.891 Personal history of nicotine dependence; Z96.641 Presence of right artificial hip joint; Z79.01 Long term (current) use of anticoagulants; Z79.899 Other long term (current) drug therapy
CPT/HCPCS: 36410; 71045; 73502; 76937; 80048; 80053; 81001; 84132; 85025; 96372; 99285